=== PATIENT | female | born 1935 | race Caucasian/White ===

== ENCOUNTER → 2017-06-09 | Outpatient (CLI) | payer MEDICARE, BC, MEDICAID ==
[2016-03-09 10:12] VITALS: BMI 26.9
[~2017-06-09] MED LIST: ACET-2031 PO; ACET-2043 PO; ACET650S35 RC; ARI2 PO; ASCO250T86 PO; ASPI-757 PO; ATOR10TA65 PO; BETA1TAB PO; CALC300T5 PO; CEPH250C37 PO; CEPH500C24 PO; CHOL200025 PO; CHOL500025 PO; DIA5 PO; DIAZ2TAB74 PO; DIPH-1 PO; DIPH-740 PO; DONE5TAB74 PO; DULO30CA6 PO; DULO60CA56 PO; DULO60CA7 PO; ENOX60DI10 SQ; ESOM20CA31 PO; FERR-41 PO; FERR325T14 PO; FLUO-202 PO; FOLI-68 PO; GABA-547 PO; GABA-549 PO; GUAI118L69 PO; HYDR-2966 PO; HYDR-385 PO; HYDR12.561 PO; IPRA3AMP21 IH; LACT1CAP74 PO; LEVO25TA57 PO; LIDO1ADH44 TOP; LIDO700A29 TD; LOPE1LIQ49 PO; LOPE1TAB55 PO; LOR5/325 PO; LORA-1455 PO; MELA1TAB9 PO; MELA3TAB31 PO; MIRT-22 PO; MIRT-25 PO; MIRT7.5T2 PO; MOM PO; MULT-820 PO; MULT1TAB64 PO; NIT4 SL; OMEP-125 PO; ONDA4TAB SL; ONDA4TAB9 PO; PANT20TA27 PO; POLY15DR54 OP; POTA20TA94 PO; QUET25TA30 PO; QUET50TA21 PO; RANI-375 PO; RANI75TA5 PO; TRAM-420 PO; TRAZ-156 PO; TRAZ-163 PO; VALA100059 PO; VIT-7 PO; VITA1CAP46 PO; WARF-18 PO; WARF2.5T11 PO; [UNRECOGNIZED DRUG - CODE] MC; [UNRECOGNIZED DRUG - CODE] MM; [UNRECOGNIZED DRUG - CODE] OU; [UNRECOGNIZED DRUG - CODE] PO; [UNRECOGNIZED DRUG - OTHER]; [UNRECOGNIZED DRUG - REMARK]; [UNRECOGNIZED DRUG - SUPPLY]
[2017-06-09 08:36] LABS: INR 1.49
== END ==
LOC: ZZSPRING 00:49
PROVIDERS: ATTEND Nurse Practitioner Family
DX: Z51.81 Encounter for therapeutic drug level monitoring (principal); Z79.01 Long term (current) use of anticoagulants
CPT/HCPCS: 36415; 85610

== ENCOUNTER → 2017-06-15 | Outpatient (CLI) | payer MEDICARE, BC, MEDICAID ==
[2016-03-09 10:12] VITALS: BMI 26.9
[~2017-06-15] MED LIST changes: +FERR-53 PO; -FERR325T14 PO
[2017-06-15 08:37] LABS: INR 1.62
== END ==
LOC: ZZSPRING 01:52
PROVIDERS: ATTEND Nurse Practitioner Family
DX: Z51.81 Encounter for therapeutic drug level monitoring (principal); Z79.01 Long term (current) use of anticoagulants
CPT/HCPCS: 36415; 85610

== ENCOUNTER → 2017-06-22 | Outpatient (CLI) | payer MEDICARE, BC, MEDICAID ==
[2016-03-09 10:12] VITALS: BMI 26.9
[~2017-06-22] MED LIST changes: +METH4TAB66 PO
[2017-06-22 08:37] LABS: INR 2.07
== END ==
LOC: ZZSPRING 02:26
PROVIDERS: ATTEND Nurse Practitioner Family
DX: Z51.81 Encounter for therapeutic drug level monitoring (principal); Z79.01 Long term (current) use of anticoagulants
CPT/HCPCS: 36415; 85610

== ENCOUNTER → 2017-06-22 | Outpatient (CLI) | payer MEDICARE, BC, MEDICAID ==
[2016-03-09 10:12] VITALS: BMI 26.9
--- NOTE | 2017-06-22 15:05 | RADIOLOGY IMAGING REPORT ---
FACILITY: [facility] - [place] PATIENT NAME: Breanna Schwab : 1935 MR: [id number] V: [id number] EXAM DATE: ORDERING PHYSICIAN: PEACE CHAVEZ TECHNOLOGIST: [place] [facility] [place] : 1935 Visit/Account:[id number] Date of Sevice: 06/22/2017 SHOULDER MIN 2 VIEWS RIGHT HISTORY: Right shoulder pain COMPARISON: None FINDINGS: Right shoulder: There is no evidence of acute fracture or dislocation. Mildly to moderate degenerati ve changes with osteophytes. Tiny spurs at the AC joint. IMPRESSION: 1. Mild-moderate degenerative changes at the glenohumeral joint. Report Dictated By: Yung Arroyo MD at 06/22/2017 3:00 PM Report E-Signed By: Yung Arroyo MD at 06/22/2017 3:01 PM WSN:[id number]
== END ==
LOC: RAD 14:11
PROVIDERS: ATTEND Nurse Practitioner Primary Care
DX: M19.011 Primary osteoarthritis, right shoulder (principal)

== ENCOUNTER → 2017-07-06 | Outpatient (CLI) | payer MEDICARE, BC, MEDICAID ==
[2016-03-09 10:12] VITALS: BMI 26.9
[~2017-07-06] MED LIST changes: +SIME125T3 PO
[2017-07-06 09:34] LABS: INR 3.44
== END ==
LOC: ZZSPRING 02:34
PROVIDERS: ATTEND Nurse Practitioner Family
DX: Z51.81 Encounter for therapeutic drug level monitoring (principal); Z79.01 Long term (current) use of anticoagulants
CPT/HCPCS: 36415; 85610

== ENCOUNTER 2017-07-11 06:11 | Inpatient (IN) | payer MEDICARE, BC, MEDICAID ==
[2017-07-10 08:13] VITALS: BP 132/64
[~2017-07-11] VITALS: Ht 154.9 cm; Wt 74.5 kg
--- NOTE | 2017-07-11 06:31 | ER Report ---
History and Physical Time Seen By MD: 06:30 Hx. of Stated Complaint: patient is from [facility]; pt has had upper right side abdominal pain that started 0500; patient states the pain instantly hit; patient vomited in ER; brown emesis (BABAK MORAN MD) HPI/ROS CHIEF COMPLAINT: abdominal pain and vomiting HISTORY OF PRESENT ILLNESS: This is an 81 year old female. She awoke this morning and was in the process of getting up. She felt pain in the right upper quadrant of her abdomen. Severe pain. Worsened with movement or pressure there. Has felt bloated and more gassy than normal. She has some brown emesis as well. No rashes. History of ileostomy in the past that was reversed. No fevers or chills. No problems with urination. Last bowel movement was yesterday morning. She states that her bowel are constantly changing, but denies diarrhea. (BABAK MORAN MD) Allergies: Coded Allergies: No Known Drug Allergies (Unverified , 07/11/17) Home Meds Active Scripts Warfarin Sodium (WARFARIN SODIUM) 5 Mg Tablet, 0.5-1 TAB PO DAILY, #30 TAB 5 Refills take 2.5mg on Wednesday and Wednesday's and 5mg all other days. Or as instructed Prov:VELIA MCMANUS APRN-Debo 07/06/17 Quetiapine Fumarate (SEROQUEL) 25 Mg Tablet, 0.5-1 TAB PO BID, #453 TAB 1 Refill 0.5 tab po QAM and 1 tab po QHS Prov:VELIA MCMANUS APRN-Debo 06/21/17 Gabapentin (GABAPENTIN) 100 Mg Capsule, 2 TAB PO TID, #180 CAPSULE 5 Refills Prov:VELIA MCMANUS APRN-C 06/11/17 Omeprazole (OMEPRAZOLE) 20 Mg Capsule.dr, 1 CAP PO QDAY, #90 CAP 3 Refills Prov:VELIA MCMANUS APRN-C 04/07/17 Folic Acid (FOLIC ACID) 1 Mg Tablet, 1 MG PO QDAY, #90 TAB 1 Refill Prov:VELIA MCMANUS APRN-Debo 03/11/17 Atorvastatin Calcium (ATORVASTATIN CALCIUM) 10 Mg Tablet, 1 TAB PO QHS, #90 TAB 3 Refills Prov:VELIA MCMANUS APRN-C 03/11/17 Levothyroxine Sodium (SYNTHROID) 25 Mcg Tablet, 1 TAB PO QDAY, #90 TAB 1 Refill Prov:VEILA MCMANUS APRN-C 01/21/17 Glycerin/Propylene Glycol (ARTIFICIAL TEARS DROPS) 30 Ml Drops, 2 GTT OU QID, # 30 ML 5 Refills Prov:VELIA MCMANUS APRN-C 01/18/17 Acetaminophen (ACETAMINOPHEN) 500 Mg Tablet, 1 TAB PO TID, #270 TAB Prov:VELIA MCMANUS APRN-C 11/06/16 Cholecalciferol (Vitamin D3) (VITAMIN D3) 2,000 Unit Capsule, 1 CAP PO DAILY, # 90 CAP 1 Refill Prov:VELIA MCMANUS APRN-C 10/09/16 Multivitamin (MULTIVITAMINS) 1 Each Tablet, 1 TAB PO DAILY, #30 TAB 11 Refills Prov:LORENE GAO MD 08/03/16 Vitamin B Complex (VITAMIN B COMPLEX) 1 Each Capsule, 1 EACH PO BID, #180 CAPSULE 1 Refill Prov:VELIA MCMANUS APRN-C 07/15/16 Warfarin Sodium (WARFARIN SODIUM) 2.5 Mg Tablet, 2.5 MG PO T,W,TH,S,KELLY, #30 TAB 5 Refills Prov:VELIA MCMANUS APRN-C 05/13/16 Reported Medications Duloxetine Hcl (CYMBALTA) 60 Mg Capsule.dr, 60 MG PO BID, #10 CAP 07/11/17 Zeaxanthin (ZEAXANTHIN) 100 Gm Powder 07/11/17 Discontinued Scripts Simethicone (SIMETHICONE) 125 Mg Tab.chew, 1 TAB PO TID, #30 TAB.CHEW 2 Refills Prov:VELIA MCMANUS APRN-C 06/30/17 Methylprednisolone (METHYLPREDNISOLONE) 4 Mg Tab.ds.pk, 4 MG PO DIRECTED, #1 PACK 0 Refills Prov:PEACE CHAVEZ DNP, EXCHANGE OPERATOR-BC 06/22/17 Hydrocodone Bit/Acetaminophen (HYDROCODON-ACETAMINOPHEN 5-325) 1 Each Tablet, 1 EACH PO TID Y for PAIN, #90 TAB 0 Refills Hold for sedation Prov:VELIA MCMANUS RAHUL EXCHANGE OPERATOR-C 06/21/17 Duloxetine Hcl (CYMBALTA) 60 Mg Capsule.dr, 60 MG PO QDAY, #90 CAP 1 Refill Prov:VELIA MCMANUS APRN EXCHANGE OPERATOR-C 06/10/17 Valacyclovir Hcl (VALACYCLOVIR) 1,000 Mg Tablet, 1 TAB PO TID, #21 TAB Prov:VELIA MCMANUS RAHUL EXCHANGE OPERATOR-C 04/09/17 Mirtazapine (MIRTAZAPINE) 15 Mg Tablet, 1 TAB PO QHS, #30 TAB 5 Refills Prov:VELIA MCMANUS RAHUL VILLATOROP-C 04/07/17 Lidocaine (Aspercreme) 4 % Adh..patch, 1-2 PATCH TOP QHS, #60 PATCH 5 Refills Apply daily at bedtime. Leave in place for 12 hrs. 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 It sounds like she has had a colostomy reversed, hysterectomy. (BABAK MORAN MD) Reviewed Nurses Notes: Yes (BABAK MORAN MD) Hx Smoking: Yes Smoking Status: Former Smoker Hx Substance Use Disorder: No Hx Alcohol Use: No (BABAK MORAN MD) Constitutional Vital Sign - Last 24 Hours 07/11/17 07/11/17 07/11/17 07/11/17 06:11 06:17 06:18 06:41 Temp 98.2 Pulse ??? 112 87 Resp 17 B/P (MAP) 146/86 (106) 146/86 Pulse Ox 83 92 O2 Delivery Room Air 07/11/17 07/11/17 06:56 07:11 Pulse 86 86 Pulse Ox 91 93 (CELESTINE FELIPE MD) Physical Exam General Appearance: The patient is alert. She is in acute distress due to pain. Eyes: Pupils are equal, round. No pallor, injection or icterus. ENT: Dry mucous membranes, but otherwise normal. Neck: Supple and non tender. Respiratory: Lungs are clear to auscultation. Cardiovascular: Regular rate and rhythm. No murmurs, gallops or rubs. Normal capillary refill. No edema. Gastrointestinal: Abdomen is very firm and tender, mainly tender in right upper abdomen, but discomfort throughout. Guarding present, but no rebound. Hypoactive bowel sounds. Neurological: Alert and oriented. General weakness, but non-focal. Skin: Warm and dry. No rash. DIFFERENTIAL DIAGNOSIS: After history and physical exam, differential diagnosis was considered for abdominal pain including but not limited to bowel obstruction. ([facility]) Medical Decision Making Data Points Result Diagram: 07/12/17 0455 07/12/17 0455 Laboratory Hematology Test 07/11/17 06:30 Red Blood Count 5.43 M/uL (4.17-5.56) Mean Corpuscular Volume 75.5 fL (80.0-96.0) Mean Corpuscular Hemoglobin 23.6 pg (26.0-33.0) Mean Corpuscular Hemoglobin Concent 31.2 g/dL (32.0-36.0) Red Cell Distribution Width 19.4 % (11.5-14.5) Mean Platelet Volume 7.9 fL (7.2-11.1) Neutrophils (%) (Auto) 90.0 % (39.4-72.5) Lymphocytes (%) (Auto) 4.8 % (17.6-49.6) Monocytes (%) (Auto) 3.9 % (4.1-12.4) Eosinophils (%) (Auto) 0.8 % (0.4-6.7) Basophils (%) (Auto) 0.5 % (0.3-1.4) Nucleated RBC Relative Count (auto) 0.0 /100WBC Neutrophils # (Auto) 12.3 K/uL (2.0-7.4) Lymphocytes # (Auto) 0.7 K/uL (1.3-3.6) Monocytes # (Auto) 0.5 K/uL (0.3-1.0) Eosinophils # (Auto) 0.1 K/uL (0.0-0.5) Basophils # (Auto) 0.1 K/uL (0.0-0.1) Nucleated RBC Absolute Count (auto) 0.00 K/uL Peripheral Blood Smear No Y/N Prothrombin Time 22.1 seconds (12.0-14.4) Prothromb Time International Ratio 1.89 Activated Partial Thromboplast Time 31 seconds (23-35) Sodium Level 140 mmol/L (137-145) Potassium Level 4.6 mmol/L (3.5-5.0) Chloride Level 102 mmol/L (98-107) Carbon Dioxide Level 26 mmol/L (22-31) Blood Urea Nitrogen 22 mg/dl (7-18) Creatinine 1.30 mg/dl (0.52-1.04) Glomerular Filtration Rate Calc 39.3 Random Glucose 197 mg/dl (75-110) Lactate 1.7 mmol/L (0.7-2.1) Calcium Level 9.6 mg/dl (8.4-10.2) Total Bilirubin 0.7 mg/dl (0.2-1.3) Aspartate Amino Transf (AST/SGOT) 37 U/L (0-35) Alanine Aminotransferase (ALT/SGPT) 37 U/L (0-56) Alkaline Phosphatase 121 U/L (0-126) C-Reactive Protein 1.1 mg/dl (<1.0) Total Protein 7.4 gm/dl (6.3-8.2) Albumin 4.3 g/dl (3.5-5.0) Amylase Level 92 U/L (0-110) Lipase 78 U/L (23-300) Chemistry Test 07/11/17 06:30 White Blood Count 13.7 k/uL (4.5-11.0) Red Blood Count 5.43 M/uL (4.17-5.56) Hemoglobin 12.8 g/dL (12.0-16.0) Hematocrit 41.0 % (34.0-47.0) Mean Corpuscular Volume 75.5 fL (80.0-96.0) Mean Corpuscular Hemoglobin 23.6 pg (26.0-33.0) Mean Corpuscular Hemoglobin Concent 31.2 g/dL (32.0-36.0) Red Cell Distribution Width 19.4 % (11.5-14.5) Platelet Count 325 K/uL (150-450) Mean Platelet Volume 7.9 fL (7.2-11.1) Neutrophils (%) (Auto) 90.0 % (39.4-72.5) Lymphocytes (%) (Auto) 4.8 % (17.6-49.6) Monocytes (%) (Auto) 3.9 % (4.1-12.4) Eosinophils (%) (Auto) 0.8 % (0.4-6.7) Basophils (%) (Auto) 0.5 % (0.3-1.4) Nucleated RBC Relative Count (auto) 0.0 /100WBC Neutrophils # (Auto) 12.3 K/uL (2.0-7.4) Lymphocytes # (Auto) 0.7 K/uL (1.3-3.6) Monocytes # (Auto) 0.5 K/uL (0.3-1.0) Eosinophils # (Auto) 0.1 K/uL (0.0-0.5) Basophils # (Auto) 0.1 K/uL (0.0-0.1) Nucleated RBC Absolute Count (auto) 0.00 K/uL Peripheral Blood Smear No Y/N Prothrombin Time 22.1 seconds (12.0-14.4) Prothromb Time International Ratio 1.89 Activated Partial Thromboplast Time 31 seconds (23-35) Glomerular Filtration Rate Calc 39.3 Lactate 1.7 mmol/L (0.7-2.1) Calcium Level 9.6 mg/dl (8.4-10.2) Total Bilirubin 0.7 mg/dl (0.2-1.3) Aspartate Amino Transf (AST/SGOT) 37 U/L (0-35) Alanine Aminotransferase (ALT/SGPT) 37 U/L (0-56) Alkaline Phosphatase 121 U/L (0-126) C-Reactive Protein 1.1 mg/dl (<1.0) Total Protein 7.4 gm/dl (6.3-8.2) Albumin 4.3 g/dl (3.5-5.0) Amylase Level 92 U/L (0-110) Lipase 78 U/L (23-300) Coagulation Test 07/11/17 06:30 Prothrombin Time 22.1 seconds Prothromb Time International Ratio 1.89 Activated Partial Thromboplast Time 31 seconds (CELESTINE FELIPE MD) EKG/Imaging EKG Interpretation 07/11/2017 7:55:50 am EKG shows sinus tachycardia with frequent PVCs with nonspecific ST segment and T -wave abnormalities. (CELESTINE FELIPE MD) ED Course/Re-evaluation ED Course 07/11/2017 8:21:26 am spoke with from general surgery history physical exam pertinent lab data and imaging studies discussed. Dr. Frank recommends a small bowel follow-through with Gastrografin and an NG tube. We will perform these in the emergency department. He further recommended admission to the medicine service case was discussed with Dr. Higgins who agreed to accept patient at this time. Family was made aware of our decision to admit to medicine service with surgical consultation no questions or concerns at this time. Decision to Disposition Date: Jul 11, 2017 Decision to Disposition Time: 08:21 Turned Over 07/11/2017 7:19:03 am except to care of patient at 0705; briefly this is an 81- year-old female who woke this morning with severe abdominal pain specifically to the right upper quadrant. On exam she is diffusely tender but mostly tender in the right upper quadrant abdomen is firm. Reviewing the medical record I realized the patient has Coumadin listed as one of her medications this was confirmed by the daughter. I have added a PT INR to her blood work at this time. Patient is pending CT scan. White blood cell count was elevated with a left shift which raises concerns about possible intra-abdominal infection versus obstruction. (CELESTINE FELIPE MD) Depart Departure Latest Vital Signs Vital Signs Date Time Temp Pulse Resp B/P (MAP) Pulse Ox O2 Delivery O2 Flow Rate FiO2 07/11/17 07:11 86 93 07/11/17 06:18 98.2 17 146/86 Room Air (CELESTINE FELIPE MD) Impression: Primary Impression: Small bowel obstruction Condition: Condition Unchanged Disposition: Admitted from ER (to Dr Groves) Referrals: VELIA MCMANUS APRN EXCHANGE OPERATOR-C (PCP) BABAK MORAN MD Jul 11, 2017 06:31 CELESTINE FELIPE MD Jul 11, 2017 07:20
[2017-07-11] MEDS ORDERED: NS(*) 0.9% 1000 ML BAG 1,000 ML IV ONE (06:43)
[2017-07-11] MEDS ORDERED: DULO60CA56 PO (06:45)
[2017-07-11] MEDS ORDERED: MORPHINE 4 MG/ML SDV IVP ONE (06:45)
[2017-07-11] MEDS ORDERED: ZEAX100P (06:45)
[2017-07-11] MEDS ORDERED: ONDANSETRON 4 MG/2 ML VIAL IVP ONE (06:45)
[2017-07-11] MEDS ORDERED: PANTOPRAZOLE SOD 40 MG IV VIAL IVP ONE (06:45)
[2017-07-11 06:53] LABS: PLATELET COUNT, AUTOMATED 325 K/uL (150-450)
[2017-07-11] MEDS ORDERED: IOPAMIDOL 76% 75 ML INFUS BTL 75 ML ONE (07:04)
[2017-07-11] MEDS ORDERED: NS 0.9% 20 ML SDV 60 ML ONE (07:04)
[2017-07-11 07:36] LABS: INR 1.89
--- NOTE | 2017-07-11 08:00 | EKG ---
FACILITY: [facility] - [place] PATIENT NAME: GINA ZUNIGA : [id number] MR: [id number] V: [id number] EXAM DATE: ORDERING PHYSICIAN: CELESTINE FELIPE TECHNOLOGIST: SHEELA Test Reason : ABD PAIN Blood Pressure : / mmHG Vent. Rate : 101 BPM Atrial Rate : 101 BPM P-R Int : 160 ms QRS Dur : 074 ms QT Int : 382 ms P-R-T Axes : 054 022 011 degrees QTc Int : 495 ms Sinus tachycardia with frequent premature ventricular complexes Nonspecific ST and T wave abnormality QTc prolonged When compared with ECG of 11-MAR-2016 11:09, premature ventricular complexes are now present Nonspecific T wave abnormality now evident in Inferior leads Nonspecific T wave abnormality now evident in Anterolateral leads Confirmed by FERNANDO NATH ([id number]) on 07/11/2017 9:24:27 AM Referred By: MATTEO Confirmed By:FERNANDO NATH
--- NOTE | 2017-07-11 08:03 | RADIOLOGY IMAGING REPORT ---
FACILITY: [facility] - [place] PATIENT NAME: Breanna Schwab : 1935 MR: [id number] V: [id number] EXAM DATE: ORDERING PHYSICIAN: BABAK MORAN TECHNOLOGIST: Location: [facility] [place] Patient: Breanna Schwab : 1935 Visit/Account:[id number] Date of Sevice: 07/11/2017 ABDOMEN/PELVIS WITH CONTRAST COMPARISONS: CT abdomen and pelvis with and without contrast dated August 14, 2016 ADDITIONAL PERTINENT HISTORY: Abdominal pain with vomiting TECHNIQUE: Multiple axial images were obtained from the lung bases through the lesser trochanters bef ore and after the IV administration of IV contrast. One of the following dose optimization technique s was utilized in the performance of this exam: Automated exposure control; adjustment of the mA and/ or kV according to the patient's size; or use of an iterative reconstruction technique. Specific de tails can be referenced in the facility's radiology CT exam operational policy. CONTRAST: 75 ml of Isovue-370 FINDINGS: Lung bases: Minimal bibasilar regions of scarring with a small amount of loculated air within the pos terior pleural space at the left lung base. There is also continued pleural thickening in this region . Free air and free fluid: Small amount of free fluid overlying the liver. Liver: Negative. Spleen: Small low-attenuation lesion involving the medial aspect of the spleen. This is stable from p revious exam. Kidneys, ureters and urinary bladder: Low-attenuation lesions involving both kidneys compatible with simple appearing cysts. Adrenal glands: Negative. Pancreas: Negative. Gallbladder: Negative. Bowel and mesentery: Multiple dilated loops of small bowel with air-fluid levels with a transition po int in the mid lower abdomen likely within the distal aspects of the jejunum. Findings compatible wit h a high-grade small bowel obstruction.. Small hiatal hernia. Pelvic contents: Negative Lymph node assessment: Negative. Retroperitoneum: Negative. Abdominal vasculature: Atherosclerotic disease of the abdominal aorta and its major branches. Surrounding soft tissues: Negative. Osseous structures: Spondylitic change involving the thoracolumbar spine. Mild grade 1 anterior listh esis of L4 on L5. IMPRESSION: 1. Findings of a high-grade small bowel obstruction with the transition point likely within the dista l jejunum. 2. Simple appearing cysts involving both kidneys as well as the spleen. Report Dictated By: Jonathan Ceballos MD at 07/11/2017 7:51 AM Report E-Signed By: Jonathan Ceballos MD at 07/11/2017 7:58 AM WSN:[id number]
[2017-07-11] MEDS ORDERED: DIATRIZOATE MEGL/DIATRIZOA SOD 367 MG/ML SOLN ONE (08:21)
--- NOTE | 2017-07-11 08:26 | RADIOLOGY IMAGING REPORT ---
FACILITY: [facility] - [place] PATIENT NAME: Breanna Schwab : 1935 MR: [id number] V: [id number] EXAM DATE: ORDERING PHYSICIAN: CELESTINE FELIPE TECHNOLOGIST: [place] [facility] [place] : 1935 Visit/Account:[id number] Date of Sevice: 07/11/2017 CHEST SINGLE AP Indication: Abdominal pain. Comparison: None available Findings: The lungs are clear and well aerated. No pneumothorax or pleural effusion. Heart size is borderline enlarged. Scattered atherosclerosis within the aortic arch. Within the abdomen, there are multiple air-filled and dilated central small bowel loops. Correlate cl inically. IMPRESSION: 1. No acute cardiopulmonary process. 2. Dilated air filled central small bowel loops within the upper abdomen. Correlate clinically. Report Dictated By: Kevin Salazar at 07/11/2017 8:20 AM Report E-Signed By: Kevin Salazar at 07/11/2017 8:21 AM WSN:[id number]
[2017-07-11 08:58] VITALS: BP 145/78
[2017-07-11] MEDS ORDERED: LIDOCAINE 2% JELLY 5 ML TUBE TP ONE (09:30)
[2017-07-11] MEDS ORDERED: PANTOPRAZOLE SOD 40 MG IV VIAL IVP SCH (09:55)
[2017-07-11] MEDS ORDERED: OLANZapine ZYDIS ODT 5MG TABDP PO PRN (09:55)
[2017-07-11] MEDS: NS(*) 0.9% 1000 ML BAG 1,000 ML IV PRN (10:29)
[2017-07-11] MEDS ORDERED: HYDROmorphone HCL 2 MG/ML SDV IVP PRN ×2 (10:35→19:25)
--- NOTE | 2017-07-11 10:39 | Gen Surgery History & Physical ---
History of Present Illness Chief Complaint nausea vomiting and abdominal pain History of Present Illness This 81 year old female with complex medical history presents from her care facility to [facility] ED with onset of nausea, vomiting, and abdominal pain. She does report having a small BM and passing some flatus yesterday. No history of fever or chills. She is s/p low anterior colon resection for adenocarcinoma with protective loop ileostomy by Dr. Pittman, followed by ileostomy take down complicated by enterocutaneous fistula. She subsequently healed this with bowel rest and TPN. She has since had a adenocarcinoma of the left lung which was resected. She has had DVT x 2 and is hypercoagulable with a lupus anticoagulant, heterozygous for Factor V Leiden mutation, and has known hyperhomocysteinemia. She is treated with Coumadin. She has not had any follow up imaging for her malignancies. She denies recent weight loss. She saw Dr. Pittman on 07/06 for a lipoma. The patient's daughter, a nurse her at [facility], was in the process of setting up PET/CT scan. History Home Meds Active Scripts Warfarin Sodium (WARFARIN SODIUM) 5 Mg Tablet, 0.5-1 TAB PO DAILY, #30 TAB 5 Refills take 2.5mg on Wednesday and Wednesday's and 5mg all other days. Or as instructed Prov:VELIA MCMANUS APRN-C 07/06/17 Quetiapine Fumarate (SEROQUEL) 25 Mg Tablet, 0.5-1 TAB PO BID, #453 TAB 1 Refill 0.5 tab po QAM and 1 tab po QHS Prov:VELIA MCMANUS APRN-C 06/21/17 Gabapentin (GABAPENTIN) 100 Mg Capsule, 2 TAB PO TID, #180 CAPSULE 5 Refills Prov:VELIA MCMANUS APRNP-C 06/11/17 Omeprazole (OMEPRAZOLE) 20 Mg Capsule., 1 CAP PO QDAY, #90 CAP 3 Refills Prov:VELIA MCMANUS APRN-C 04/07/17 Folic Acid (FOLIC ACID) 1 Mg Tablet, 1 MG PO QDAY, #90 TAB 1 Refill Prov:VELIA MCMANUS APRN-C 03/11/17 Atorvastatin Calcium (ATORVASTATIN CALCIUM) 10 Mg Tablet, 1 TAB PO QHS, #90 TAB 3 Refills Prov:VELIA MCMANUS APRNP-C 03/11/17 Levothyroxine Sodium (SYNTHROID) 25 Mcg Tablet, 1 TAB PO QDAY, #90 TAB 1 Refill Prov:VELIA MCMANUS APRN TIMBER HAND-C 01/21/17 Glycerin/Propylene Glycol (ARTIFICIAL TEARS DROPS) 30 Ml Drops, 2 GTT OU QID, # 30 ML 5 Refills Prov:VELIA MCMANUS APRN-C 01/18/17 Acetaminophen (ACETAMINOPHEN) 500 Mg Tablet, 1 TAB PO TID, #270 TAB Prov:VELIA MCMANUS APRN-C 11/06/16 Cholecalciferol (Vitamin D3) (VITAMIN D3) 2,000 Unit Capsule, 1 CAP PO DAILY, # 90 CAP 1 Refill Prov:VELIA MCMANUS APRN-C 10/09/16 Multivitamin (MULTIVITAMINS) 1 Each Tablet, 1 TAB PO DAILY, #30 TAB 11 Refills Prov:LORENE GAO MD 08/03/16 Vitamin B Complex (VITAMIN B COMPLEX) 1 Each Capsule, 1 EACH PO BID, #180 CAPSULE 1 Refill Prov:VELIA MCMANUS APRN-C 07/15/16 Warfarin Sodium (WARFARIN SODIUM) 2.5 Mg Tablet, 2.5 MG PO T,W,TH,S,KELLY, #30 TAB 5 Refills Prov:VELIA MCMANUS APRNP-C 05/13/16 Reported Medications Duloxetine Hcl (CYMBALTA) 60 Mg Capsule.dr, 60 MG PO BID, #10 CAP 07/11/17 Zeaxanthin (ZEAXANTHIN) 100 Gm Powder 07/11/17 Discontinued Scripts Simethicone (SIMETHICONE) 125 Mg Tab.chew, 1 TAB PO TID, #30 TAB.CHEW 2 Refills Prov:VELIA MCMANUS APRN-C 06/30/17 Methylprednisolone (METHYLPREDNISOLONE) 4 Mg Tab.ds.pk, 4 MG PO DIRECTED, #1 PACK 0 Refills Prov:PEACE CHAVEZ DNP, TIMBER HAND-BC 06/22/17 Hydrocodone Bit/Acetaminophen (HYDROCODON-ACETAMINOPHEN 5-325) 1 Each Tablet, 1 EACH PO TID Y for PAIN, #90 TAB 0 Refills Hold for sedation Prov:VELIA MCMANUS RAHUL VILLATOROP-Debo 06/21/17 Duloxetine Hcl (CYMBALTA) 60 Mg Capsule.dr, 60 MG PO QDAY, #90 CAP 1 Refill Prov:VELIA MCMANUS RAHUL VILLATOROP-Debo 06/10/17 Valacyclovir Hcl (VALACYCLOVIR) 1,000 Mg Tablet, 1 TAB PO TID, #21 TAB Prov:SHANNENCHAIMVELIA APRNP-C 04/09/17 Mirtazapine (MIRTAZAPINE) 15 Mg Tablet, 1 TAB PO QHS, #30 TAB 5 Refills Prov:VELIA MCMANUS APRN-Debo 04/07/17 Lidocaine (Aspercreme) 4 % Adh..patch, 1-2 PATCH TOP QHS, #60 PATCH 5 Refills Apply daily at bedtime. Leave in place for 12 hrs. Then leave off for 12 hrs prior to replacing with a new patch Prov:SHANNENVELIA SOSA APRN 11/19/16 Allergies: Coded Allergies: No Known Drug Allergies (Unverified , 07/11/17) Patient History: Aneurysm FATHER, , Age:50's - 60 FH: breast cancer BROTHER OR SISTER FH: stroke FH: stroke FH: stroke FH: stroke FHx: colon cancer BROTHER OR SISTER, , Age:60 years and older GERD GERD Hypertension Hypertension MS (multiple sclerosis) BROTHER OR SISTER, , Age:41 Review of Systems All Systems Reviewed/Normal: Yes, Except as Noted Eyes: Vision Change Gastrointestinal: Nausea, Vomiting, Abdominal Pain Psychiatric: Other (dementia) Exam General Appearance: Alert, Awake, No Acute Distress, Afebrile Neuro: No Gross deficits ENT: Oropharynx Clear (dry mouth) Neck: No Masses Cardiovascular: Regular Rate and Rhythm Respiratory: No Respiratory Distress, Clear to Auscultation GI: Other (Abdomen is protuberant, soft, minimal generalized tenderness, no peritoneal findings, rebound or involuntary guarding, Bowel sounds present.) Extremities: Soft and Non Tender Integumentary: Skin Intact without Lesion / Mass Psych: Alert & Oriented X3 Medical Decision Making Data Points Result Diagram: 07/11/17 0630 07/11/17 0630 Assessment and Plan Time Spent: > 30 min Copies to: JEAN PITTMAN MD Venous Thromboembolism VTE Risk Physician Assess for VTE Risk: Yes Patient's VTE Risk: High Antithrombotics Is Pt On Any Antithrombotics?: Yes LISSETH GILMORE MD Jul 11, 2017 10:39
[2017-07-11] MEDS: ACETAMINOPHEN(*)1000 MG/100 ML 100 ML IVPB PRN (10:43)
[2017-07-11 10:53] VITALS: Ht 154.9 cm; Wt 74.5 kg
--- NOTE | 2017-07-11 10:55 | History & Physical ---
History of Present Illness History of Present Illness 81yo female with a h/o adenocarcinoma of colon with resection and a temporary ileostomy who came to the ER for abdominal pain and nausea. For the last couple of weeks, she had had more "gas". She has been eating and having BM. No reported changes in the color, frequency or consistency of BM. Today, she reported RUQ abdominal pain that radiated to the left. She had nausea and vomited in the ER. No cp/sob. In the ER, an NG was attempted 5 times without success (It was placed by Dr. Colon, at the bedside). She received a liter of crystalloid, Protonix and Zofran. Currently, she denies nausea and abdominal pain. The NG in her nose is what is bothering her the most. History Problems: (1) History of stroke (2) Depression Status: Chronic (3) GERD (gastroesophageal reflux disease) Status: Chronic (4) CHF (congestive heart failure) Status: Resolved (5) Dementia Status: Chronic (6) History of DVT (deep vein thrombosis) Status: Chronic (7) CHRONIC ATRIAL FIBRILLATION Status: Chronic (8) Mixed hyperlipidemia Status: Chronic (9) Hypothyroid Status: Chronic (10) Lung cancer Onset Date: 11/15/2013 Status: Chronic (11) Cancer of sigmoid colon Onset Date: 10/17/2014 Status: Chronic (12) History of hysterectomy (13) History of appendectomy (14) History of tonsillectomy (15) S/P partial lobectomy of lung Status: Chronic (16) S/P partial colectomy Status: Chronic Home Meds Active Scripts Warfarin Sodium (WARFARIN SODIUM) 5 Mg Tablet, 0.5-1 TAB PO DAILY, #30 TAB 5 Refills take 2.5mg on Wednesday and Wednesday's and 5mg all other days. Or as instructed Prov:VELIA MCMANUS APRN-C 07/06/17 Quetiapine Fumarate (SEROQUEL) 25 Mg Tablet, 0.5-1 TAB PO BID, #453 TAB 1 Refill 0.5 tab po QAM and 1 tab po QHS Prov:VELIA MCMANUS APRNP-C 06/21/17 Gabapentin (GABAPENTIN) 100 Mg Capsule, 2 TAB PO TID, #180 CAPSULE 5 Refills Prov:VELIA MCMANUS APRN-C 06/11/17 Omeprazole (OMEPRAZOLE) 20 Mg Capsule.dr, 1 CAP PO QDAY, #90 CAP 3 Refills Prov:VELIA MCMANUS APRNP-C 04/07/17 Folic Acid (FOLIC ACID) 1 Mg Tablet, 1 MG PO QDAY, #90 TAB 1 Refill Prov:VELIA MCMANUS APRNP-C 03/11/17 Atorvastatin Calcium (ATORVASTATIN CALCIUM) 10 Mg Tablet, 1 TAB PO QHS, #90 TAB 3 Refills Prov:VELIA MCMANUS APRN [employer] COMPLIANCE OFFICER-C 03/11/17 Levothyroxine Sodium (SYNTHROID) 25 Mcg Tablet, 1 TAB PO QDAY, #90 TAB 1 Refill Prov:VELIA MCMANUS APRN-C 01/21/17 Glycerin/Propylene Glycol (ARTIFICIAL TEARS DROPS) 30 Ml Drops, 2 GTT OU QID, # 30 ML 5 Refills Prov:VELIA MCMANUS APRN-C 01/18/17 Acetaminophen (ACETAMINOPHEN) 500 Mg Tablet, 1 TAB PO TID, #270 TAB Prov:VELIA MCMANUS APRNP-C 11/06/16 Cholecalciferol (Vitamin D3) (VITAMIN D3) 2,000 Unit Capsule, 1 CAP PO DAILY, # 90 CAP 1 Refill Prov:VELIA MCMANUS APRN [employer]ANCE OFFICER-C 10/09/16 Multivitamin (MULTIVITAMINS) 1 Each Tablet, 1 TAB PO DAILY, #30 TAB 11 Refills Prov:LORENE GAO MD 08/03/16 Vitamin B Complex (VITAMIN B COMPLEX) 1 Each Capsule, 1 EACH PO BID, #180 CAPSULE 1 Refill Prov:VELIA MCMANUS APRNP-C 07/15/16 Warfarin Sodium (WARFARIN SODIUM) 2.5 Mg Tablet, 2.5 MG PO T,W,TH,S,KELLY, #30 TAB 5 Refills Prov:VELIA MCMANUS APRN [employer] COMPLIANCE OFFICER-C 05/13/16 Reported Medications Duloxetine Hcl (CYMBALTA) 60 Mg Capsule.dr, 60 MG PO BID, #10 CAP 07/11/17 Zeaxanthin (ZEAXANTHIN) 100 Gm Powder 07/11/17 Discontinued Scripts Simethicone (SIMETHICONE) 125 Mg Tab.chew, 1 TAB PO TID, #30 TAB.CHEW 2 Refills Prov:VELIA MCMANUS APRNP-C 06/30/17 Methylprednisolone (METHYLPREDNISOLONE) 4 Mg Tab.ds.pk, 4 MG PO DIRECTED, #1 PACK 0 Refills Prov:PEACE CHAVEZ DNP, BANK COMPLIANCE OFFICER-BC 06/22/17 Hydrocodone Bit/Acetaminophen (HYDROCODON-ACETAMINOPHEN 5-325) 1 Each Tablet, 1 EACH PO TID Y for PAIN, #90 TAB 0 Refills Hold for sedation Prov:VELIA MCMANUS APRNP-C 06/21/17 Duloxetine Hcl (CYMBALTA) 60 Mg Capsule.dr, 60 MG PO QDAY, #90 CAP 1 Refill Prov:VELIA MCMANUS APRNP-C 06/10/17 Valacyclovir Hcl (VALACYCLOVIR) 1,000 Mg Tablet, 1 TAB PO TID, #21 TAB Prov:VELIA MCMANUS APRNP-C 04/09/17 Mirtazapine (MIRTAZAPINE) 15 Mg Tablet, 1 TAB PO QHS, #30 TAB 5 Refills Prov:VELIA MCMANUS APRNP-C 04/07/17 Lidocaine (Aspercreme) 4 % Adh..patch, 1-2 PATCH TOP QHS, #60 PATCH 5 Refills Apply daily at bedtime. Leave in place for 12 hrs. Then leave off for 12 hrs prior to replacing with a new patch Prov:VELIA MCMANUS APRNP- 11/19/16 Allergies: Coded Allergies: No Known Drug Allergies (Unverified , 07/11/17) Patient History: Aneurysm FATHER, , Age:50's - 60 FH: breast cancer BROTHER OR SISTER FH: stroke FH: stroke FH: stroke FH: stroke FHx: colon cancer BROTHER OR SISTER, , Age:60 years and older GERD GERD Hypertension Hypertension MS (multiple sclerosis) BROTHER OR SISTER, , Age:41 Hx Smoking: Yes Smoking Status: Former Smoker Caffeine Intake: Coffee, Tea Caffeine/Cups Per Day: DECAF Hx Alcohol Use: No Hx Substance Use Disorder: No Social Drug Use: Never Review of Systems All Systems Reviewed/Normal: Yes, Except as Noted Exam Vital Signs Vital Signs Date Time Temp Pulse Resp B/P (MAP) Pulse Ox O2 Delivery O2 Flow Rate FiO2 07/11/17 08:58 97.2 90 16 145/78 (100) 98 Nasal Cannula 3.0 General Appearance: Alert, Awake, Other (She appears mildly uncomfortable.) Eyes: PERRLA ENT: Other (dry mucous membranes) Cardiovascular: Regular Rate and Rhythm Respiratory: Clear to Auscultation GI: Other (Hypoactive BS, soft, non-distended, mild discomfort periumbilically with palpation. No guarding or peritoneal signs.) Extremities: No Edema Integumentary: No Jaundice, No Cyanosis Medical Decision Making Data Points Result Diagram: 07/11/1762907/11/17 06 Item Value Date Time Lactate 1.7 mmol/L 07/11/17629 Creatinine 1.30 mg/dl H 07/11/17629 Creatinine 1.10 mg/dl H 11/19/16 1010 Aspartate Amino Transf (AST/SGOT) 37 U/L H 07/11/17 0630 Alanine Aminotransferase (ALT/SGPT) 37 U/L 07/11/17 0630 C-Reactive Protein 1.1 mg/dl H 07/11/17 0630 Neutrophils (%) (Auto) 90.0 % H 07/11/17 0630 Lymphocytes (%) (Auto) 4.8 % L 07/11/17 0630 Mean Corpuscular Volume 75.5 fL L 07/11/17 0630 Prothromb Time International Ratio 1.89 07/11/17 0630 EKG / Imaging Imaging CXR - 1. No acute cardiopulmonary process. 2. Dilated air filled central small bowel loops within the upper abdomen. Correlate clinically. Abd/Pelvis CT - 1. Findings of a high-grade small bowel obstruction with the transition point likely within the distal jejunum. 2. Simple appearing cysts involving both kidneys as well as the spleen. Assessment and Plan Problems: (1) Small bowel obstruction Status: Acute Assessment & Plan: She presented with sudden onset of RUQ pain that radiated to the left, but has complained of "gas" for a couple of weeks. CT confirmed a high-grade SBO with a possible transition point within the distal jejunum. Dr. Frank is following and has ordered a Gastrografin small bowel follow through study. (2) Depression Status: Chronic Assessment & Plan: Hold Cymbalta while NPO. (3) Hypercoagulable state Status: Chronic Assessment & Plan: She has a h/o DVT x2. Chronically on warfarin and INR is 1.89. Will hold warfarin and follow INR daily. If surgery is needed, then will reverse with FFP. If INR, drops too low then might consider a heparin drip. (4) GERD (gastroesophageal reflux disease) Status: Chronic Assessment & Plan: Chronically in omeprazole. Will use Protonix IV. (5) Dementia Status: Chronic Assessment & Plan: It is complicated by visual and tactile hallucinations. She chronically takes Seroquel. Will use Zydis scheduled and prn. QTc is borderline prolonged on ECG. However, the daughter is aware of the risks of arrhythmia and still would like her on antipsychotic medication. (6) Cancer of sigmoid colon Onset Date: 10/17/2014 Status: Chronic Assessment & Plan: She the cancer resected and had an ileostomy for a time. That was reversed. Each surgery was complicated by slow healing. (7) Lung cancer Onset Date: 11/15/2013 Status: Chronic Assessment & Plan: She had resection x2. Copies to: ZO DENIS MD; LISSETH FRANK MD; VELIA MCMANUS APRN BANK COMPLIANCE OFFICER-C; JEAN PITTMAN MD Venous Thromboembolism Antithrombotics Is Pt On Any Antithrombotics?: Yes Exam Sepsis Risk: No Definite Risk FERNANDO NATH MD Jul 11, 2017 10:55
[2017-07-11] MEDS: HYPROMELLOSE 0.4% LUB 15ML BTL OU SCH ×3 (13:00→21:13)
--- NOTE | 2017-07-11 16:46 | RADIOLOGY IMAGING REPORT ---
FACILITY: [facility] PATIENT NAME: Breanna Schwab : 1935 MR: [id number] V: [id number] EXAM DATE: ORDERING PHYSICIAN: CELESTINE FELIPE TECHNOLOGIST: Location: [facility] [place] Patient: Breanna Schwab : 1935 Visit/Account:[id number] Date of Sevice: 07/11/2017 Examination: Small bowel series HISTORY: Possible obstruction. Further evaluate. TECHNIQUE: A manager business banking image was obtained. Patient was then given water soluble contrast through the naso gastric tube. Subsequent overhead imaging was obtained at one hour and the 4 hour interval. FINDINGS: On the manager business banking images, nasogastric tube is in place with its tip overlying the left upper quadrant in t he expected location of the stomach. There are gas-filled small bowel loops within the central abdome n. Gas and stool seen within the colon and rectum. There is excreted contrast within the renal collec ting systems as well as the bladder. On the one-hour images, contrast is seen within the stomach and within scattered small bowel loops. There are better defined dilated, gas-filled small bowel loops wi thin the central abdomen and pelvis. On the 4 hour images, contrast is now identified within the cecu m, ascending colon and the transverse colon. No evidence to suggest a high-grade bowel obstruction. S ome residual air-filled bowel loops remain within the midabdomen. These are less prominent than on th e one-hour image. IMPRESSION: 1. No evidence of high-grade bowel obstruction. 2. Less pronounced air filled small bowel loops within the central abdomen between the one hour and 4 images may reflect a resolving small bowel ileus. Correlate clinically. Report Dictated By: Kevin Salazar at 07/11/2017 4:36 PM Report E-Signed By: Kevin Salazar at 07/11/2017 4:42 PM WSN:[id number]
[2017-07-11] MEDS ORDERED: OLANZapine ZYDIS ODT 5MG TABDP PO SCH (21:00)
[2017-07-11 21:03] VITALS: BP 100/58
[2017-07-11 23:13] VITALS: BP 126/69
[2017-07-12] MEDS: NS(*) 0.9% 1000 ML BAG 1,000 ML IV PRN (01:45)
[2017-07-12 02:35] VITALS: BP 123/54
[2017-07-12] MEDS: ACETAMINOPHEN(*)1000 MG/100 ML 100 ML IVPB PRN ×2 (02:39→14:15)
[2017-07-12 05:19] LABS: PLATELET COUNT, AUTOMATED 275 K/uL (150-450)
[2017-07-12 05:38] LABS: INR 1.92
[2017-07-12 07:44] VITALS: BP 133/64
[2017-07-12] MEDS ORDERED: NS(*) 0.9% 1000 ML BAG 1,000 ML IV PRN (07:51)
--- NOTE | 2017-07-12 09:07 | Hospitalist Progress Note ---
Subjective Progress Notes Subjective She denies any pain. No nausea. She has been having BMs. She is awake and alert this AM. She is somewhat agitated. Physical Exam Vital Signs Date Time Temp Pulse Resp B/P (MAP) Pulse Ox O2 Delivery O2 Flow Rate FiO2 07/12/17 07:44 99.0 91 12 133/64 (87) 98 Nasal Cannula 7.0 07/11/17 22:33 40.0 Intake and Output 07/13/17 07:00 Output Total 50 ml Balance -50 ml Output Gastric Drainage Total 50 ml General Appearance: Alert, Awake Neuro: No Gross deficits Cardiovascular: Other (Fairly regular distant tones) Respiratory: Clear to Auscultation GI: Other (Soft/BS present) Extremities: Warm, Perfused Result Diagram: 07/12/1745407/12/17454 Assessment and Plan Problems: (1) Small bowel obstruction Status: Acute Assessment & Plan: She presented with sudden onset of RUQ pain that radiated to the left, but had complained of "gas" for a couple of weeks. CT confirmed a high-grade SBO with a possible transition point within the distal jejunum. Dr. Frank evaluated her and ordered a Gastrografin small bowel follow through study, which showed probable resolution of the obstruction (or ileus). She has had several BMs now. She does have appetite. The NG tube has been agitating her. Will DC NG and place on clear liquids. (2) Depression Status: Chronic Assessment & Plan: Held Cymbalta while NPO - will resume if she tolerates clear liquids. (3) Hypercoagulable state Status: Chronic Assessment & Plan: She has a h/o DVT x2. Chronically on warfarin and INR is 1.92 today. Will hold warfarin again today and follow INR. If surgery is needed, then will reverse with FFP. If INR, drops too low will consider a heparin drip vs. Lovenox. (4) GERD (gastroesophageal reflux disease) Status: Chronic Assessment & Plan: Chronically in omeprazole. Currently on Protonix IV. (5) Dementia Status: Chronic Assessment & Plan: It is complicated by visual and tactile hallucinations. She did have sedation and ultimately agitation with the pain meds (Dilaudid). She has been chronically taking Seroquel (12.5mg AM and 25mg HS). Will try to get her back on her usual regimen. QTc is borderline prolonged on ECG. However, the daughter is aware of the risks of arrhythmia and still would like her on antipsychotic medication. (6) Cancer of sigmoid colon Onset Date: 10/17/2014 Status: Chronic Assessment & Plan: She the cancer resected and had an ileostomy for a time, which was reversed. Each surgery was complicated by slow healing. (7) Lung cancer Onset Date: 11/15/2013 Status: Chronic Assessment & Plan: She had previous resection. (8) Acute delirium Status: Acute Assessment & Plan: She did have some delirium and sedation most likely related to the Dilaudid and Zyprexa. She had some respiratory suppression related to this as well. She was on BiPAP overnight and seems to have cleared much of it. Will try to get her back on her usual regimen. Exam Sepsis Risk: Sepsis Risk ANA PATE MD Jul 12, 2017 09:07
[2017-07-12] MEDS: HYPROMELLOSE 0.4% LUB 15ML BTL OU SCH ×6 (09:30→21:04)
[2017-07-12] MEDS: LEVOTHYROXINE SOD 0.025 MG TAB PO SCH (09:30)
[2017-07-12] MEDS: QUEtiapine FUM 25 MG TAB PO SCH (09:30)
[2017-07-12] MEDS: PANTOPRAZOLE SOD 40 MG IV VIAL IVP SCH (09:30)
--- NOTE | 2017-07-12 09:32 | General Surgery Progress Note ---
Subjective Progress Notes Subjective sore throat from NGT Physical Exam Vital Signs Date Time Temp Pulse Resp B/P (MAP) Pulse Ox O2 Delivery O2 Flow Rate FiO2 07/11/17 08:58 97.2 90 16 145/78 (100) 98 Nasal Cannula 3.0 Intake and Output 07/12/17 07:00 Intake Total 600 ml Balance 600 ml Intake IV Total 600 ml GI: Other (Abdomen remains without peritoneal signs) Result Diagram: 07/11/17 0630 07/11/17 0630 Assessment and Plan Problems: (1) Small bowel obstruction Status: Acute Assessment & Plan: 07/11/2017: Will get Gastrografin SBFT 07/12/2017: SBFT shows no obstruction. Having BM's, NGT removed. Will sign off. Patient to follow up with Dr. Yoder as scheduled after the PET/CT. Exam Sepsis Risk: No Definite Risk LISSETH GILMORE MD Jul 11, 2017 10:41
--- NOTE | 2017-07-12 09:38 | General Surgery Progress Note ---
Subjective Progress Notes Subjective glad to have NGT out, had multiple BM's Physical Exam Vital Signs Date Time Temp Pulse Resp B/P (MAP) Pulse Ox O2 Delivery O2 Flow Rate FiO2 07/12/17 07:44 99.0 91 12 133/64 (87) 98 Nasal Cannula 7.0 07/11/17 22:33 40.0 Intake and Output 07/13/17 07:00 Output Total 50 ml Balance -50 ml Output Gastric Drainage Total 50 ml # Bowel Movements 1 General Appearance: No Acute Distress, Afebrile GI: Soft and Non-Tender (Bowel sounds present) Result Diagram: 07/12/17 0455 07/12/17 0455 Assessment and Plan Problems: (1) Small bowel obstruction Status: Acute Assessment & Plan: 07/11/2017: Will get Gastrografin SBFT 07/12/2017: SBFT shows no obstruction. Having BM's, NGT removed. Will sign off. Patient to follow up with Dr. Yoder as scheduled after the PET/CT. Exam Sepsis Risk: No Definite Risk LISSETH GILMORE MD Jul 12, 2017 09:38
[2017-07-12 10:49] VITALS: BP 124/63
[2017-07-12] MEDS ORDERED: WARF-18 PO (15:31)
[2017-07-12 15:46] VITALS: BP 119/69
--- NOTE | 2017-07-12 15:49 | Medical Nutrition Therapy ---
Nutrition Anthropometrics Height (Inches): 61.00 Height (Calculated Centimeters: 154.229855 Weight (Pounds): 164 Weight (Calculated Kilograms): 74.474 BMI Calculated: 30.98 Nicholas Nutrition Score: Adequate Nicholas Nutrition Risk Score: 20 Dietary Referral Nutrition Risk Factors: Nutrition Risk Comment: Physical Findings Physical Appearance: Obese BMI 30-39 Skin Appearance Skin Appearance: Edema Edema Location Modifier: Edema Location: Type of Edema: Degree of Edema: Gastrointestinal Symptoms GI Symtoms: Diarrhea, Change in Bowel Pattern Tube Present: NG Bowel Sounds: Recent Bowel Pattern: Stool Characteristics: Nutritional Diagnosis Nutritional Risk Acuity 1: GI Obstruction Nutritional Risk Acuity 2: St III or IV Press Ulcer (blackened skin, unstaged) Past Medical History: HTN, COPD, colon and lung Ca, dementia, IN, DVT, Htn, GERD, dysphagia, hypothyroid Nutritional Acuity: 2-Moderate Nutrition Diagnosis: Increased Nutrient Needs, Altered GI Function Nutrition Etiology: Physiological Causes Nutrition Problem/Etiology/Sym: AEB SBO with unstaged pressure ulcer to buttock Energy Requirement: 1450 (HB X 1.3 SF) Protein Requirement: 75 (1gm/kg) Fluid Requirement: 1480 (20ml/kg) Diet Type: Clear Liquids Nutrition Intervention: Incr diet as tolerated Additional Diet Restrictions: OFFER CLEAR LIQUID NUTR SUPPLEMENTS Nutrition Monitoring & Eval Nutrition Goals: Eat 75-100% Meal RD Patient Assessment Time: [address] Assessment Type: RD Assessment Patient Nutrition Acuity: 2-Moderate Follow Up Date: Jul 14, 2017 Nutritional Comment: Pt admitted with abdominal pain, N/V. NPO d/t CT. CRP 1.1, Glu 197, High BUN/Creat. Class I obesity with BMI of 31.0. Follow for diet change, diagnosis, labs, etc. 07/12/17 Pt admitted with SBO, Dr reporting no obstuction currently with hypoactive bowel and liquid stools. Nursing reported blackened ulceration to buttock. Alb 3.2, BG 197, creatinine 1.2, hgb 10.7. Diet advanced to clear liquids. Will offer clear liquid nutr supplement to increase kcal and protein to assist with healing of pressure ulcer. MITCHELL JUSTICE Jul 12, 2017 15:49
[2017-07-12 19:30] VITALS: BP 122/94
[2017-07-12] MEDS ORDERED: QUEtiapine FUM 25 MG TAB PO SCH (21:00)
[2017-07-12 22:58] VITALS: BP 123/69
[2017-07-13 08:15] VITALS: BP 130/82
[2017-07-13] MEDS: LEVOTHYROXINE SOD 0.025 MG TAB PO SCH (08:28)
[2017-07-13] MEDS: QUEtiapine FUM 25 MG TAB PO SCH (08:29)
[2017-07-13] MEDS: HYPROMELLOSE 0.4% LUB 15ML BTL OU SCH (08:29)
[2017-07-13] MEDS: PANTOPRAZOLE SOD 40 MG IV VIAL IVP SCH (08:29)
--- NOTE | 2017-07-13 08:59 | Hospitalist Depart ---
Discharge Summary Reason for Hosp/Final Diag: (1) Small bowel obstruction Status: Acute Hospital Course & Plan: She presented with sudden onset of RUQ pain that radiated to the left, but had complained of "gas" for a couple of weeks. CT confirmed a high-grade SBO with a possible transition point within the distal jejunum. Dr. Frank evaluated her and ordered a Gastrografin small bowel follow through study, which showed resolution of the obstruction. She has had several BMs now. She has tolerated oral intake. (2) Depression Status: Chronic Hospital Course & Plan: She is on chronic treatment with Cymbalta. (3) Hypercoagulable state Status: Chronic Hospital Course & Plan: She is on chronic treatment with warfarin. The medication was held initially in case surgery was required. It has now been restarted and she will need outpatient follow up for INR monitoring. (4) GERD (gastroesophageal reflux disease) Status: Chronic Hospital Course & Plan: She is on chronic treatment with Prilosec. (5) Dementia Status: Chronic Hospital Course & Plan: She is on chronic treatment with Seroquel. (6) Cancer of sigmoid colon Onset Date: 10/17/2014 Status: Chronic Hospital Course & Plan: She the cancer resected and had an ileostomy for a time , which was reversed. (7) Lung cancer Onset Date: 11/15/2013 Status: Chronic Hospital Course & Plan: She had previous resection. (8) Acute delirium Status: Acute Hospital Course & Plan: Her mentation has cleared after discontinuing Dilaudid. Departure Latest Vital Signs Vital Signs 07/13/17 08:15 FiO2 40.0 Weight (Pounds): 164 Weight (Ounces): 3.0 Result Diagram: 07/12/17 0455 07/12/17 0455 Condition: Improved Discharge: Assisted Living Discharge Instructions Home Meds Active Scripts Quetiapine Fumarate (SEROQUEL) 25 Mg Tablet, 0.5-1 TAB PO BID, #453 TAB 1 Refill 0.5 tab po QAM and 1 tab po QHS Prov:VELIA MCMANUS APRN [employer]ER-C 06/21/17 Gabapentin (GABAPENTIN) 100 Mg Capsule, 2 TAB PO TID, #180 CAPSULE 5 Refills Prov:VELIA MCMANUS APRN [employer]ICER-C 06/11/17 Omeprazole (OMEPRAZOLE) 20 Mg Capsule.dr, 1 CAP PO QDAY, #90 CAP 3 Refills Prov:VELIA MCMANUS APRNP-C 04/07/17 Folic Acid (FOLIC ACID) 1 Mg Tablet, 1 MG PO QDAY, #90 TAB 1 Refill Prov:VELIA MCMANUS APRNP-C 03/11/17 Atorvastatin Calcium (ATORVASTATIN CALCIUM) 10 Mg Tablet, 1 TAB PO QHS, #90 TAB 3 Refills Prov:VELIA MCMANUS APRNP-C 03/11/17 Levothyroxine Sodium (SYNTHROID) 25 Mcg Tablet, 1 TAB PO QDAY, #90 TAB 1 Refill Prov:VELIA MCMANUS APRNP-C 01/21/17 Glycerin/Propylene Glycol (ARTIFICIAL TEARS DROPS) 30 Ml Drops, 2 GTT OU QID, # 30 ML 5 Refills Prov:VELIA MCMANUS APRNP-C 01/18/17 Acetaminophen (ACETAMINOPHEN) 500 Mg Tablet, 1 TAB PO TID, #270 TAB Prov:VELIA MCMANUS APRN [facility] 11/06/16 Cholecalciferol (Vitamin D3) (VITAMIN D3) 2,000 Unit Capsule, 1 CAP PO DAILY, # 90 CAP 1 Refill Prov:VELIA MCMANUS APRNP-C 10/09/16 Multivitamin (MULTIVITAMINS) 1 Each Tablet, 1 TAB PO DAILY, #30 TAB 11 Refills Prov:LORENE GAO MD 08/03/16 Vitamin B Complex (VITAMIN B COMPLEX) 1 Each Capsule, 1 EACH PO BID, #180 CAPSULE 1 Refill Prov:VELIA MCMANUS APRN [facility] 07/15/16 Reported Medications Warfarin Sodium (WARFARIN SODIUM) 5 Mg Tablet, 5 MG PO DAILY, TAB Take one 5 mg tab on tu, wed, th, sat, and sun Take half tab (2.5 mg) on Wed and Wednesday07/12/17 Duloxetine Hcl (CYMBALTA) 60 Mg Capsule., 60 MG PO BID, #10 CAP 07/11/17 Zeaxanthin (ZEAXANTHIN) 100 Gm Powder 07/11/17 Discontinued Scripts Warfarin Sodium (WARFARIN SODIUM) 5 Mg Tablet, 0.5-1 TAB PO DAILY, #30 TAB 5 Refills take 2.5mg on Wednesday and Wednesday's and 5mg all other days. Or as instructed Prov:VELIA MCMANUS APRN-C 07/06/17 Warfarin Sodium (WARFARIN SODIUM) 2.5 Mg Tablet, 2.5 MG PO T,W,TH,S,KELLY, #30 TAB 5 Refills Prov:VELIA MCMANUS APRN-C 05/13/16 Simethicone (SIMETHICONE) 125 Mg Tab.chew, 1 TAB PO TID, #30 TAB.CHEW 2 Refills Prov:VELIA MCMANUS APRN-C 06/30/17 Methylprednisolone (METHYLPREDNISOLONE) 4 Mg Tab.ds.pk, 4 MG PO DIRECTED, #1 PACK 0 Refills Prov:PEACE CHAVEZ DNP, [employer] SLICER-BC 06/22/17 Hydrocodone Bit/Acetaminophen (HYDROCODON-ACETAMINOPHEN 5-325) 1 Each Tablet, 1 EACH PO TID Y for PAIN, #90 TAB 0 Refills Hold for sedation Prov:VELIA MCMANUS APRN-C 06/21/17 Duloxetine Hcl (CYMBALTA) 60 Mg Capsule.dr, 60 MG PO QDAY, #90 CAP 1 Refill Prov:VELIA MCMANUS APRN-C 06/10/17 Valacyclovir Hcl (VALACYCLOVIR) 1,000 Mg Tablet, 1 TAB PO TID, #21 TAB Prov:VELIA MCMANUS APRN-C 04/09/17 Mirtazapine (MIRTAZAPINE) 15 Mg Tablet, 1 TAB PO QHS, #30 TAB 5 Refills Prov:VELIA MCMANUS APRN-C 04/07/17 Lidocaine (Aspercreme) 4 % Adh..patch, 1-2 PATCH TOP QHS, #60 PATCH 5 Refills Apply daily at bedtime. Leave in place for 12 hrs. Then leave off for 12 hrs prior to replacing with a new patch Prov:VELIA MCMANUS APRN-C 11/19/16 Diet: Regular Activity: As Tolerated Copies to: VELIA MCMANUS APRN Venous Thromboembolism Antithrombotics Is Pt On Any Antithrombotics?: Yes JEAN MILLAN DO Jul 13, 2017 08:59
[2017-07-13] MEDS ORDERED: INFLUENZA VIRUS VAC 0.5 ML SYR IM ONLY ONE (09:55)
[2017-07-13] MEDS ORDERED: ACETAMINOPHEN 325 MG TAB PO PRN (10:10)
[2017-07-15] MEDS ORDERED: WARF-18 PO (08:13)
[2017-07-15] MEDS ORDERED: DULO60CA56 PO (08:13)
== END 2017-07-13 11:05 | disposition home or self-care (01) | DRG 389 ==
LOC: ER 06:51 → MED 08:19
PROVIDERS: ADMIT Internal Medicine; ATTEND Internal Medicine
PROC: 0D9670Z Drainage of Stomach with Drainage Device, Via Natural or Artificial Opening (ICD-10-PCS; principal; 2017-07-11)
DX: K56.600 Partial intestinal obstruction, unspecified as to cause (principal); D68.51 Activated protein C resistance; E72.11 Homocystinuria; F03.90 Unspecified dementia, unspecified severity, without behavioral disturbance, psychotic disturbance, mood disturbance, and anxiety; I25.10 Atherosclerotic heart disease of native coronary artery without angina pectoris; K21.9 Gastro-esophageal reflux disease without esophagitis; M19.90 Unspecified osteoarthritis, unspecified site; H91.90 Unspecified hearing loss, unspecified ear; E03.9 Hypothyroidism, unspecified; F32.9 Major depressive disorder, single episode, unspecified; H54.61 Unqualified visual loss, right eye, normal vision left eye; I48.2 Chronic atrial fibrillation; E78.2 Mixed hyperlipidemia; R41.0 Disorientation, unspecified; T40.2X5A Adverse effect of other opioids, initial encounter; T43.595A Adverse effect of other antipsychotics and neuroleptics, initial encounter; Z86.73 Personal history of transient ischemic attack (TIA), and cerebral infarction without residual deficits; Z86.718 Personal history of other venous thrombosis and embolism; Z87.891 Personal history of nicotine dependence; Z85.038 Personal history of other malignant neoplasm of large intestine; Z85.118 Personal history of other malignant neoplasm of bronchus and lung; Z79.01 Long term (current) use of anticoagulants; Z79.899 Other long term (current) drug therapy; Z90.710 Acquired absence of both cervix and uterus; Z90.2 Acquired absence of lung [part of]
CPT/HCPCS: 36415; 36600; 71045; 74177; 74250; 81001; 82040; 82150; 82247; 82310; 82374; 82435; 82565; 82803; 82947; 83605; 83690; 84075; 84132; 84155; 84295; 84450; 84460; 84520; 85025; 85610; 85730; 86140; 86850; 86870; 86900; 86901; 86902; 86922; 87088; 87186; 93005; 94660; 96361; 96374; 96375; 99285; C9113; J0131; J1170; J2270; J2405; J7030; J7050; Q9967

== ENCOUNTER → 2017-07-16 | Outpatient (CLI) | payer MEDICARE, BC, MEDICAID ==
[2017-07-11 10:53] VITALS: BMI 31.0
[~2017-07-16] MED LIST changes: +IOPAMIDOL 76% 75 ML INFUS BTL 75 ML ONE; +NS 0.9% 20 ML SDV 20 ML ONE; +ZEAX100P
--- NOTE | 2017-07-16 10:12 | RADIOLOGY IMAGING REPORT ---
FACILITY: [facility] PATIENT NAME: Breanna Schwab : 1935 MR: [id number] V: [id number] EXAM DATE: ORDERING PHYSICIAN: JEAN PITTMAN TECHNOLOGIST: Location: [facility] Patient: Breanna Schwab : 1935 Visit/Account:[id number] Date of Sevice: 07/16/2017 EXAMINATION: CT Chest With Contrast CT Abdomen With Contrast CT Pelvis With Contrast 07/16/2017 5:35 AM HISTORY: Lung and colon cancer TECHNIQUE: Spiral scan was obtained through the chest, abdomen and pelvis during injection of nonio dawson iodinated intravenous contrast. Contrast: 75 mL of IV Isovue 370. One of the following dose optimization techniques was utilized in the performance of this exam: Autom ated exposure control; adjustment of the mA and/or kV according to the patient's size; or use of an i terative reconstruction technique. Specific details can be referenced in the facility's radiology C T exam operational policy. COMPARISON STUDIES: Chest x-ray 07/11/2017. CT abdomen and pelvis 07/11/2017. CT chest, abdomen, and pelvis 08/14/2016. FINDINGS: CHEST: Lungs / pleura: Groundglass density in the right upper lobe is similar to the comparison. Increasing pleural-parenchymal markings in the medial right apex may reflect progressive posttreatment change. Mosaic density in the lungs again shown suggesting a component of small airways disease. Previous l eft lobectomy. Essentially stable loculated hydropneumothorax in the left base. Mediastinum / cordell: negative Heart / pericardium: Pericardial fluid mostly within superior pericardial recesses. Vessels: Atherosclerosis includes coronary disease. Musculoskeletal / Body wall: Postsurgical changes in left ribs with partial resection of the ninth ri b. Spurring in the spine. Lymph node assessment: No significant change in small nonspecific mediastinal lymph nodes. No pathol ogic adenopathy evident. Lower neck: negative ABDOMEN AND PELVIS: Liver / biliary: No focal liver lesion. No acute biliary finding. Pancreas: Hypodensities in the pancreatic tail are stable. Spleen: Stable small cyst in the superior medial aspect of the spleen. Adrenal glands: Stable mild thickening of the adrenals more on the right. No clear metastatic focus. Kidneys / retroperitoneum: Benign-appearing renal cortical cysts. Pelvic structures: Prior hysterectomy. Bowel / peritoneum / mesenteries: Small bowel sutures in the right lower quadrant with essentially st able patulous small bowel associated with sutures. Proximal small bowel is not distended. Status po st distal colon resection and reanastomosis. No locally recurrent mass. Vessels: Atherosclerosis. Musculoskeletal / Body wall: Degenerative changes in the spine with severe stenosis at L4-5. Osteoar thritis of the hips more severely on the right. Stable bone island in the anterior L4 vertebral body and medial to the right acetabulum. Right ventral abdominal wall scarring from prior ileostomy site . Fatty inguinal hernias. Lymph node assessment: negative IMPRESSION: 1. Posttreatment changes in the left hemithorax are stable. 2. Essentially stable groundglass focus in the right upper lobe may be postinflammatory. Increasing pleural-parenchymal density in the medial right apex is possibly posttreatment change. There is a n ew small right effusion. 2. Postsurgical changes in the abdomen and right lower quadrant small bowel as well as the distal co jarrell. No recurrent or metastatic malignancy demonstrated in the abdomen or pelvis. Small bowel obstr uction shown previously has resolved. 3. Stable hypodensities in the pancreatic tail. Report Dictated By: Dragan Crespo MD at 07/16/2017 9:49 AM Report E-Signed By: Dragan Crespo MD at 07/16/2017 10:08 AM WSN:[email or web address]
== END ==
LOC: CT 00:21
PROVIDERS: ATTEND Surgery
DX: R91.8 Other nonspecific abnormal finding of lung field (principal); I25.10 Atherosclerotic heart disease of native coronary artery without angina pectoris; D73.4 Cyst of spleen; N28.1 Cyst of kidney, acquired; Z90.710 Acquired absence of both cervix and uterus
CPT/HCPCS: 71260; 74177; J7050; Q9967

== ENCOUNTER → 2017-07-17 | Outpatient (REF) | payer MEDICARE, BC, MEDICAID ==
[2017-07-11 10:53] VITALS: BMI 31.0
[~2017-07-17] MED LIST changes: -IOPAMIDOL 76% 75 ML INFUS BTL 75 ML ONE; -NS 0.9% 20 ML SDV 20 ML ONE
== END ==
LOC: ZZSPRING 12:17
PROVIDERS: ATTEND Nurse Practitioner Family
DX: R30.0 Dysuria (principal); R35.0 Frequency of micturition; B96.29 Other Escherichia coli [E. coli] as the cause of diseases classified elsewhere
CPT/HCPCS: 81001; 87077; 87088; 87186

== ENCOUNTER → 2017-07-20 | Outpatient (CLI) | payer MEDICARE, BC, MEDICAID ==
[2017-07-11 10:53] VITALS: BMI 31.0
[~2017-07-20] MED LIST changes: -WARF-18 PO; +WARF5TAB23 PO
== END ==
LOC: ZZSPRING 01:42
PROVIDERS: ATTEND Surgery
DX: I48.2 Chronic atrial fibrillation (principal); I50.9 Heart failure, unspecified; I10 Essential (primary) hypertension; B19.10 Unspecified viral hepatitis B without hepatic coma; Z85.118 Personal history of other malignant neoplasm of bronchus and lung; Z85.038 Personal history of other malignant neoplasm of large intestine
CPT/HCPCS: 36415; 82040; 82247; 82248; 82310; 82374; 82378; 82435; 82565; 82947; 84075; 84132; 84155; 84295; 84450; 84460; 84520; 85027

== ENCOUNTER → 2017-07-21 | Outpatient (CLI) | payer MEDICARE, BC, MEDICAID ==
[2017-07-11 10:53] VITALS: BMI 31.0
[2017-07-21 11:52] LABS: INR 2.7
== END ==
LOC: LAB 11:27
PROVIDERS: ATTEND Nurse Practitioner Family
DX: Z51.81 Encounter for therapeutic drug level monitoring (principal); Z79.01 Long term (current) use of anticoagulants
CPT/HCPCS: 36415; 85610

== ENCOUNTER → 2017-07-23 | Outpatient (REF) | payer MEDICARE, BC, MEDICAID ==
[2017-07-11 10:53] VITALS: BMI 31.0
== END ==
LOC: ZZSENDIN 16:08
PROVIDERS: ATTEND Nurse Practitioner Family
DX: N39.0 Urinary tract infection, site not specified (principal); R82.99 Other abnormal findings in urine
CPT/HCPCS: 81001; 87088

== ENCOUNTER → 2017-07-27 | Outpatient (CLI) | payer MEDICARE, BC, MEDICAID ==
[2017-07-11 10:53] VITALS: BMI 31.0
[2017-07-27 08:47] LABS: INR 1.58
== END ==
LOC: ZZSPRING 02:59
PROVIDERS: ATTEND Nurse Practitioner Family
DX: Z51.81 Encounter for therapeutic drug level monitoring (principal); Z79.01 Long term (current) use of anticoagulants
CPT/HCPCS: 36415; 85610

== ENCOUNTER → 2017-08-03 | Outpatient (CLI) | payer MEDICARE, BC, MEDICAID ==
[2017-07-11 10:53] VITALS: BMI 31.0
[2017-08-03 08:36] LABS: INR 1.09
== END ==
LOC: ZZSPRING 01:47
PROVIDERS: ATTEND Nurse Practitioner Family
DX: Z51.81 Encounter for therapeutic drug level monitoring (principal); Z79.01 Long term (current) use of anticoagulants
CPT/HCPCS: 36415; 85610

== ENCOUNTER → 2017-08-06 | Outpatient (CLI) | payer MEDICARE, BC, MEDICAID ==
[2017-07-11 10:53] VITALS: BMI 31.0
[~2017-08-06] MED LIST changes: +GUAI600T57 PO; +PEG4000S14 PO
--- NOTE | 2017-08-06 13:59 | EKG ---
FACILITY: [facility] PATIENT NAME: GINA ZUNIGA : [id number] MR: [id number] V: [id number] EXAM DATE: ORDERING PHYSICIAN: JEAN PITTMAN TECHNOLOGIST: KRISTIE Test Reason : SURGERY CLEARANCE Blood Pressure : / mmHG Vent. Rate : 085 BPM Atrial Rate : 085 BPM P-R Int : 156 ms QRS Dur : 078 ms QT Int : 402 ms P-R-T Axes : 082 038 -03 degrees QTc Int : 478 ms Normal sinus rhythm Nonspecific T wave abnormality Prolonged QT Abnormal ECG When compared with ECG of 11-JUL-2017 07:48, premature ventricular complexes are no longer present Referred By: TOYA Confirmed By:
== END ==
LOC: RESP 11:54
PROVIDERS: ATTEND Surgery
DX: Z02.9 Encounter for administrative examinations, unspecified (principal)

== ENCOUNTER → 2017-08-10 | Outpatient (CLI) | payer MEDICARE, BC, MEDICAID ==
[2017-07-11 10:53] VITALS: BMI 31.0
[2017-08-10 09:02] LABS: INR 2.81
== END ==
LOC: ZZSPRING 00:39
PROVIDERS: ATTEND Nurse Practitioner Family
DX: D64.9 Anemia, unspecified (principal); I10 Essential (primary) hypertension; E03.9 Hypothyroidism, unspecified
CPT/HCPCS: 36415; 82040; 82247; 82310; 82374; 82435; 82565; 82947; 84075; 84132; 84155; 84295; 84443; 84450; 84460; 84520; 85027; 85610

== ENCOUNTER → 2017-08-10 | Outpatient (CLI) | payer MEDICARE, BC, MEDICAID ==
[2017-07-11 10:53] VITALS: BMI 31.0
== END ==
LOC: ZZSPRING 00:37
PROVIDERS: ATTEND Nurse Practitioner Family
DX: Z86.718 Personal history of other venous thrombosis and embolism (principal); Z79.899 Other long term (current) drug therapy

== ENCOUNTER 2017-08-15 12:20 | Observation (INO) | payer MEDICARE, BC, MEDICAID ==
[2017-08-15] VITALS (8 sets, daily range): BP systolic 105–125; BP diastolic 56–78
[~2017-08-15] VITALS: Ht 152.4 cm; Wt 68.1 kg
--- NOTE | 2017-08-15 12:44 | ER Report ---
History and Physical Time Seen By MD: 12:44 Hx. of Stated Complaint: PT HAS RECTAL BLEEDING FOR A FEW DAYS, IT IS WORSE TODAY, WITH 1/4 CUP BLOOD WITH HER DEPENDS CHANGE. PT ON COUMADIN FOR CLOTS. SBO 1 MONTH AGO HPI/ROS CHIEF COMPLAINT: Rectal bleeding HISTORY OF PRESENT ILLNESS: 81-year-old female patient presents to emergency room with complaint of rectal bleeding. Patient states that this is been going on since yesterday. She states that they seem to be worse. She states that she had large amounts of blood in her depends. She states she was changed 3 times and each time she was changed there was a "quarter cup of blood" in each dependent. Patient states that she has not had any nausea or vomiting. Patient states she has no abdominal pain. She states she is not taking any medication for this. Patient states she does have a colonoscopy scheduled for of this week. REVIEW OF SYSTEMS: Respiratory: No cough, no dyspnea. Cardiovascular: No chest pain, no palpitations. Gastrointestinal: As noted above. Musculoskeletal: No back pain. Allergies: Coded Allergies: No Known Drug Allergies (Unverified , 08/15/17) Home Meds Active Scripts Guaifenesin (MUCINEX) 600 Mg Tablet.er, 1 TAB PO BID for 7 Days, #14 TAB 0 Refills Prov:VELIA MCMANUS APRNP-C 08/09/17 Simethicone (SIMETHICONE) 125 Mg Tab.chew, 1 TAB PO TIDPC Y for GAS, #90 TAB.CHEW 5 Refills Please offer after meals pt may not remember to ask but does not need to take if not having problems with gas Prov:VELIA MCMANUS APRN BI CONSULTANT-C 08/09/17 Levothyroxine Sodium (SYNTHROID) 25 Mcg Tablet, 1 TAB PO QDAY, #90 TAB 1 Refill Prov:VELIA MCMANUS APRNP-C 07/30/17 Cholecalciferol (Vitamin D3) (VITAMIN D3) 2,000 Unit Capsule, 1 CAP PO DAILY, # 90 CAP 3 Refills Prov:VELIA MCMANUS APRN BI CONSULTANT-C 07/30/17 Warfarin Sodium (WARFARIN SODIUM) 5 Mg Tablet, 0.5-1 TAB PO DAILY, #90 TAB 3 Refills Take one 5 mg tab on , wed, , sat, and sun Take half tab (2.5 mg) on Wed and Wednesday Prov:VELIA MCMANUS APRN-C 07/15/17 Gabapentin (GABAPENTIN) 100 Mg Capsule, 2 TAB PO TID, #180 CAPSULE 5 Refills Prov:VELIA MCMANUS APRN-C 06/11/17 Omeprazole (OMEPRAZOLE) 20 Mg Capsule.dr, 1 CAP PO QDAY, #90 CAP 3 Refills Prov:VELIA MCMANUS APRN-C 04/07/17 Folic Acid (FOLIC ACID) 1 Mg Tablet, 1 MG PO QDAY, #90 TAB 1 Refill Prov:VELIA MCMANUS APRN 03/11/17 Atorvastatin Calcium (ATORVASTATIN CALCIUM) 10 Mg Tablet, 1 TAB PO QHS, #90 TAB 3 Refills Prov:VELIA MCMANUS APRN-C 03/11/17 Acetaminophen (ACETAMINOPHEN) 500 Mg Tablet, 1 TAB PO TID, #270 TAB Prov:VELIA MCMANUS APRN-C 11/06/16 Multivitamin (MULTIVITAMINS) 1 Each Tablet, 1 TAB PO DAILY, #30 TAB 11 Refills Prov:LORENE GAO MD 08/03/16 Vitamin B Complex (VITAMIN B COMPLEX) 1 Each Capsule, 1 EACH PO BID, #180 CAPSULE 1 Refill Prov:VELIA MCMANUS APRN-C 07/15/16 Discontinued Reported Medications Zeaxanthin (ZEAXANTHIN) 100 Gm Powder 07/11/17 Discontinued Scripts Peg 3350/Na Sulf,Bicarb,Cl/Kcl (PEG-3350 AND ELECTROLYTES SOLN) 4,000 Ml Soln.recon, 1 GAL PO ONCE, #1 GAL 0 Refills Prov:JEAN PITTMAN MD 08/06/17 Duloxetine Hcl (CYMBALTA) 60 Mg Capsule.dr, 1 CAP PO DAILY, #90 CAP 1 Refill Prov:VELIA MCMANUS APRN-C 07/15/17 Quetiapine Fumarate (SEROQUEL) 25 Mg Tablet, 0.5-1 TAB PO BID, #453 TAB 1 Refill 0.5 tab po QAM and 1 tab po QHS Prov:VELIA MCMANUS APRN-C 06/21/17 Glycerin/Propylene Glycol (ARTIFICIAL TEARS DROPS) 30 Ml Drops, 2 GTT OU QID, # 30 ML 5 Refills Prov:VELIA MCMANUS APRN BI CONSULTANT-C 01/18/17 Past Medical/Surgical History Patient has a past medical history of TIA, AR, irregular heartbeat, DVT, hepatitis, reflux, arthritis, fractures, legally blind, hypothyroidism, depression, cancer, lung cancer. Patient has surgical history of hysterectomy, colostomy, colostomy reversal. Reviewed Nurses Notes: Yes Hx Smoking: Yes Smoking Status: Former Smoker Hx Substance Use Disorder: No Hx Alcohol Use: No Constitutional Vital Sign - Last 24 Hours 08/15/17 08/15/17 08/15/17 08/15/17 12:29 12:30 12:34 12:50 Temp 97.6 Pulse 95 84 Resp 20 B/P (MAP) 142/81 142/81 (101) Pulse Ox 80 98 O2 Delivery Room Air O2 Flow Rate 2.0 08/15/17 08/15/17 08/15/17 08/15/17 13:00 13:20 13:30 13:35 Pulse 82 81 B/P (MAP) 117/70 (86) 127/79 (95) Pulse Ox 98 97 08/15/17 08/15/17 08/15/17 08/15/17 14:05 14:30 14:35 14:40 Pulse 83 83 82 B/P (MAP) 124/69 (87) Pulse Ox 97 96 95 08/15/17 08/15/17 15:00 15:10 Pulse 78 B/P (MAP) 121/86 (98) Pulse Ox 99 Intake and Output 08/15/17 08/15/17 08/16/17 15:00 23:00 07:00 Intake Total 100 ml Output Total 15 ml Balance 85 ml Physical Exam General Appearance: The patient is alert, has no immediate need for airway protection and no current signs of toxicity. ENT: Tympanic membranes are pearly-purdy, auditory canals are patent, mucous membranes are moist. Respiratory: Chest is non tender, lungs are wheezy to auscultation. Cardiac: regular rate and rhythm Gastrointestinal: Abdomen is soft and non tender, no masses, bowel sounds normal. Musculoskeletal: Neck: Neck is supple and non tender. Extremities have full range of motion and are non tender. Skin: No rashes or lesions. DIFFERENTIAL DIAGNOSIS: After history and physical exam differential diagnosis was considered for lower GI bleed, anemia, upper respiratory infection, sinusitis, pneumonia. Medical Decision Making Data Points Result Diagram: 08/15/17 1315 08/15/17 1315 Laboratory Hematology Test 08/15/17 00:00 08/15/17 13:15 Urine Color Yellow Urine Clarity Clear Urine pH 5.0 pH (4.8-9.5) Urine Specific Maurice 1.019 Urine Protein Negative mg/dL (NEGATIVE) Urine Glucose (UA) Negative mg/dL (NEGATIVE) Urine Ketones Negative mg/dL (NEGATIVE) Urine Blood Negative (NEGATIVE) Urine Nitrite Negative (NEGATIVE) Urine Bilirubin Negative (NEGATIVE) Urine Urobilinogen Negative mg/dL (0.2-1.9) Urine Leukocyte Esterase Negative (NEGATIVE) Urine RBC None /HPF (0-2/HPF) Urine WBC <1 /HPF (0-5/HPF) Urine Squamous Epithelial Cells Few /LPF (NONE-FEW) Urine Bacteria Negative /HPF (NONE-FEW) Urine Mucus None /HPF (NONE-FEW) Red Blood Count 4.89 M/uL (4.17-5.56) Mean Corpuscular Volume 74.4 fL (80.0-96.0) Mean Corpuscular Hemoglobin 23.7 pg (26.0-33.0) Mean Corpuscular Hemoglobin Concent 31.8 g/dL (32.0-36.0) Red Cell Distribution Width 20.4 % (11.5-14.5) Mean Platelet Volume 7.3 fL (7.2-11.1) Neutrophils (%) (Auto) 63.6 % (39.4-72.5) Lymphocytes (%) (Auto) 20.6 % (17.6-49.6) Monocytes (%) (Auto) 11.9 % (4.1-12.4) Eosinophils (%) (Auto) 3.6 % (0.4-6.7) Basophils (%) (Auto) 0.3 % (0.3-1.4) Nucleated RBC Relative Count (auto) 0.0 /100WBC Neutrophils # (Auto) 4.0 K/uL (2.0-7.4) Lymphocytes # (Auto) 1.3 K/uL (1.3-3.6) Monocytes # (Auto) 0.8 K/uL (0.3-1.0) Eosinophils # (Auto) 0.2 K/uL (0.0-0.5) Basophils # (Auto) 0.0 K/uL (0.0-0.1) Nucleated RBC Absolute Count (auto) 0.00 K/uL Prothrombin Time 33.5 seconds (12.0-14.4) Prothromb Time International Ratio 3.15 Sodium Level 139 mmol/L (137-145) Potassium Level 4.6 mmol/L (3.5-5.0) Chloride Level 100 mmol/L (98-107) Carbon Dioxide Level 25 mmol/L (22-31) Blood Urea Nitrogen 19 mg/dl (7-18) Creatinine 1.30 mg/dl (0.52-1.04) Glomerular Filtration Rate Calc 39.3 Random Glucose 100 mg/dl (75-110) Calcium Level 8.7 mg/dl (8.4-10.2) Total Bilirubin 0.4 mg/dl (0.2-1.3) Aspartate Amino Transf (AST/SGOT) 30 U/L (0-35) Alanine Aminotransferase (ALT/SGPT) 33 U/L (0-56) Alkaline Phosphatase 100 U/L (0-126) Total Protein 6.6 gm/dl (6.3-8.2) Albumin 3.9 g/dl (3.5-5.0) Chemistry Test 08/15/17 00:00 08/15/17 13:15 Urine Color Yellow Urine Clarity Clear Urine pH 5.0 pH (4.8-9.5) Urine Specific Maurice 1.019 Urine Protein Negative mg/dL (NEGATIVE) Urine Glucose (UA) Negative mg/dL (NEGATIVE) Urine Ketones Negative mg/dL (NEGATIVE) Urine Blood Negative (NEGATIVE) Urine Nitrite Negative (NEGATIVE) Urine Bilirubin Negative (NEGATIVE) Urine Urobilinogen Negative mg/dL (0.2-1.9) Urine Leukocyte Esterase Negative (NEGATIVE) Urine RBC None /HPF (0-2/HPF) Urine WBC <1 /HPF (0-5/HPF) Urine Squamous Epithelial Cells Few /LPF (NONE-FEW) Urine Bacteria Negative /HPF (NONE-FEW) Urine Mucus None /HPF (NONE-FEW) White Blood Count 6.4 k/uL (4.5-11.0) Red Blood Count 4.89 M/uL (4.17-5.56) Hemoglobin 11.6 g/dL (12.0-16.0) Hematocrit 36.4 % (34.0-47.0) Mean Corpuscular Volume 74.4 fL (80.0-96.0) Mean Corpuscular Hemoglobin 23.7 pg (26.0-33.0) Mean Corpuscular Hemoglobin Concent 31.8 g/dL (32.0-36.0) Red Cell Distribution Width 20.4 % (11.5-14.5) Platelet Count 274 K/uL (150-450) Mean Platelet Volume 7.3 fL (7.2-11.1) Neutrophils (%) (Auto) 63.6 % (39.4-72.5) Lymphocytes (%) (Auto) 20.6 % (17.6-49.6) Monocytes (%) (Auto) 11.9 % (4.1-12.4) Eosinophils (%) (Auto) 3.6 % (0.4-6.7) Basophils (%) (Auto) 0.3 % (0.3-1.4) Nucleated RBC Relative Count (auto) 0.0 /100WBC Neutrophils # (Auto) 4.0 K/uL (2.0-7.4) Lymphocytes # (Auto) 1.3 K/uL (1.3-3.6) Monocytes # (Auto) 0.8 K/uL (0.3-1.0) Eosinophils # (Auto) 0.2 K/uL (0.0-0.5) Basophils # (Auto) 0.0 K/uL (0.0-0.1) Nucleated RBC Absolute Count (auto) 0.00 K/uL Prothrombin Time 33.5 seconds (12.0-14.4) Prothromb Time International Ratio 3.15 Glomerular Filtration Rate Calc 39.3 Calcium Level 8.7 mg/dl (8.4-10.2) Total Bilirubin 0.4 mg/dl (0.2-1.3) Aspartate Amino Transf (AST/SGOT) 30 U/L (0-35) Alanine Aminotransferase (ALT/SGPT) 33 U/L (0-56) Alkaline Phosphatase 100 U/L (0-126) Total Protein 6.6 gm/dl (6.3-8.2) Albumin 3.9 g/dl (3.5-5.0) Coagulation Test 08/15/17 13:15 Prothrombin Time 33.5 seconds Prothromb Time International Ratio 3.15 Urinalysis Test 08/15/17 00:00 Urine Color Yellow Urine Clarity Clear Urine pH 5.0 pH (4.8-9.5) Urine Specific Maurice 1.019 Urine Protein Negative mg/dL (NEGATIVE) Urine Glucose (UA) Negative mg/dL (NEGATIVE) Urine Ketones Negative mg/dL (NEGATIVE) Urine Blood Negative (NEGATIVE) Urine Nitrite Negative (NEGATIVE) Urine Bilirubin Negative (NEGATIVE) Urine Urobilinogen Negative mg/dL (0.2-1.9) Urine Leukocyte Esterase Negative (NEGATIVE) Urine RBC None /HPF (0-2/HPF) Urine WBC <1 /HPF (0-5/HPF) Urine Squamous Epithelial Cells Few /LPF (NONE-FEW) Urine Bacteria Negative /HPF (NONE-FEW) Urine Mucus None /HPF (NONE-FEW) EKG/Imaging Imaging EXAMINATION: PA and Lateral Chest 08/15/2017 12:52 PM HISTORY: cough, wheezing COMPARISON: 07/11/2017. CT 07/16/2017 FINDINGS: Cardiomediastinal contours: Stable heart size. Atherosclerotic aorta. Lungs and pleura: Stable generalized markings. Stable scarring in the left base with lateral pleural thickening. Potential new infrahilar opacity in the right base. Density over the spine on lateral is stable comparing back to 09/12/2015 and presumptively related to the left basilar scarring. Bones/soft tissues: Normal IMPRESSION: Right basilar opacity could be infiltrate or simply atelectasis. Report Dictated By: Dragan Crespo MD at 08/15/2017 2:20 PM Report E-Signed By: Dragan Crespo MD at 08/15/2017 2:24 PM ED Course/Re-evaluation ED Course Patient was admitted to exam room, history and physical were obtained. Differential diagnoses were considered. On examination patient did have joss blood when doing the rectal exam. She had scant amount of blood on her depends. A CBC, CMP, chest x-ray were done. Chest x-ray showed no acute cardiopulmonary processes, CBC showed that her H&H had gone from 11.7 and 36.4 to 11.6 and 34. CMP showed that she had a slightly elevated creatinine of 1.3. Due to the joss blood on the rectal exam I did discuss the case with Dr. Pittman, general surgeon. I explained that my concern was the joss bleeding. He asked me what the INR was. I filled borderline at that time, and INR was ordered and I did call Dr. Pittman back when the results were available. The INR was 3.15. Agree to accept the patient for admission. I discussed this with the patient and her family and they verbalized understanding and agreement with plan. Decision to Disposition Date: Aug 15, 2017 Decision to Disposition Time: 15:11 Depart Departure Latest Vital Signs Vital Signs Date Time Temp Pulse Resp B/P (MAP) Pulse Ox O2 Delivery O2 Flow Rate FiO2 08/15/17 15:10 78 99 08/15/17 15:00 121/86 (98) 08/15/17 12:34 2.0 08/15/17 12:29 97.6 20 Room Air Impression: Primary Impression: GI bleed Condition: Condition Unchanged Disposition: Admitted from ER Referrals: VELIA MCMANUS APRN BI CONSULTANT-C (PCP) Problem Qualifiers Primary Impression: GI bleed GI bleed type/associated pathology: unspecified gastrointestinal hemorrhage type Qualified Codes: K92.2 - Gastrointestinal hemorrhage, unspecified AKILA AGOSTO BI CONSULTANT Aug 15, 2017 12:44
[2017-08-15] MEDS ORDERED: PANTOPRAZOLE SOD(*)40 MG VIAL 80 MG in NS(*) 0.9% 100 ML BAG 100 ML IVPB ONE (12:55)
[2017-08-15] MEDS ORDERED: NS(*) 0.9% 500 ML BAG 500 ML IV ONE (12:55)
[2017-08-15 13:22] LABS: PLATELET COUNT, AUTOMATED 274 K/uL (150-450)
--- NOTE | 2017-08-15 14:27 | RADIOLOGY IMAGING REPORT ---
FACILITY: [facility] [place] PATIENT NAME: Breanna Schwab : 1935 MR: [id number] V: [id number] EXAM DATE: ORDERING PHYSICIAN: AKILA AGOSTO TECHNOLOGIST: Location: [facility] [place] Patient: Breanna Schwab : 1935 Visit/Account:[id number] Date of Sevice: 08/15/2017 EXAMINATION: PA and Lateral Chest 08/15/2017 12:52 PM HISTORY: cough, wheezing COMPARISON: 07/11/2017. CT 07/16/2017 FINDINGS: Cardiomediastinal contours: Stable heart size. Atherosclerotic aorta. Lungs and pleura: Stable generalized markings. Stable scarring in the left base with lateral pleural thickening. Potential new infrahilar opacity in the right base. Density over the spine on lateral is stable saleem ring back to 09/12/2015 and presumptively related to the left basilar scarring. Bones/soft tissues: Normal IMPRESSION: Right basilar opacity could be infiltrate or simply atelectasis. Report Dictated By: Dragan Crespo MD at 08/15/2017 2:20 PM Report E-Signed By: Dragan Crespo MD at 08/15/2017 2:24 PM WSN:[id number]
[2017-08-15 14:55] LABS: INR 3.15
[2017-08-15] MEDS ORDERED: ACETAMINOPHEN 500 MG TAB PO PRN (15:25)
[2017-08-15] MEDS ORDERED: SIMETHICONE 80 MG CHEW PO PRN (15:25)
[2017-08-15] MEDS ORDERED: FLUSH 10 ML SYR IVP PRN (15:25)
--- NOTE | 2017-08-15 15:47 | Gen Surgery History & Physical ---
History of Present Illness Chief Complaint BRBPR History of Present Illness 81yo female, well known to me, is brought in to the ER with multiple episodes of BRBPR today. She's reported small amounts of BRBPR for months or longer and I actually have her scheduled for a colonoscopy (in addition to a mass, probable lipoma, excision from her right upper chest) this week. No abdominal pain, no lightheadedness or dizziness. Her H/H seems to be stable. She is on chronic coumadin due to h/o a-fib and blood clots. Her INR is over 3 today. She has a h/o sigmoid colon cancer resected over 2 years ago but she hasn't had any surveillance colonoscopies since the resection. Her CEA is mildly elevated at 4.9. History Problems: (1) Depression Status: Chronic (2) Hypercoagulable state Status: Chronic (3) History of lung cancer Status: Chronic (4) Mass of subcutaneous tissue Status: Chronic (5) History of colon cancer Status: Chronic (6) Macular degeneration Status: Chronic (7) Hepatitis B Status: Chronic (8) Essential hypertension Status: Chronic (9) GERD (gastroesophageal reflux disease) Status: Chronic (10) Thyroid nodule Status: Chronic (11) Osteoporosis Onset Date: 06/13/2014 Status: Chronic (12) Hx of peptic ulcer Onset Date: 09/17/2014 Status: Chronic (13) History of DC (myocardial infarction) Status: Chronic (14) History of DVT (deep vein thrombosis) Status: Chronic (15) Hypothyroid Status: Chronic (16) CHRONIC ATRIAL FIBRILLATION Status: Chronic (17) Mixed hyperlipidemia Status: Chronic (18) History of appendectomy (19) History of hysterectomy (20) History of tonsillectomy (21) S/P partial lobectomy of lung Status: Chronic (22) S/P partial colectomy Status: Chronic (23) FH: stroke (24) Family history of hypertension (25) Family history of GERD Home Meds Active Scripts Guaifenesin (MUCINEX) 600 Mg Tablet.er, 1 TAB PO BID for 7 Days, #14 TAB 0 Refills Prov:VELIA MCMANUS APRN [employer] DIPPER-C 08/09/17 Simethicone (SIMETHICONE) 125 Mg Tab.chew, 1 TAB PO TIDPC Y for GAS, #90 TAB.CHEW 5 Refills Please offer after meals pt may not remember to ask but does not need to take if not having problems with gas Prov:VELIA MCMANUS APRNP-C 08/09/17 Levothyroxine Sodium (SYNTHROID) 25 Mcg Tablet, 1 TAB PO QDAY, #90 TAB 1 Refill Prov:VELIA MCMANUS APRNP-C 07/30/17 Cholecalciferol (Vitamin D3) (VITAMIN D3) 2,000 Unit Capsule, 1 CAP PO DAILY, # 90 CAP 3 Refills Prov:VELIA MCMANUS APRNP-C 07/30/17 Warfarin Sodium (WARFARIN SODIUM) 5 Mg Tablet, 0.5-1 TAB PO DAILY, #90 TAB 3 Refills Take one 5 mg tab on , wed, , wed, and sun Take half tab (2.5 mg) on Wed and Wednesday Prov:VELIA MCMANUS APRNP-C 07/15/17 Gabapentin (GABAPENTIN) 100 Mg Capsule, 2 TAB PO TID, #180 CAPSULE 5 Refills Prov:VELIA MCMANUS APRNP-C 06/11/17 Omeprazole (OMEPRAZOLE) 20 Mg Capsule., 1 CAP PO QDAY, #90 CAP 3 Refills Prov:VELIA MCMANUS APRNP-C 04/07/17 Folic Acid (FOLIC ACID) 1 Mg Tablet, 1 MG PO QDAY, #90 TAB 1 Refill Prov:VELIA MCMANUS APRNP-C 03/11/17 Atorvastatin Calcium (ATORVASTATIN CALCIUM) 10 Mg Tablet, 1 TAB PO QHS, #90 TAB 3 Refills Prov:VELIA MCMANUS APRNP-C 03/11/17 Acetaminophen (ACETAMINOPHEN) 500 Mg Tablet, 1 TAB PO TID, #270 TAB Prov:VELIA MCMANUS APRNP-C 11/06/16 Multivitamin (MULTIVITAMINS) 1 Each Tablet, 1 TAB PO DAILY, #30 TAB 11 Refills Prov:LORENE GAO MD 08/03/16 Vitamin B Complex (VITAMIN B COMPLEX) 1 Each Capsule, 1 EACH PO BID, #180 CAPSULE 1 Refill Prov:VELIA MCMANUS APRN-C 2/8/17 Discontinued Reported Medications Zeaxanthin (ZEAXANTHIN) 100 Gm Powder 07/11/17 Discontinued Scripts Peg 3350/Na Sulf,Bicarb,Cl/Kcl (PEG-3350 AND ELECTROLYTES SOLN) 4,000 Ml Soln.recon, 1 GAL PO ONCE, #1 GAL 0 Refills Prov:JEAN PITTMAN MD 08/06/17 Duloxetine Hcl (CYMBALTA) 60 Mg Capsule.dr, 1 CAP PO DAILY, #90 CAP 1 Refill Prov:VELIA MCMANUS APRN-Debo 07/15/17 Quetiapine Fumarate (SEROQUEL) 25 Mg Tablet, 0.5-1 TAB PO BID, #453 TAB 1 Refill 0.5 tab po QAM and 1 tab po QHS Prov:VELIA MCMANUS APRN-Debo 06/21/17 Glycerin/Propylene Glycol (ARTIFICIAL TEARS DROPS) 30 Ml Drops, 2 GTT OU QID, # 30 ML 5 Refills Prov:VELIA MCMANUS APRN-Debo 01/18/17 Allergies: Coded Allergies: No Known Drug Allergies (Unverified , 08/15/17) Patient History: Aneurysm FATHER, , Age:50's - 60 FH: breast cancer BROTHER OR SISTER FH: stroke FH: stroke FH: stroke FH: stroke FHx: colon cancer BROTHER OR SISTER, , Age:60 years and older GERD GERD Hypertension Hypertension MS (multiple sclerosis) BROTHER OR SISTER, , Age:41 Review of Systems All Systems Reviewed/Normal: Yes, Except as Noted Gastrointestinal: Hematochezia Exam General Appearance: Alert, Awake, No Acute Distress, Afebrile Neuro: No Gross deficits Eyes: PERRLA GI: Abd Soft and Non-Tender Extremities: Warm, Perfused Medical Decision Making Data Points Result Diagram: 08/15/17 1315 08/15/17 1315 Assessment and Plan Problems: (1) GI bleed Status: Acute Assessment & Plan: 08/15/17: Admit, FFP, vitamin K to normalize her INR. Will follow the bleeding. If her bleeding stops as her coagulation returns to normal , will d/c to home with plans for colonoscopy and mass excision this week. If bleeding persists, H/H drops significantly, or she becomes unstable then will need to scope her more urgently. Condition Stable Time Spent: < 30 min Venous Thromboembolism VTE Risk Physician Assess for VTE Risk: Yes Patient's VTE Risk: Low VTE Diagnostic Test 2 Days Prior to Admit: No Antithrombotics Is Pt On Any Antithrombotics?: Yes Prophylaxis Tx Contraindicated Pharmacological Contraindicati: Active Bleeding Problem Qualifiers (1) GI bleed: GI bleed type/associated pathology: anorectal hemorrhage Qualified Codes: K62.5 - Hemorrhage of anus and rectum JEAN PITTMAN MD Aug 15, 2017 15:47
[2017-08-15] MEDS ORDERED: PHYTONADIONE 10 MG/ML AMP SC ONE (16:00)
[2017-08-15] MEDS ORDERED: NS(*) 0.9% 250 ML BAG 250 ML ONE ×2 (16:13→19:42)
[2017-08-15] MEDS ORDERED: NS(*) 0.9% 500 ML BAG 500 ML ONE (16:31)
[2017-08-15] MEDS: guaiFENesin 600 MG TABCR PO SCH (20:17)
[2017-08-15] MEDS: GABAPENTIN 100 MG CAP PO SCH (20:17)
[2017-08-15] MEDS: FOLIC ACID/CYANOCOB/PYRIDOXINE PO SCH (20:17)
[2017-08-15] MEDS ORDERED: ATORVASTATIN 10 MG TAB PO SCH (21:00)
[2017-08-15] MEDS ORDERED: MELATONIN 3 MG TAB PO SCH (21:59)
[2017-08-16 03:31] VITALS: BP 122/67
[2017-08-16] MEDS ORDERED: LEVOTHYROXINE SOD 0.025 MG TAB PO SCH (06:00)
[2017-08-16 06:30] LABS: PLATELET COUNT, AUTOMATED 255 K/uL (150-450)
[2017-08-16 06:57] LABS: INR 1.59
--- NOTE | 2017-08-16 08:35 | General Surgery Progress Note ---
Subjective Progress Notes Subjective No complaints. No blood per rectum since yesterday. No abdominal pain. Physical Exam Vital Signs Date Time Temp Pulse Resp B/P (MAP) Pulse Ox O2 Delivery O2 Flow Rate FiO2 08/16/17 03:33 83 08/16/17 03:31 98.4 85 20 122/67 (85) Nasal Cannula 2.0 General Appearance: Alert, Awake, No Acute Distress, Afebrile GI: Soft and Non-Tender Extremities: Warm, Perfused Result Diagram: 08/16/17 0528 08/16/17 0500 Assessment and Plan Problems: (1) GI bleed Status: Acute Assessment & Plan: 08/15/17: Admit, FFP, vitamin K to normalize her INR. Will follow the bleeding. If her bleeding stops as her coagulation returns to normal , will d/c to home with plans for colonoscopy and mass excision this week. If bleeding persists, H/H drops significantly, or she becomes unstable then will need to scope her more urgently. 08/16/17: Bleeding seems to have stopped. If no blood today then will d/c later today or tomorrow morning with plans for colonoscopy and right upper chest mass excision as scheduled next week. Will keep her off blood thinners until procedure. Condition Stable. Time Spent: < 30 min Exam Sepsis Risk: No Definite Risk Problem Qualifiers (1) GI bleed: GI bleed type/associated pathology: unspecified gastrointestinal hemorrhage type Qualified Codes: K92.2 - Gastrointestinal hemorrhage, unspecified JEAN PITTMAN MD Aug 16, 2017 08:35
[2017-08-16] MEDS: FOLIC ACID/CYANOCOB/PYRIDOXINE PO SCH (08:52)
[2017-08-16] MEDS: guaiFENesin 600 MG TABCR PO SCH (08:52)
[2017-08-16] MEDS: GABAPENTIN 100 MG CAP PO SCH (08:52)
[2017-08-16 08:53] VITALS: BP 129/70
[2017-08-16] MEDS ORDERED: PANTOPRAZOLE SOD 40 MG TABEC PO SCH (09:00)
[2017-08-16] MEDS ORDERED: FOLIC ACID 1 MG TAB PO SCH (09:00)
[2017-08-16] MEDS ORDERED: MULTIVITAMINS TAB PO SCH (09:00)
[2017-08-16] MEDS ORDERED: CHOLECALCIFEROL 1000 UNIT TAB PO SCH (09:00)
[2017-08-16 13:11] VITALS: Ht 152.4 cm; Wt 68.1 kg
--- NOTE | 2017-08-16 13:59 | Short(Outpt) Discharge Summary ---
Discharge Summary Reason for Hosp/Final Diag: (1) GI bleed Status: Acute Hospital Course & Plan: 08/15/17: Admit, FFP, vitamin K to normalize her INR. Will follow the bleeding. If her bleeding stops as her coagulation returns to normal, will d/c to home with plans for colonoscopy and mass excision this week. If bleeding persists, H/H drops significantly, or she becomes unstable then will need to scope her more urgently. 08/16/17: Bleeding seems to have stopped. If no blood today then will d/c later today or tomorrow morning with plans for colonoscopy and right upper chest mass excision as scheduled next week. Will keep her off blood thinners until procedure. 08/16/17 (afternoon): Doing well. No further bleeding, only small amount of blood on outside of BM. Will d/c to assisted-living facility and will continue with plans for right upper chest mass and colonoscopy next week as scheduled. She will remain off blood thinners in the mean time. Departure Discharge to: Assisted Living Discharge Instructions Home Meds Active Scripts Guaifenesin (MUCINEX) 600 Mg Tablet.er, 1 TAB PO BID for 7 Days, #14 TAB 0 Refills Prov:VELIA MCMANUS APRNP-C 08/09/17 Simethicone (SIMETHICONE) 125 Mg Tab.chew, 1 TAB PO TIDPC Y for GAS, #90 TAB.CHEW 5 Refills Please offer after meals pt may not remember to ask but does not need to take if not having problems with gas Prov:VELIA MCMANUS APRNP-C 08/09/17 Levothyroxine Sodium (SYNTHROID) 25 Mcg Tablet, 1 TAB PO QDAY, #90 TAB 1 Refill Prov:VELIA MCMANUS APRNP-C 07/30/17 Cholecalciferol (Vitamin D3) (VITAMIN D3) 2,000 Unit Capsule, 1 CAP PO DAILY, # 90 CAP 3 Refills Prov:VELIA MCMANUS APRNP-C 07/30/17 Warfarin Sodium (WARFARIN SODIUM) 5 Mg Tablet, 0.5-1 TAB PO DAILY, #90 TAB 3 Refills Take one 5 mg tab on , wed, th, sat, and sun Take half tab (2.5 mg) on Wed and Wednesday Prov:VELIA MCMANUS APRN-C 07/15/17 Gabapentin (GABAPENTIN) 100 Mg Capsule, 2 TAB PO TID, #180 CAPSULE 5 Refills Prov:VELIA MCMANUS APRN-C 06/11/17 Omeprazole (OMEPRAZOLE) 20 Mg Capsule.dr, 1 CAP PO QDAY, #90 CAP 3 Refills Prov:VELIA MCMANUS APRN-Debo 04/07/17 Folic Acid (FOLIC ACID) 1 Mg Tablet, 1 MG PO QDAY, #90 TAB 1 Refill Prov:VELIA MCMANUS APRN-C 03/11/17 Atorvastatin Calcium (ATORVASTATIN CALCIUM) 10 Mg Tablet, 1 TAB PO QHS, #90 TAB 3 Refills Prov:VELIA MCMANUS APRN-Debo 03/11/17 Acetaminophen (ACETAMINOPHEN) 500 Mg Tablet, 1 TAB PO TID, #270 TAB Prov:VELIA MCMANUS APRN-Debo 11/06/16 Multivitamin (MULTIVITAMINS) 1 Each Tablet, 1 TAB PO DAILY, #30 TAB 11 Refills Prov:LORENE GAO MD 08/03/16 Vitamin B Complex (VITAMIN B COMPLEX) 1 Each Capsule, 1 EACH PO BID, #180 CAPSULE 1 Refill Prov:VELIA MCMANUS APRNC 07/15/16 Discontinued Reported Medications Zeaxanthin (ZEAXANTHIN) 100 Gm Powder 07/11/17 Discontinued Scripts Peg 3350/Na Sulf,Bicarb,Cl/Kcl (PEG-3350 AND ELECTROLYTES SOLN) 4,000 Ml Soln.recon, 1 GAL PO ONCE, #1 GAL 0 Refills Prov:JEAN PITTMAN MD 08/06/17 Duloxetine Hcl (CYMBALTA) 60 Mg Capsule.dr, 1 CAP PO DAILY, #90 CAP 1 Refill Prov:VELIA MCMANUS APRN 07/15/17 Quetiapine Fumarate (SEROQUEL) 25 Mg Tablet, 0.5-1 TAB PO BID, #453 TAB 1 Refill 0.5 tab po QAM and 1 tab po QHS Prov:VELIA MCMANUS APRN 06/21/17 Glycerin/Propylene Glycol (ARTIFICIAL TEARS DROPS) 30 Ml Drops, 2 GTT OU QID, # 30 ML 5 Refills Prov:VELIA MCMANUS [employer]MARKETING [employer]ENT-C 01/18/17 Diet: Regular Activity: As Tolerated, With Walker Special Instructions: Stay off coumadin and NSAIDS (ibuprofen, motrin, advil, aleve, naproxen, naprosyn, etc) until after the colonoscopy. Tylenol (acetaminophen) is OK to take. Please call my office or come in to the ER if you continue to have a lot of blood with bowel movements. Problem Qualifiers (1) GI bleed: GI bleed type/associated pathology: unspecified gastrointestinal hemorrhage type Qualified Codes: K92.2 - Gastrointestinal hemorrhage, unspecified JEAN PITTMAN MD Aug 16, 2017 13:59
[2017-08-16] MEDS ORDERED: MELATONIN 3 MG TAB PO SCH (21:00)
[2017-08-18] MEDS ORDERED: GUAI600T57 PO (14:36)
[2017-08-19] MEDS ORDERED: CALC-707 PO (16:18)
[2017-08-19] MEDS ORDERED: POLY17PO25 PO (16:18)
[2017-08-19] MEDS ORDERED: PHEN10TA PO (16:18)
[2017-08-19] MEDS ORDERED: DEXT1DRO15 OP (16:18)
[2017-08-19] MEDS ORDERED: DULO60CA7 PO (16:18)
[2017-08-19] MEDS ORDERED: MELA5TAB6 PO (16:18)
[2017-08-19] MEDS ORDERED: GUAI237L21 PO (16:18)
[2017-08-19] MEDS ORDERED: WARF5TAB23 PO (16:18)
[2017-08-19] MEDS ORDERED: QUET100T PO (16:18)
[2017-08-19] MEDS ORDERED: IPRA3AMP21 IH (16:18)
[2017-08-19] MEDS ORDERED: MOM PO (16:18)
== END 2017-08-16 13:52 | disposition home or self-care (01) ==
LOC: ER 12:47 → MED 15:26 → INTOOBSV 15:26
PROVIDERS: ADMIT Surgery; ATTEND Surgery
DX: K92.2 Gastrointestinal hemorrhage, unspecified (principal)
CPT/HCPCS: 36415; 71046; 81001; 85025; 85610; 86850; 86870; 86900; 86901; 96361; 96365; 96372; 99285; A4353; A9270; C9113; G0378; J3430; J7040; J7050; P9017; 82040; 82247; 82310; 82374; 82435; 82565; 82947; 84075; 84132; 84155; 84295; 84450; 84460; 84520

== ENCOUNTER → 2017-08-17 | Outpatient (CLI) | payer MEDICARE, BC, MEDICAID ==
[2017-07-11 10:53] VITALS: BMI 31.0
[~2017-08-17] MED LIST changes: +CALC-707 PO; +DEXT1DRO15 OP; +GUAI237L21 PO; +MELA5TAB6 PO; +PHEN10TA PO; +POLY17PO25 PO; +QUET100T PO
== END ==
LOC: ZZSPRING 00:20
PROVIDERS: ATTEND Nurse Practitioner Family
DX: I48.2 Chronic atrial fibrillation (principal); Z79.01 Long term (current) use of anticoagulants

== ENCOUNTER 2017-08-26 01:43 | Day surgery (SDC) | payer MEDICARE, BC, MEDICAID ==
[2017-07-11 10:53] VITALS: Ht 157.5 cm; Wt 67.6 kg
[~2017-08-26] VITALS: Ht 157.5 cm; Wt 67.6 kg
[2017-08-26] MEDS ORDERED: fentaNYL CITR 100 MCG/2 ML AMP ONE ×2 (09:36→12:06)
[2017-08-26] MEDS ORDERED: PROPOFOL EMUL(*) 10MG/ML 20 ML 60 ML ONE (09:37)
[2017-08-26] MEDS ORDERED: LIDOCAINE MPF 1% 5 ML VIAL ONE (09:37)
[2017-08-26 09:47] VITALS: BP 131/72
[2017-08-26] MEDS ORDERED: ROPIVACAINE 0.5% 20 ML VIAL ONE (10:23)
[2017-08-26] MEDS ORDERED: ePHEDrine 25 MG/5 ML DISP.SYR IVP ONE ×3 (10:31→11:05)
[2017-08-26] MEDS ORDERED: DOCU-416 PO (11:47)
[2017-08-26] MEDS ORDERED: OXYC-854 PO (11:47)
--- NOTE | 2017-08-26 11:51 | Short(Outpt) Discharge Summary ---
Discharge Summary Reason for Hosp/Final Diag: (1) History of colon cancer Status: Chronic Hospital Course & Plan: Colonoscopy (incomplete due to poor bowel prep) and right infraclavicular lipoma excision completed without problems. (2) Mass of subcutaneous tissue Status: Chronic Departure Discharge to: Home, Self Care Discharge Instructions Home Meds Active Scripts Docusate Sodium (COLACE) 100 Mg Capsule, 1 CAP PO BID, #30 CAPSULE 0 Refills Prov:SARMAD PITTMAN MD 08/26/17 Oxycodone Hcl/Acet 5/325 Mg (ENDOCET 5-325 TABLET) 1 Each Tablet, 1 TAB PO Q4H Y for PAIN, #20 TAB 0 Refills Prov:SARMAD PITTMAN MD 08/26/17 Guaifenesin (MUCINEX) 600 Mg Tablet.er, 1 TAB PO BID, #30 TAB 3 Refills Prov:SARMAD PITTMAN MD 08/18/17 Simethicone (SIMETHICONE) 125 Mg Tab.chew, 1 TAB PO TIDPC Y for GAS, #90 TAB.CHEW 5 Refills Please offer after meals pt may not remember to ask but does not need to take if not having problems with gas Prov:VELIA MCMANUS APRNP-C 08/09/17 Levothyroxine Sodium (SYNTHROID) 25 Mcg Tablet, 1 TAB PO QDAY, #90 TAB 1 Refill Prov:VELIA MCMANUS APRN-C 07/30/17 Cholecalciferol (Vitamin D3) (VITAMIN D3) 2,000 Unit Capsule, 1 CAP PO DAILY, # 90 CAP 3 Refills Prov:VELIA MCMANUS APRN-C 07/30/17 Gabapentin (GABAPENTIN) 100 Mg Capsule, 2 TAB PO TID, #180 CAPSULE 5 Refills Prov:VELIA MCMANUS APRN DIRECTOR CORPORATE-C 06/11/17 Omeprazole (OMEPRAZOLE) 20 Mg Capsule.dr, 1 CAP PO QDAY, #90 CAP 3 Refills Prov:VELIA MCMANUS APRN DIRECTOR [employer]POR[employer]-C 04/07/17 Folic Acid (FOLIC ACID) 1 Mg Tablet, 1 MG PO QDAY, #90 TAB 1 Refill Prov:VELIA MCMANUS APRN-C 03/11/17 Atorvastatin Calcium (ATORVASTATIN CALCIUM) 10 Mg Tablet, 1 TAB PO QHS, #90 TAB 3 Refills Prov:VELIA MCMANUS APRN-C 03/11/17 Acetaminophen (ACETAMINOPHEN) 500 Mg Tablet, 1 TAB PO TID, #270 TAB Prov:VELIA MCMANUS APRN DIRECTOR [employer]PORATE-C 11/06/16 Multivitamin (MULTIVITAMINS) 1 Each Tablet, 1 TAB PO DAILY, #30 TAB 11 Refills Prov:LORENE GAO MD 08/03/16 Vitamin B Complex (VITAMIN B COMPLEX) 1 Each Capsule, 1 EACH PO BID, #180 CAPSULE 1 Refill Prov:VELIA MCMANUS APRNP-C 07/15/16 Reported Medications Ipratropium/Albuterol Sulfate (IPRAT-ALBUT 0.5-3(2.5) MG/3 ML) 3 Ml Ampul.neb, 3 ML IH Q6H Y for SHORTNESS OF BREATH 08/19/17 Phenylephrine Hcl (SUDOGEST PE) 10 Mg Tablet, 10 MG PO Q8H Y for CONGESTION 08/19/17 Calcium Carbonate (ANTACID) 300 Mg Tab.chew, 2 TAB PO Q2H Y for REFLUX, TAB.CHEW 08/19/17 Magnesium Hydroxide (MILK OF MAGNESIA) 400 Mg/5 Ml Oral.susp, 15-30 ML PO Q12H Y for CONSTIPATION, BOTTLE 08/19/17 Guaifenesin/Dextromethorphan (Robitussin Cough-Chest Dm Liq) 100 Mg-5 Mg/5 Ml Liquid, 2 TSP PO Q6H Y for COUGH 08/19/17 Dextran 70/Hypromellose (ARTIFICIAL TEARS) 1 Each Droperette, 1 EACH OP PRN Y for DRY EYES 08/19/17 Quetiapine Fumarate (QUETIAPINE FUMARATE) 100 Mg Tablet, 100 MG PO QDAY 08/19/17 Warfarin Sodium (WARFARIN SODIUM) 5 Mg Tablet, 5 MG PO QDAY, TAB 08/19/17 Polyethylene Glycol 3350 (MIRALAX) 17 Gm Powd.pack, 17 GM PO BID, PKT 08/19/17 Melatonin (MELATONIN) 5 Mg Tablet, 5 MG PO HS 08/19/17 Duloxetine HCl (Duloxetine HCl) 60 Mg Capsule., 1 TAB PO QDAY 08/19/17 Follow up Referrals: General Surgery - 09/03/17 @ Surgery, General with Sarmad Pittman Md You have a follow up appointment scheduled with Dr. Pittman on 09/03/17, at 11:30am. Diet: Regular Activity: As Tolerated Special Instructions: You may remove the dressings on 08/28/17, then you can shower. After showering, leave the incision open to air but place drain dressings around the drain and change these daily. Leave the steristrips in place until they fall off on their own. Do not immerse the incision or drain site for 2 weeks. Keep a running log of how much you empty from the drain and bring the log to your follow up appointment. SARMAD PITTMAN MD Aug 26, 2017 11:51
--- NOTE | 2017-08-26 12:00 | Post Operative Progress Note ---
Post Operative Progress Note Date: Aug 26, 2017 Time: 11:52 Surgeon: Paresh Dictation number: [id number] Anesthesia: LMA by Dr. Fuentes Pre-Op Diagnosis: H/O colon cancer BRBPR Right infraclavicular subcutaneous mass Post-Op Diagnosis: JAZIEL Findings: Poor bowel prep Anastomosis looks good Mass c/w lipoma Procedure(s): Colonoscopy (incomplete due to poor bowel prep) Excision of right infraclavicular subcutaneous mass Specimen Removed:(May be N/A): 1) Right infraclavicular mass Complications: None Fluids: See anesthesia record Estimated Blood Loss: Minimal Date OP Note Dictated: Aug 26, 2017 Time OP Note Dictated: 11:54 JEAN PITTMAN MD Aug 26, 2017 12:00
[2017-08-26] MEDS ORDERED: DEXAMETHASONE SOD 4 MG/ML VIAL ONE (12:26)
[2017-08-26] MEDS ORDERED: ONDANSETRON 4 MG/2 ML VIAL ONE (12:27)
[2017-08-26] MEDS ORDERED: NORMOSOL R SOLN(*) 1000 ML BAG 1,000 ML IV PRN (12:30)
[2017-08-26] MEDS ORDERED: AMPICILLIN/SULBACT (*) 3 GM VL 3 GM in NS(*) 0.9% 100 ML BAG 100 ML IVPB ONE (12:30)
[2017-08-26] MEDS ORDERED: LIDOCAINE/SOD BICARB 8.4% SYR ID ONE (12:30)
[2017-08-26 12:40] VITALS: BP 99/52
[2017-08-26 13:15] VITALS: BP 104/64
[2017-08-26 13:17] VITALS: BP 112/64
--- NOTE | 2017-08-26 17:17 | OPERATIVE REPORT 1 ---
EVENT DATE: August 26, 2017 SURGEON: Sarmad Yoder MD ANESTHESIOLOGIST: Jourdan Fuentes MD ANESTHESIA: LMA. PREOPERATIVE DIAGNOSES 1. Right infraclavicular subcutaneous mass. 2. History of colon cancer. 3. Bright red blood per rectum. POSTOPERATIVE DIAGNOSES 1. Right infraclavicular subcutaneous mass. 2. History of colon cancer. 3. Bright red blood per rectum. PROCEDURES PERFORMED 1. Colonoscopy which was incomplete due to poor bowel prep. Please refer to the endoscopy report about this. 2. Excision of right infraclavicular subcutaneous mass. COMPLICATIONS None. CONDITION Stable. BLOOD LOSS Minimal. INDICATIONS This is an 81-year-old female who has a history of colon cancer that I resected a couple of years ago. She has not had any repeat surveillance colonoscopy since then, but has had bright red blood per rectum pretty consistently over the last year and a half. She is on chronic Coumadin. The blood seems to go away when she stops the Coumadin. She also has a mass below her right collarbone that has been excised once before many years ago, but it has been getting bigger, and she would like to have it removed again. She would like to proceed with a colonoscopy and excision of the right infraclavicular mass. DESCRIPTION OF PROCEDURE The patient was brought to the operating room and placed supine on the operating room table. LMA anesthesia was administered, and she was placed in the left lateral decubitus position. The colonoscopy was attempted, and I was able to get up to the splenic flexure, but the colon was too full of stool and could not be considered at all an adequate procedure. I did not see anything obvious. I did see the anastomosis from the previous resection, and this looked wide open and normal. I did not see any gross blood or anything that looked like it has been recently bleeding. I aborted the procedure. She was placed supine, and her right upper chest, shoulder, and neck were prepped and draped in a sterile fashion. Timeout was completed once again, and I injected the skin overlying the mass with 0.5% ropivacaine plain. I made an elliptical incision to encompass a previous scar. The incision was approximately 6 cm long x 2.5 cm wide. The entire mass itself was about 8 cm in diameter and about 5 cm thick. I dissected through the dermis and then the subcutaneous tissues. There was a nice distinct plane around what appeared to be a lipoma, and it pulled out rather nicely. I dissected very easily the areolar tissue around the lipoma and then passed it off the field. The wound was made hemostatic with pressure, and I placed a 10 mm flat Carl-Leiva drain in the wound. I then closed the skin with interrupted 3-0 Vicryl deep dermal sutures and 4-0 Monocryl running subcuticular sutures. The skin was cleaned and dried, and Steri-Strips were applied, followed by a sterile surgical dressing and drain dressing. The patient was then awakened and LMA removed. She was transferred to the recovery room in stable condition having tolerated the procedure without any apparent problems. ABDIAS
[2017-08-30] MEDS ORDERED: DULO60CA7 PO (09:02)
[2017-08-30] MEDS ORDERED: PRAZ1CAP26 PO (09:04)
== END 2017-08-26 12:40 | disposition home or self-care (01) ==
LOC: OR 01:43
PROVIDERS: ATTEND Surgery
DX: K92.1 Melena (principal); R22.2 Localized swelling, mass and lump, trunk
CPT/HCPCS: 00811; 21552; 45378; 88305; A9270; J0295; J1100; J2001; J2405; J2704; J2795; J3010; J7050

== ENCOUNTER → 2017-09-02 | Outpatient (CLI) | payer MEDICARE, BC, MEDICAID ==
[2017-07-11 10:53] VITALS: BMI 31.0
[~2017-09-02] MED LIST changes: +DOCU-416 PO; +OXYC-854 PO; +PRAZ1CAP26 PO
[2017-09-02 16:04] LABS: INR 1.9
== END ==
LOC: LAB 15:32
PROVIDERS: ATTEND Nurse Practitioner Primary Care
DX: Z51.81 Encounter for therapeutic drug level monitoring (principal); Z79.01 Long term (current) use of anticoagulants
CPT/HCPCS: 36415; 85610

== ENCOUNTER → 2017-09-08 | Outpatient (CLI) | payer MEDICARE, BC, MEDICAID ==
[2017-07-11 10:53] VITALS: BMI 31.0
[~2017-09-08] MED LIST changes: +DICL100G39 TOP; +OXYGENHOME INH
[2017-09-08 15:14] LABS: INR 4.08
== END ==
LOC: LAB 14:47
PROVIDERS: ATTEND Family Medicine
DX: Z51.81 Encounter for therapeutic drug level monitoring (principal); Z79.01 Long term (current) use of anticoagulants; K92.2 Gastrointestinal hemorrhage, unspecified
CPT/HCPCS: 36415; 85610

== ENCOUNTER → 2017-09-14 | Outpatient (CLI) | payer MEDICARE, BC, MEDICAID ==
[2017-07-11 10:53] VITALS: BMI 31.0
[2017-09-14 08:24] LABS: INR 2.13
== END ==
LOC: ZZSPRING 01:28
PROVIDERS: ATTEND Family Medicine
DX: Z51.81 Encounter for therapeutic drug level monitoring (principal); Z79.01 Long term (current) use of anticoagulants
CPT/HCPCS: 36415; 85610

== ENCOUNTER → 2017-09-21 | Outpatient (CLI) | payer MEDICARE, BC, MEDICAID ==
[2017-07-11 10:53] VITALS: BMI 31.0
[~2017-09-21] MED LIST changes: +DUL20 PO
[2017-09-21 17:47] LABS: INR 2.42
== END ==
LOC: LAB 10:57
PROVIDERS: ATTEND Family Medicine
DX: I48.2 Chronic atrial fibrillation (principal); D68.59 Other primary thrombophilia
CPT/HCPCS: 36415; 85610

== ENCOUNTER → 2017-09-21 | Outpatient (CLI) | payer MEDICARE, BC, MEDICAID ==
[2017-07-11 10:53] VITALS: BMI 31.0
[2017-09-21 16:55] LABS: PLATELET COUNT, AUTOMATED 314 K/uL (150-450)
== END ==
LOC: LAB 10:58
PROVIDERS: ATTEND Internal Medicine Hematology
DX: I82.402 Acute embolism and thrombosis of unspecified deep veins of left lower extremity (principal)
CPT/HCPCS: 36415; 82040; 82247; 82310; 82374; 82435; 82565; 82947; 84075; 84132; 84155; 84295; 84450; 84460; 84520; 85025

== ENCOUNTER 2017-09-24 13:00 | Outpatient (RCR) | payer MEDICARE, BC, MEDICAID ==
[2017-07-11 10:53] VITALS: Wt 69.0 kg
[2017-09-24 13:13] VITALS: BP 123/60
--- NOTE | 2017-09-25 19:49 | ONCOLOGY FOLLOW UP NOTE ---
EVENT DATE: September 24, 2017 DIAGNOSES 1. Recurrent deep vein thrombosis, left lower extremity. 2. Positive lupus anticoagulant. 3. 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 5. Heterozygous state for factor V Leiden mutation. 6. 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 7. Hypertension. 8. Arthritis. 9. Macular degeneration. CHIEF COMPLAINT The patient is here today for followup of her hypercoagulable state with recurrent DVT. HEMATOLOGY HISTORY The patient is a 81-year-old female who was diagnosed with stage IIIA adenocarcinoma of the lung (T4 N0 M0). She had a left lower lobe lobectomy in 2012 for bT1 pN0 M0 left lung cancer. There was an area in the lingula in the ipsilateral upper lobe that was concerning, but not resected. Approximately a year later, that lesion was complicated temporarily by an air leak. This is concerning for a T4 lesion with the primary being present in two ipsilateral lobes. She presented recently with swelling and pain in the left lower extremity and she had a Doppler ultrasound on July 12, 2015 which showed extensive left lower extremity DVT and patient was started on anticoagulation with Lovenox bridged to Coumadin. She had some thrombophilia workup, but not a complete workup for thrombophilia, which showed homozygous state for methylenetetrahydrofolate reductase [id number] mutation and her lupus anticoagulant also came back positive. Homocysteine came back high at 15. The patient is positive for heterozygous state for factor V Leiden mutation. Repeat parameters for antiphospholipid antibody syndrome with anticardiolipin antibodies, beta-2 glycoprotein antibodies, lupus anticoagulant done on January came back negative. Her homocysteine level dropped from 15 and currently is 12. HISTORY OF PRESENT ILLNESS Patient is here today for followup of her recurrent DVT of the left lower extremity. She is complaining of shortness of breath. She has pain in her knees, and ankles, but other than that the patient denies any other complaint. PAST MEDICAL HISTORY 1. Left lung cancer. 2. Arthritis. 3. Macular degeneration. 4. Hypertension. 5. Coronary artery disease, status post myocardial infarction. 6. DVT of left lower extremity, July 2015. PAST SURGICAL HISTORY 1. Ileostomy for malignant colon polyp. 2. Left lower lobe lobectomy. FAMILY HISTORY Sister with breast cancer. Mother with some sort of gynecologic cancer, could be uterine or ovarian cancer. SOCIAL HISTORY The patient is a . She lives in a usp. She has five children. She quit smoking two to three years ago after a half pack a day for over fifty years. Denies any abuse of alcohol or drugs. CURRENT MEDICATIONS 1. Aricept 5 mg daily. 2. Atorvastatin 10 mg at bedtime. 3. Ferrous sulfate 325 mg twice daily. 4. Gabapentin 300 mg at bedtime. 5. Mirtazapine 30 mg at bedtime. 6. Omeprazole 20 mg daily. 7. Synthroid 25 mcg daily. 8. Valium 5 mg daily. 9. Vitamin D3 at 2000 U daily. 10. Warfarin 2.5 mg daily. 11. Zofran 4 mg q.12h. p.r.n. for nausea. 12. Nitrostat 0.4 mg sublingually p.r.n. for chest pain. 13. Milk of Magnesia 400 mg/5 mL oral suspension as needed. 14. Ipratropium/albuterol 0.5/2.5 nebulization every six hours. 15. Tramadol 50 mg q.4-6h. p.r.n. for pain. ALLERGIES No known drug allergies. REVIEW OF SYSTEMS CONSTITUTIONAL: No appetite or weight change. No fever, chills or sweating. No recent infection. HEENT: Ears: No tinnitus or hearing problem. Nose: No nasal discharge or epistaxis. Throat: No sore throat or mouth ulcers. Eyes: No diplopia or visual changes. RESPIRATORY: The patient has shortness of breath. CARDIOVASCULAR: No chest pain, orthopnea, or paroxysmal nocturnal dyspnea (PND) . No edema. No palpitations. GASTROINTESTINAL: She has nausea. GENITOURINARY: No hematuria or dysuria. MUSCULOSKELETAL: She has pain in the knees and ankles. NEUROLOGICAL: She has tingling and numbness occasionally. HEMATOLOGIC/LYMPHATIC: She is weak, tired, and fatigued. SKIN: No skin rash or lumps. PSYCHIATRIC: No anxiety or depression. PHYSICAL EXAMINATION GENERAL: Looks stable. Well-developed, well-nourished, and in no acute distress. VITAL SIGNS: Blood pressure 123/60, pulse 97 per minute, respirations 16 per minute, temperature 97, pulse ox 88% on room air. HEENT: Head: Atraumatic. No sinus tenderness to palpation. Eyes: No icterus or conjunctivitis. Mouth and Throat: No oral thrush or mucositis. NECK: Supple. No cervical or supraclavicular lymphadenopathy. LUNGS: Clear to auscultation and percussion bilaterally. HEART: Regular rate and rhythm. No gallops, murmurs, clicks or rubs. ABDOMEN: Soft and lax. No tenderness. No hepatosplenomegaly. No masses. EXTREMITIES: No cyanosis, clubbing or edema. LYMPHATICS: No peripheral lymphadenopathy. NEUROLOGICAL: Conscious, alert and oriented times three. No focal motor or sensory deficits. PSYCHIATRIC: Mood and affect appear normal. SKIN: No skin rash, bruise or purpuric eruption. DIAGNOSTIC DATA CBC showed white count 5.9, hemoglobin 9.8, hematocrit 31.2, platelets 314,000. Homocysteine level in March 2017 was high at 19. Patient did not check her count this time, but she is going to do that next week. ASSESSMENT 1. Deep venous thrombosis left lower extremity. Patient had positive lupus anticoagulant, heterozygous state for factor V Leiden mutation and heterozygous state for methylenetetrahydrofolate reductase mutation with hyperhomocysteinemia. Repeat antiphospholipid antibody testing came back negative. Patient had two episodes of blood clotting with heterozygous state for factor V Leiden mutation and for this reason the patient is a candidate for lifelong anticoagulation. She is currently on Coumadin lifelong. 2. Positive lupus anticoagulant. Repeat testing after three months in January 2016 was negative, so patient does not fit the criteria of antiphospholipid antibody syndrome. 3. Heterozygous state for methylenetetrahydrofolate [id number] mutation. Patient currently on folic acid 2 mg daily and vitamin B complex three times daily. Her last homocysteine level in March 2017 was high at 19. She is going to have her blood checked for fasting homocysteine next week, and I will adjust the dose of the multivitamins based on that. 4. Heterozygous state for factor V Leiden mutation with two episodes of blood clotting in her left lower extremity in the past, so the patient is a candidate for lifelong anticoagulation. 5. History of stage III adenocarcinoma of the left lung involving the left lower lobe status post left lower lobe lobectomy, April 2013 followed by wedge resection of the left upper lobe lingula October 2013 due to growth of previously noted lesion. Lymph nodes were not involved. Repeat CT scan January 06, 2016 did not show any change. The 2-3 mm noncalcified nodule in the posterior aspect of the right upper lobe and the right lower lobe remained unchanged. 6. Hyperhomocystinemia. Her last homocysteine level in March 2017 was 19. Patient is going to have her fasting homocysteine level be checked very soon, next week. 7. Hypertension, on treatment. 8. Macular degeneration. PLAN 1. Folic acid 2 mg daily. 2. Vitamin B complex three times daily. 3. Patient to return in six months with homocysteine level. 4. Patient is to contact us for any new concern or complaints. ABDIAS
[2017-10-06] MEDS ORDERED: ATOR10TA65 PO (08:41)
[2017-10-06] MEDS ORDERED: DULO30CA35 PO (17:24)
[2017-10-06] MEDS ORDERED: DULO60CA56 PO (17:42)
[2017-10-13] MEDS ORDERED: PRAZ1CAP26 PO (18:17)
[2017-10-20] MEDS ORDERED: ATOR10TA65 PO (11:46)
[2017-10-25] MEDS ORDERED: FURO40TA35 PO (21:14)
[2017-10-26] MEDS ORDERED: WARF5TAB23 PO (14:11)
== END 2017-11-01 13:21 | disposition home or self-care (01) ==
LOC: ONC 13:00
PROVIDERS: ATTEND Internal Medicine Hematology
DX: I82.402 Acute embolism and thrombosis of unspecified deep veins of left lower extremity (principal); D68.51 Activated protein C resistance; E72.12 Methylenetetrahydrofolate reductase deficiency; E72.11 Homocystinuria; Z79.01 Long term (current) use of anticoagulants; D68.62 Lupus anticoagulant syndrome; Z85.118 Personal history of other malignant neoplasm of bronchus and lung; I10 Essential (primary) hypertension; H35.30 Unspecified macular degeneration; R06.02 Shortness of breath; Z87.891 Personal history of nicotine dependence; Z79.899 Other long term (current) drug therapy; R11.0 Nausea; R53.1 Weakness; R53.83 Other fatigue
CPT/HCPCS: 99212

== ENCOUNTER → 2017-09-28 | Outpatient (CLI) | payer MEDICARE, BC, MEDICAID ==
[2017-07-11 10:53] VITALS: BMI 31.0
== END ==
LOC: ZZSPRING 00:21
PROVIDERS: ATTEND Internal Medicine Hematology
DX: I82.402 Acute embolism and thrombosis of unspecified deep veins of left lower extremity (principal)

== ENCOUNTER → 2017-10-12 | Outpatient (CLI) | payer MEDICARE, BC, MEDICAID ==
[2017-07-11 10:53] VITALS: BMI 31.0
[~2017-10-12] MED LIST changes: +DULO30CA35 PO
[2017-10-12 09:01] LABS: INR 5.79
== END ==
LOC: ZZSPRING 10-11 08:32
PROVIDERS: ATTEND Family Medicine
DX: D68.59 Other primary thrombophilia (principal); I48.2 Chronic atrial fibrillation; Z79.01 Long term (current) use of anticoagulants
CPT/HCPCS: 36415; 85014; 85018; 85610

== ENCOUNTER → 2017-10-19 | Outpatient (CLI) | payer MEDICARE, BC, MEDICAID ==
[2017-07-11 10:53] VITALS: BMI 31.0
[2017-10-19 09:11] LABS: INR 4.38
== END ==
LOC: ZZSPRING 00:56
PROVIDERS: ATTEND Family Medicine
DX: Z51.81 Encounter for therapeutic drug level monitoring (principal); Z79.01 Long term (current) use of anticoagulants
CPT/HCPCS: 36415; 85610

== ENCOUNTER 2017-10-25 18:45 | Emergency (ER) | payer MEDICARE, BC, MEDICAID ==
[2017-07-11 10:53] VITALS: Wt 67.7 kg
--- NOTE | 2017-10-25 18:54 | ER Report ---
History and Physical Time Seen By MD: 18:53 HPI/ROS CHIEF COMPLAINT: Abdominal pain, swelling HISTORY OF PRESENT ILLNESS: 82-year-old female patient presents to emergency room with her daughter with complaint of abdominal pain and swelling. Patient states that she has had abdominal pain for the past couple weeks. She has had some episodes of vomiting, she states that seems to get better and then will get worse again. Patient states that she has not taken any medication for this. She states she has taken her normal medications intermittently. She states that she has thought had any fevers, chills, or diarrhea. She denies having any chest pain. Her daughter states that she has noticed swelling to the lower extremity is. Daughter states it seems to be equal bilaterally. She states that she just seems to be swollen everywhere. Patient was seen by her primary care provider last week, daughter is unsure of results of that visit. Daughter states that she has not noticed any wheezing. REVIEW OF SYSTEMS: Respiratory: No cough, no dyspnea. Cardiovascular: No chest pain, no palpitations. Gastrointestinal: As noted above Musculoskeletal: No back pain. Allergies: Coded Allergies: No Known Drug Allergies (Unverified , 10/25/17) Home Meds Active Scripts Furosemide (LASIX) 40 Mg Tablet, 1 TAB PO DAILY for 30 Days, #30 TAB Prov:AKILA AGOSTO 10/25/17 Atorvastatin Calcium (ATORVASTATIN CALCIUM) 10 Mg Tablet, 1 TAB PO QODAY for 90 Days, #45 TAB 4 Refills Prov:ZO DENIS MD 10/20/17 Prazosin Hcl (PRAZOSIN HCL) 1 Mg Capsule, 1 TAB PO DAILY for 90 Days, #90 CAPSULE 4 Refills Prov:ZO DENIS MD 10/13/17 Duloxetine Hcl (CYMBALTA) 60 Mg Capsule.dr, 60 MG PO QAM for 90 Days, #90 CAP Prov:ZO DENIS MD 10/06/17 Duloxetine Hcl (CYMBALTA) 30 Mg Capsule.dr, 30 MG PO QDAY for 30 Days, #30 CAP Prov:ZO DENIS MD 10/06/17 Gabapentin (GABAPENTIN) 100 Mg Capsule, 2 TAB PO BID, #180 CAPSULE 5 Refills Prov:ZO DENIS MD 09/16/17 Folic Acid (FOLIC ACID) 1 Mg Tablet, 1 TAB PO QDAY for 90 Days, #90 TAB 4 Refills Prov:ZO DENIS MD 09/08/17 Acetaminophen (ACETAMINOPHEN) 500 Mg Tablet, 2 TAB PO TID, #270 TAB Prov:ZO DENIS MD 09/08/17 Oxycodone Hcl/Acet 5/325 Mg (ENDOCET 5-325 TABLET) 1 Each Tablet, 1 TAB PO Q4H Y for PAIN, #20 TAB 0 Refills Prov:JEAN PITTMAN MD 08/26/17 Guaifenesin (MUCINEX) 600 Mg Tablet.er, 1 TAB PO BID, #30 TAB 3 Refills Prov:JEAN PITTMAN MD 08/18/17 Simethicone (SIMETHICONE) 125 Mg Tab.chew, 1 TAB PO TIDPC Y for GAS, #90 TAB.CHEW 5 Refills Please offer after meals pt may not remember to ask but does not need to take if not having problems with gas Prov:VELIA MCMANUS APRN-C 08/09/17 Levothyroxine Sodium (SYNTHROID) 25 Mcg Tablet, 1 TAB PO QDAY, #90 TAB 1 Refill Prov:VELIA MCMANUS APRN-C 07/30/17 Cholecalciferol (Vitamin D3) (VITAMIN D3) 2,000 Unit Capsule, 1 CAP PO DAILY, # 90 CAP 3 Refills Prov:VELIA MCMANUS APRN-C 07/30/17 Omeprazole (OMEPRAZOLE) 20 Mg Capsule.dr, 1 CAP PO QDAY, #90 CAP 3 Refills Prov:VELIA MCMANUS APRN-C 04/07/17 Vitamin B Complex (VITAMIN B COMPLEX) 1 Each Capsule, 1 EACH PO BID, #180 CAPSULE 1 Refill Prov:VELIA MCMANUS APRNP-C 07/15/16 Reported Medications Oxygen (OXYGEN) Inha, 2 L INH DAILY, L 09/08/17 Ipratropium/Albuterol Sulfate (IPRAT-ALBUT 0.5-3(2.5) MG/3 ML) 3 Ml Ampul.neb, 3 ML IH Q6H Y for SHORTNESS OF BREATH 08/19/17 Phenylephrine Hcl (SUDOGEST PE) 10 Mg Tablet, 10 MG PO Q8H Y for CONGESTION 08/19/17 Calcium Carbonate (ANTACID) 300 Mg Tab.chew, 2 TAB PO Q2H Y for REFLUX, TAB.CHEW 08/19/17 Magnesium Hydroxide (MILK OF MAGNESIA) 400 Mg/5 Ml Oral.susp, 15-30 ML PO Q12H Y for CONSTIPATION, BOTTLE 08/19/17 Guaifenesin/Dextromethorphan (Robitussin Cough-Chest Dm Liq) 100 Mg-5 Mg/5 Ml Liquid, 2 TSP PO Q6H Y for COUGH 08/19/17 Dextran 70/Hypromellose (ARTIFICIAL TEARS) 1 Each Droperette, 1 EACH OP PRN Y for DRY EYES 08/19/17 Warfarin Sodium (WARFARIN SODIUM) 5 Mg Tablet, 5 MG PO QDAY, TAB 08/19/17 Polyethylene Glycol 3350 (MIRALAX) 17 Gm Powd.pack, 17 GM PO BID, PKT 08/19/17 Melatonin (MELATONIN) 5 Mg Tablet, 5 MG PO HS 08/19/17 Past Medical/Surgical History Patient has a past medical history of CVA, TIA, dementia, FL, DVT, irregular heartbeat, adenocarcinoma, hepatitis, reflux, liver disease, incontinence, arthritis, fractures, hypothyroidism, depression. Patient has a surgical history of cataract surgery, hysterectomy, bowel surgery. Reviewed Nurses Notes: Yes Hx Smoking: Yes Smoking Status: Former Smoker Hx Substance Use Disorder: No Hx Alcohol Use: No Constitutional Vital Sign - Last 24 Hours 10/25/17 10/25/17 10/25/17 10/25/17 18:55 19:00 19:15 19:30 Temp 98.3 Pulse 104 101 105 99 Resp 18 B/P (MAP) 124/89 Pulse Ox 95 93 93 94 O2 Delivery Room Air 10/25/17 10/25/17 10/25/17 10/25/17 19:45 20:00 20:15 20:30 Pulse 99 73 ??? 106 Pulse Ox 92 93 94 10/25/17 20:45 Pulse 104 Pulse Ox 93 Physical Exam General Appearance: The patient is alert, has no immediate need for airway protection and no current signs of toxicity. ENT: Tympanic membranes are pearly-purdy, auditory canals are patent, mucous membranes are moist. Respiratory: Chest is non tender, lungs are clear to auscultation. Cardiac: regular rate and rhythm. Patient has bilateral lower extremity edema, 3 +. Gastrointestinal: Abdomen is soft and diffusely tender, no masses, bowel sounds are hypoactive in the right lower quadrant. Musculoskeletal: Neck: Neck is supple and non tender. Extremities have full range of motion and are non tender. Skin: No rashes or lesions. DIFFERENTIAL DIAGNOSIS: After history and physical exam differential diagnosis was considered for abdominal pain including but not limited to appendicitis, cholecystitis, gastritis and urinary tract infection. Included in the differential is congestive heart failure, FL. Medical Decision Making Data Points Result Diagram: 10/25/17189910/25/171899 Laboratory Hematology Test 10/25/17 19:00 Red Blood Count 4.78 M/uL (4.17-5.56) Mean Corpuscular Volume 72.9 fL (80.0-96.0) Mean Corpuscular Hemoglobin 22.4 pg (26.0-33.0) Mean Corpuscular Hemoglobin Concent 30.8 g/dL (32.0-36.0) Red Cell Distribution Width 21.6 % (11.5-14.5) Mean Platelet Volume 8.5 fL (7.2-11.1) Neutrophils (%) (Auto) 59.5 % (39.4-72.5) Lymphocytes (%) (Auto) 24.0 % (17.6-49.6) Monocytes (%) (Auto) 14.6 % (4.1-12.4) Eosinophils (%) (Auto) 1.6 % (0.4-6.7) Basophils (%) (Auto) 0.3 % (0.3-1.4) Nucleated RBC Relative Count (auto) 0.5 /100WBC Neutrophils # (Auto) 3.6 K/uL (2.0-7.4) Lymphocytes # (Auto) 1.4 K/uL (1.3-3.6) Monocytes # (Auto) 0.9 K/uL (0.3-1.0) Eosinophils # (Auto) 0.1 K/uL (0.0-0.5) Basophils # (Auto) 0.0 K/uL (0.0-0.1) Nucleated RBC Absolute Count (auto) 0.03 K/uL Prothrombin Time 32.0 seconds (12.0-14.4) Prothromb Time International Ratio 2.97 Activated Partial Thromboplast Time 45 seconds (23-35) Sodium Level 140 mmol/L (137-145) Potassium Level 4.6 mmol/L (3.5-5.0) Chloride Level 102 mmol/L (98-107) Carbon Dioxide Level 23 mmol/L (22-31) Blood Urea Nitrogen 17 mg/dl (7-18) Creatinine 1.10 mg/dl (0.52-1.04) Glomerular Filtration Rate Calc 47.6 Random Glucose 109 mg/dl (75-110) Calcium Level 9.7 mg/dl (8.4-10.2) Total Bilirubin 1.4 mg/dl (0.2-1.3) Aspartate Amino Transf (AST/SGOT) 50 U/L (0-35) Alanine Aminotransferase (ALT/SGPT) 46 U/L (0-56) Alkaline Phosphatase 132 U/L (0-126) Troponin I 0.037 ng/ml C-Reactive Protein 1.7 mg/dl (<1.0) B-Type Natriuretic Peptide 1800 pg/ml (0-100) Total Protein 6.5 gm/dl (6.3-8.2) Albumin 4.0 g/dl (3.5-5.0) Amylase Level 51 U/L (0-110) Lipase 57 U/L (23-300) Chemistry Test 10/25/17 19:00 White Blood Count 6.0 k/uL (4.5-11.0) Red Blood Count 4.78 M/uL (4.17-5.56) Hemoglobin 10.7 g/dL (12.0-16.0) Hematocrit 34.8 % (34.0-47.0) Mean Corpuscular Volume 72.9 fL (80.0-96.0) Mean Corpuscular Hemoglobin 22.4 pg (26.0-33.0) Mean Corpuscular Hemoglobin Concent 30.8 g/dL (32.0-36.0) Red Cell Distribution Width 21.6 % (11.5-14.5) Platelet Count 265 K/uL (150-450) Mean Platelet Volume 8.5 fL (7.2-11.1) Neutrophils (%) (Auto) 59.5 % (39.4-72.5) Lymphocytes (%) (Auto) 24.0 % (17.6-49.6) Monocytes (%) (Auto) 14.6 % (4.1-12.4) Eosinophils (%) (Auto) 1.6 % (0.4-6.7) Basophils (%) (Auto) 0.3 % (0.3-1.4) Nucleated RBC Relative Count (auto) 0.5 /100WBC Neutrophils # (Auto) 3.6 K/uL (2.0-7.4) Lymphocytes # (Auto) 1.4 K/uL (1.3-3.6) Monocytes # (Auto) 0.9 K/uL (0.3-1.0) Eosinophils # (Auto) 0.1 K/uL (0.0-0.5) Basophils # (Auto) 0.0 K/uL (0.0-0.1) Nucleated RBC Absolute Count (auto) 0.03 K/uL Prothrombin Time 32.0 seconds (12.0-14.4) Prothromb Time International Ratio 2.97 Activated Partial Thromboplast Time 45 seconds (23-35) Glomerular Filtration Rate Calc 47.6 Calcium Level 9.7 mg/dl (8.4-10.2) Total Bilirubin 1.4 mg/dl (0.2-1.3) Aspartate Amino Transf (AST/SGOT) 50 U/L (0-35) Alanine Aminotransferase (ALT/SGPT) 46 U/L (0-56) Alkaline Phosphatase 132 U/L (0-126) Troponin I 0.037 ng/ml C-Reactive Protein 1.7 mg/dl (<1.0) B-Type Natriuretic Peptide 1800 pg/ml (0-100) Total Protein 6.5 gm/dl (6.3-8.2) Albumin 4.0 g/dl (3.5-5.0) Amylase Level 51 U/L (0-110) Lipase 57 U/L (23-300) Coagulation Test 10/25/17 19:00 Prothrombin Time 32.0 seconds Prothromb Time International Ratio 2.97 Activated Partial Thromboplast Time 45 seconds EKG/Imaging EKG Interpretation 12 lead EKG: Rhythm: Sinus tachycardia with ventricular rate of 102 bpm [place]: normal QRS: Low voltage QRS ST segments: normal Imaging EXAMINATION: CT abdomen with IV contrast CT pelvis with IV contrast HISTORY: Abdominal pain. TECHNIQUE: Spiral scan was through the abdomen and pelvis during injection of nonionic iodinated intravenous contrast. Sagittal and coronal reformatted images are also submitted. One of the following dose optimization techniques was utilized in the performance of this exam: Automated exposure control; adjustment of the mA and/ or kV according to the patient's size; or use of an iterative reconstruction technique. Specific details can be referenced in the facility's radiology CT exam operational policy. CONTRAST: 75 mL of IV Isovue-370 COMPARISON: Chest, abdomen, and pelvis CT dated 07/16/2017. FINDINGS: Lower chest: Partially imaged pleural thickening and pleural gas in the left lung base. Small right pleural effusion. No significant change. Liver / biliary: Heterogeneous hepatic enhancement with no definite focal mass. No dilated bile ducts. Gallbladder is unremarkable. Pancreas: Negative. Spleen: Calcified granulomas. Stable small cyst in the superior spleen. Adrenal glands: Negative. Kidneys: Stable small bilateral renal cysts. Pelvic structures: Hysterectomy. Otherwise negative. Bowel: Postsurgical changes in the distal small bowel and distal colon. No obstruction or bowel wall thickening. Peritoneum / retroperitoneum / mesenteries: Mild free fluid in the pelvis, increased compared with 07/16/2017. No free air. Vessels: Severe aortoiliac calcification without aneurysm. Musculoskeletal / Body wall: Moderate to severe bilateral hip osteoarthritis. Multilevel degenerative disc disease and facet hypertrophy in the thoracolumbar spine with grade 1 anterior listhesis of L4 over L5. Diffuse subcutaneous edema suspicious for anasarca. Lymph node assessment: Negative. IMPRESSION: 1. Heterogeneous hepatic enhancement with no definite focal mass. This could be secondary to diffuse liver disease or may be related to contrast timing given that this is predominantly in the arterial phase. Metastasis is also possible. Close attention on follow-up imaging is recommended. 2. Diffuse subcutaneous edema suspicious for anasarca. 3. Mild free fluid in the pelvis, slightly increased compared with 07/16/2017. Report Dictated By: Neville Ocasio MD at 10/25/2017 8:29 PM Report E-Signed By: Neville Ocasio MD at 10/25/2017 8:37 PM Chest 2 views: HISTORY: Abdominal pain, edema. COMPARISON: 08/15/2017 FINDINGS: Heart is enlarged and there is mild prominence of the central vasculature. Interstitial markings are mildly prominent but appears somewhat improved radiographically when compared to previous. There is scarring in the left lung base and left lateral pleural space which is unchanged. Right lung is clear. There is no pleural effusion or pneumothorax. No evidence of overt congestive heart failure. Degenerative changes are present in the thoracic spine. IMPRESSION: 1. Mild cardiomegaly and vascular congestion without evidence of overt congestive heart failure. 2. Stable pleural parenchymal abnormalities, left lung base. Report Dictated By: Yesenia Mar MD at 10/25/2017 8:22 PM Report E-Signed By: Yesenia Mar MD at 10/25/2017 8:24 PM ED Course/Re-evaluation ED Course Patient was admitted to exam room, history and physical were obtained. Differential diagnoses were considered. On examination patient does have 3+ pitting edema to bilateral lower extremities. Patient did have some abdominal tenderness to palpation. A CBC, CMP, BNP, troponin, EKG, chest x-ray and CT scan of the abdomen and pelvis were done. CBC was unremarkable, troponin was indeterminate, however those were she's been running recently. I believe those likely secondary to her kidney function being decreased. CMP showed a creatinine of 1.1 with a GFR of 47. BNP was 1800. EKG showed a sinus tachycardia. The x-ray showed some pulmonary congestion. CT scan of abdomen and pelvis did show an abnormal finding in the liver, however the radiologist was unsure if that was related to contrast there is something there and recommended a repeat study. Also noticed significant edema in the subcutaneous tissue. I felt the patient should be admitted and diuresed. I discussed case with Dr. Mitchell, hospitalist, who felt that this was something we can be treated orally with outpatient therapy, especially as she is not currently on any diuretics and her BNP has remained stable over the last 2 years. He felt that an echo could be done as an outpatient. I discussed this with the patient and the family. I will have her follow-up with Dr. Denis later this week, I will also have the nurses continue to check her weight on a daily basis. She is return to emergency room if she has more than a 2 pound weight gain in 24 hour period. I discussed this with the patient and her daughter and they verbalized understanding and agreement with plan. Decision to Disposition Date: October 25, 2017 Decision to Disposition Time: 21:16 Depart Departure Latest Vital Signs Vital Signs Date Time Temp Pulse Resp B/P (MAP) Pulse Ox O2 Delivery O2 Flow Rate FiO2 10/25/17 20:45 104 93 10/25/17 18:55 98.3 18 124/89 Room Air Impression: Primary Impression: CHF (congestive heart failure) Condition: Condition Unchanged Disposition: HOME OR SELF-CARE Referrals: OZ DENIS MD (PCP) New Scripts Furosemide (LASIX) 40 Mg Tablet 1 TAB PO DAILY for 30 Days, #30 TAB Prov: AKILA AGOSTO 10/25/17 Patient Instructions: Heart Failure (ED) Additional Instructions: Monitor fluids. Have your weight checked daily. Follow up with Dr. Denis at that the end of this week. Return to the ER if condition worsens; ie increased weight of greater than 2 pounds, increased shortness of breath. Continue with your current medications. Problem Qualifiers Primary Impression: CHF (congestive heart failure) Heart failure type: unspecified Heart failure chronicity: chronic Qualified Codes: I50.9 - Heart failure, unspecified AKILA AGOSTO October 25, 2017 18:54
[2017-10-25 18:55] VITALS: BP 124/89
[2017-10-25] MEDS ORDERED: IOPAMIDOL 76% 75 ML INFUS BTL 75 ML ONE (19:17)
[2017-10-25 19:19] LABS: PLATELET COUNT, AUTOMATED 265 K/uL (150-450)
--- NOTE | 2017-10-25 19:42 | EKG ---
FACILITY: [facility] [place] PATIENT NAME: GINA ZUNIGA : [id number] MR: [id number] V: [id number] EXAM DATE: ORDERING PHYSICIAN: AKILA AGOSTO TECHNOLOGIST: CHANNING Test Reason : EDEMA Blood Pressure : / mmHG Vent. Rate : 102 BPM Atrial Rate : 102 BPM P-R Int : 138 ms QRS Dur : 082 ms QT Int : 308 ms P-R-T Axes : 071 -04 060 degrees QTc Int : 401 ms Sinus rhythm with frequent premature ventricular complexes/fusion beats Low voltage QRS Nonspecific T wave abnormality Abnormal ECG Confirmed by ANA PATE ([id number]) on 10/26/2017 5:45:25 AM Referred By: Confirmed By:ANA PATE
[2017-10-25 20:02] LABS: INR 2.97
--- NOTE | 2017-10-25 20:28 | RADIOLOGY IMAGING REPORT ---
[place] [facility] [place] Breanna Schwab : 1935 MR: [id number] V: [id number] EXAM DATE: ORDERING PHYSICIAN: AKILA AGOSTO TECHNOLOGIST: [facility] Patient: Breanna Schwab : 1935 Visit/Account:[id number] Date of Sevice: 10/25/2017 Chest 2 views: HISTORY: Abdominal pain, edema. COMPARISON: 08/15/2017 FINDINGS: Heart is enlarged and there is mild prominence of the central vasculature. Interstitial mar kings are mildly prominent but appears somewhat improved radiographically when compared to previous. There is scarring in the left lung base and left lateral pleural space which is unchanged. Right lung is clear. There is no pleural effusion or pneumothorax. No evidence of overt congestive heart failur e. Degenerative changes are present in the thoracic spine. IMPRESSION: 1. Mild cardiomegaly and vascular congestion without evidence of overt congestive heart failure. 2. Stable pleural parenchymal abnormalities, left lung base. Report Dictated By: Yesenia Mar MD at 10/25/2017 8:22 PM Report E-Signed By: Yesenia Mar MD at 10/25/2017 8:24 PM WSN:[id number]
--- NOTE | 2017-10-25 20:42 | RADIOLOGY IMAGING REPORT ---
[place] [facility] [place] NAME: Breanna Schwab : 1935 MR: [id number] V: [id number] EXAM DATE: ORDERING PHYSICIAN: AKILA AGOSTO TECHNOLOGIST: Location: [facility] Patient: Breanna Schwab : 1935 Visit/Account:[id number] Date of Sevice: 10/25/2017 EXAMINATION: CT abdomen with IV contrast CT pelvis with IV contrast HISTORY: Abdominal pain. TECHNIQUE: Spiral scan was through the abdomen and pelvis during injection of nonionic iodinated in travenous contrast. Sagittal and coronal reformatted images are also submitted. One of the following dose optimization techniques was utilized in the performance of this exam: Autom ated exposure control; adjustment of the mA and/or kV according to the patient's size; or use of an i terative reconstruction technique. Specific details can be referenced in the facility's radiology C T exam operational policy. CONTRAST: 75 mL of IV Isovue-370 COMPARISON: Chest, abdomen, and pelvis CT dated 07/16/2017. FINDINGS: Lower chest: Partially imaged pleural thickening and pleural gas in the left lung base. Small right p leural effusion. No significant change. Liver / biliary: Heterogeneous hepatic enhancement with no definite focal mass. No dilated bile ducts . Gallbladder is unremarkable. Pancreas: Negative. Spleen: Calcified granulomas. Stable small cyst in the superior spleen. Adrenal glands: Negative. Kidneys: Stable small bilateral renal cysts. Pelvic structures: Hysterectomy. Otherwise negative. Bowel: Postsurgical changes in the distal small bowel and distal colon. No obstruction or bowel wall thickening. Peritoneum / retroperitoneum / mesenteries: Mild free fluid in the pelvis, increased compared with 07/16/2017. No free air. Vessels: Severe aortoiliac calcification without aneurysm. Musculoskeletal / Body wall: Moderate to severe bilateral hip osteoarthritis. Multilevel degenerative disc disease and facet hypertrophy in the thoracolumbar spine with grade 1 anterior listhesis of L4 over L5. Diffuse subcutaneous edema suspicious for anasarca. Lymph node assessment: Negative. IMPRESSION: 1. Heterogeneous hepatic enhancement with no definite focal mass. This could be secondary to diffuse liver disease or may be related to contrast timing given that this is predominantly in the arterial p hase. Metastasis is also possible. Close attention on follow-up imaging is recommended. 2. Diffuse subcutaneous edema suspicious for anasarca. 3. Mild free fluid in the pelvis, slightly increased compared with 07/16/2017. Report Dictated By: Neville Ocasio MD at 10/25/2017 8:29 PM Report E-Signed By: Neville Ocasio MD at 10/25/2017 8:37 PM WSN:[id number]
[2017-10-25] MEDS ORDERED: FURO40TA35 PO (21:14)
[2017-10-25] MEDS ORDERED: FUROSEMIDE 40 MG TAB PO ONE (21:20)
[2017-10-26] MEDS ORDERED: WARF5TAB23 PO (14:11)
== END 2017-10-25 21:38 | disposition home or self-care (01) ==
LOC: ER 19:17
DX: I50.9 Heart failure, unspecified (principal)
CPT/HCPCS: 71046; 74177; 82150; 83690; 83880; 84484; 85025; 85610; 85730; 86140; 93005; 99284; A4353; A9270; Q9967; 82040; 82247; 82310; 82374; 82435; 82565; 82947; 84075; 84132; 84155; 84295; 84450; 84460; 84520

== ENCOUNTER 2017-10-26 12:07 | Inpatient (IN) | payer MEDICARE, BC, MEDICAID ==
[~2017-10-26] VITALS: Ht 152.4 cm; Wt 74.8 kg
--- NOTE | 2017-10-26 12:20 | ER Report ---
History and Physical Time Seen By MD: 12:16 HPI/ROS CHIEF COMPLAINT: Abdominal pain, lower extremity edema HISTORY OF PRESENT ILLNESS: This is an 82-year-old female, who was seen in the emergency department yesterday and diagnosed with CHF, returns today for lower sternal he edema and abdominal pain. The patient was evaluated and discharged from the emergency department yesterday for congestive heart failure, was given a prescription for Lasix however the patient and the daughter state that she is unable to take the Lasix and unable to take her regular medications due severe nausea today. Patient states she is unable to take her regular medications today as well secondary to the nausea. They're concerned that the CHF will continue to worsen, and are hoping for an admission for CHF exacerbation today. Patient denies chest pain, shortness of breath, no rashes or headaches no aches or chills. REVIEW OF SYSTEMS: Constitutional: No fever, no chills. Eyes: No discharge. ENT: No sore throat. Cardiovascular: No chest pain, no palpitations. Respiratory: No cough, no shortness of breath. Gastrointestinal: As above. Genitourinary: No hematuria. Musculoskeletal: As above. Skin: No rashes. Neurological: No headache. Allergies: Coded Allergies: No Known Drug Allergies (Unverified , 10/25/17) Home Meds Active Scripts Furosemide (LASIX) 40 Mg Tablet, 1 TAB PO DAILY for 30 Days, #30 TAB Prov:TRINYAKILA [facility] 10/25/17 Atorvastatin Calcium (ATORVASTATIN CALCIUM) 10 Mg Tablet, 1 TAB PO QODAY for 90 Days, #45 TAB 4 Refills Prov:ZO DENIS MD 10/20/17 Prazosin Hcl (PRAZOSIN HCL) 1 Mg Capsule, 1 TAB PO DAILY for 90 Days, #90 CAPSULE 4 Refills Prov:ZO DENIS MD 10/13/17 Duloxetine Hcl (CYMBALTA) 60 Mg Capsule.dr, 60 MG PO QAM for 90 Days, #90 CAP Prov:ZO DENIS MD 10/06/17 Duloxetine Hcl (CYMBALTA) 30 Mg Capsule.dr, 30 MG PO QDAY for 30 Days, #30 CAP Prov:ZO DENIS MD 10/06/17 Gabapentin (GABAPENTIN) 100 Mg Capsule, 2 TAB PO BID, #180 CAPSULE 5 Refills Prov:ZO DENIS MD 09/16/17 Folic Acid (FOLIC ACID) 1 Mg Tablet, 1 TAB PO QDAY for 90 Days, #90 TAB 4 Refills Prov:ZO DENIS MD 09/08/17 Acetaminophen (ACETAMINOPHEN) 500 Mg Tablet, 2 TAB PO TID, #270 TAB Prov:ZO DENIS MD 09/08/17 Oxycodone Hcl/Acet 5/325 Mg (ENDOCET 5-325 TABLET) 1 Each Tablet, 1 TAB PO Q4H Y for PAIN, #20 TAB 0 Refills Prov:JEAN PITTMAN MD 08/26/17 Guaifenesin (MUCINEX) 600 Mg Tablet.er, 1 TAB PO BID, #30 TAB 3 Refills Prov:JEAN PITTMAN MD 08/18/17 Simethicone (SIMETHICONE) 125 Mg Tab.chew, 1 TAB PO TIDPC Y for GAS, #90 TAB.CHEW 5 Refills Please offer after meals pt may not remember to ask but does not need to take if not having problems with gas Prov:VELIA MCMANUS APRNP-C 08/09/17 Levothyroxine Sodium (SYNTHROID) 25 Mcg Tablet, 1 TAB PO QDAY, #90 TAB 1 Refill Prov:VELIA MCMANUS APRNP-C 07/30/17 Cholecalciferol (Vitamin D3) (VITAMIN D3) 2,000 Unit Capsule, 1 CAP PO DAILY, # 90 CAP 3 Refills Prov:VELIA MCMANUS APRN [employer]-C 07/30/17 Omeprazole (OMEPRAZOLE) 20 Mg Capsule.dr, 1 CAP PO QDAY, #90 CAP 3 Refills Prov:VELIA MCMANUS APRN [employer] 04/07/17 Vitamin B Complex (VITAMIN B COMPLEX) 1 Each Capsule, 1 EACH PO BID, #180 CAPSULE 1 Refill Prov:VELIA MCMANUS APRN [employer]-C 07/15/16 Reported Medications Warfarin Sodium (WARFARIN SODIUM) 5 Mg Tablet, 2.5 MG PO QDAY, TAB 10/26/17 Oxygen (OXYGEN) Inha, 2 L INH DAILY, L 09/08/17 Ipratropium/Albuterol Sulfate (IPRAT-ALBUT 0.5-3(2.5) MG/3 ML) 3 Ml Ampul.neb, 3 ML IH Q6H Y for SHORTNESS OF BREATH 08/19/17 Phenylephrine Hcl (SUDOGEST PE) 10 Mg Tablet, 10 MG PO Q8H Y for CONGESTION 08/19/17 Calcium Carbonate (ANTACID) 300 Mg Tab.chew, 2 TAB PO Q2H Y for REFLUX, TAB.CHEW 08/19/17 Magnesium Hydroxide (MILK OF MAGNESIA) 400 Mg/5 Ml Oral.susp, 15-30 ML PO Q12H Y for CONSTIPATION, BOTTLE 08/19/17 Guaifenesin/Dextromethorphan (Robitussin Cough-Chest Dm Liq) 100 Mg-5 Mg/5 Ml Liquid, 2 TSP PO Q6H Y for COUGH 08/19/17 Dextran 70/Hypromellose (ARTIFICIAL TEARS) 1 Each Droperette, 1 EACH OP PRN Y for DRY EYES 08/19/17 Warfarin Sodium (WARFARIN SODIUM) 5 Mg Tablet, 5 MG PO QDAY, TAB 08/19/17 Polyethylene Glycol 3350 (MIRALAX) 17 Gm Powd.pack, 17 GM PO BID, PKT 08/19/17 Melatonin (MELATONIN) 5 Mg Tablet, 5 MG PO HS 08/19/17 Past Medical/Surgical History Patient has a past medical and surgical history of of CVA, TIA, dementia, [place], DVT, irregular heartbeat, adenocarcinoma, hepatitis, reflux, liver disease, incontinence, arthritis, fractures, hypothyroidism, depression, cataract surgery , hysterectomy, bowel surgery. Reviewed Nurses Notes: Yes Hx Smoking: Yes Smoking Status: Former Smoker Hx Substance Use Disorder: No Hx Alcohol Use: No Constitutional Vital Sign - Last 24 Hours 10/26/17 10/26/17 10/26/17 10/26/17 12:07 12:16 12:20 12:22 Temp 97.8 Pulse ??? 101 102 Resp 16 21 B/P (MAP) 119/75 (90) 119/75 Pulse Ox 93 92 O2 Delivery Room Air 10/26/17 10/26/17 10/26/17 10/26/17 12:33 12:37 12:52 13:00 Pulse 102 102 Resp 89 12 B/P (MAP) 113/83 (93) 125/72 (89) Pulse Ox 91 90 10/26/17 10/26/17 10/26/17 10/26/17 13:07 13:22 13:37 13:52 Pulse 89 101 99 100 Resp 28 13 11 41 Pulse Ox 96 98 100 99 10/26/17 10/26/17 10/26/17 10/26/17 13:57 14:12 14:27 14:27 Pulse 101 100 99 Resp 13 23 10 Pulse Ox 98 100 100 O2 Flow Rate 2.0 10/26/17 10/26/17 10/26/17 10/26/17 14:42 14:48 14:57 15:00 Pulse 99 101 Resp 14 10 B/P (MAP) 156/144 (148) 137/82 (100) Pulse Ox 98 95 10/26/17 10/26/17 10/26/17 15:12 15:27 15:30 Pulse 101 100 Resp 30 18 B/P (MAP) 136/124 (128) Pulse Ox 95 96 Intake and Output 10/26/17 10/26/17 10/27/17 15:00 23:00 07:00 Output Total 100 ml Balance -100 ml Physical Exam General Appearance: The patient is alert, has no immediate need for airway protection and no signs of toxicity. Eyes: Pupils equal and round no pallor or injection. ENT, Mouth: Mucous membranes are dry, geographic tongue. Respiratory: There are no retractions, rhonchorous lung sounds mid left lobe. Otherwise clear. Cardiovascular: Regular rate and rhythm, systolic murmur, no clicks or rubs. 2+ pitting edema to bilateral lower extremities up to the knees bilaterally, nonpitting edema to the upper legs The left lower leg is larger than the right. Gastrointestinal: Abdomen is soft and diffusely tender, no masses, bowel sounds normal. Neurological: Alert and oriented 4. Moving all extremities. Following all commands. No focal neuro deficits. Skin: Warm and dry, no rashes. Musculoskeletal: Neck is supple non tender. Extremities are tender with deep palpation, edema to bilateral lower extremities and have full range of motion. DIFFERENTIAL DIAGNOSIS: After history and physical exam differential diagnosis was considered for shortness of breath including but not limited to pulmonary infectious process, COPD, asthma, pulmonary embolus and congestive heart failure. Medical Decision Making Data Points Result Diagram: 10/26/17 1245 10/26/17 1333 Laboratory Hematology Test 10/26/17 12:45 10/26/17 13:14 10/26/17 13:33 Red Blood Count 4.62 M/uL (4.17-5.56) Mean Corpuscular Volume 73.4 fL (80.0-96.0) Mean Corpuscular Hemoglobin 22.7 pg (26.0-33.0) Mean Corpuscular Hemoglobin Concent 30.9 g/dL (32.0-36.0) Red Cell Distribution Width 22.0 % (11.5-14.5) Mean Platelet Volume 8.5 fL (7.2-11.1) Neutrophils (%) (Auto) 75.4 % (39.4-72.5) Lymphocytes (%) (Auto) 9.0 % (17.6-49.6) Monocytes (%) (Auto) 14.6 % (4.1-12.4) Eosinophils (%) (Auto) 0.1 % (0.4-6.7) Basophils (%) (Auto) 0.9 % (0.3-1.4) Nucleated RBC Relative Count (auto) 0.5 /100WBC Neutrophils # (Auto) 7.0 K/uL (2.0-7.4) Lymphocytes # (Auto) 0.8 K/uL (1.3-3.6) Monocytes # (Auto) 1.4 K/uL (0.3-1.0) Eosinophils # (Auto) 0.0 K/uL (0.0-0.5) Basophils # (Auto) 0.1 K/uL (0.0-0.1) Nucleated RBC Absolute Count (auto) 0.04 K/uL B-Type Natriuretic Peptide 1560 pg/ml (0-100) Urine Color [place] Urine Clarity Slightly-cloudy Urine pH 5.0 pH (4.8-9.5) Urine Specific [place] 1.048 Urine Protein 100 mg/dL (NEGATIVE) Urine Glucose (UA) Negative mg/dL (NEGATIVE) Urine Ketones Negative mg/dL (NEGATIVE) Urine Blood Negative (NEGATIVE) Urine Nitrite Negative (NEGATIVE) Urine Bilirubin Negative (NEGATIVE) Urine Urobilinogen 2.0 mg/dL (0.2-1.9) Urine Leukocyte Esterase Negative (NEGATIVE) Urine RBC 1 /HPF (0-2/HPF) Urine WBC 2 /HPF (0-5/HPF) Urine Squamous Epithelial Cells Moderate /LPF (NONE-FEW) Urine Bacteria Few /HPF (NONE-FEW) Urine Hyaline Casts Few /LPF (NONE-FEW) Urine Mucus Few /HPF (NONE-FEW) Sodium Level 139 mmol/L (137-145) Potassium Level 4.7 mmol/L (3.5-5.0) Chloride Level 101 mmol/L (98-107) Carbon Dioxide Level 19 mmol/L (22-31) Blood Urea Nitrogen 19 mg/dl (7-18) Creatinine 1.40 mg/dl (0.52-1.04) Glomerular Filtration Rate Calc 36.0 Random Glucose 106 mg/dl (75-110) Calcium Level 9.2 mg/dl (8.4-10.2) Total Bilirubin 2.4 mg/dl (0.2-1.3) Aspartate Amino Transf (AST/SGOT) 1123 U/L (0-35) Alanine Aminotransferase (ALT/SGPT) 572 U/L (0-56) Alkaline Phosphatase 115 U/L (0-126) Total Creatine Kinase 244 U/L (30-135) Total Protein 6.0 gm/dl (6.3-8.2) Albumin 3.8 g/dl (3.5-5.0) Amylase Level < 30 U/L (0-110) Lipase 61 U/L (23-300) Acetaminophen Level < 10 ug/ml Chemistry Test 10/26/17 12:45 10/26/17 13:14 10/26/17 13:33 White Blood Count 9.3 k/uL (4.5-11.0) Red Blood Count 4.62 M/uL (4.17-5.56) Hemoglobin 10.5 g/dL (12.0-16.0) Hematocrit 33.9 % (34.0-47.0) Mean Corpuscular Volume 73.4 fL (80.0-96.0) Mean Corpuscular Hemoglobin 22.7 pg (26.0-33.0) Mean Corpuscular Hemoglobin Concent 30.9 g/dL (32.0-36.0) Red Cell Distribution Width 22.0 % (11.5-14.5) Platelet Count 270 K/uL (150-450) Mean Platelet Volume 8.5 fL (7.2-11.1) Neutrophils (%) (Auto) 75.4 % (39.4-72.5) Lymphocytes (%) (Auto) 9.0 % (17.6-49.6) Monocytes (%) (Auto) 14.6 % (4.1-12.4) Eosinophils (%) (Auto) 0.1 % (0.4-6.7) Basophils (%) (Auto) 0.9 % (0.3-1.4) Nucleated RBC Relative Count (auto) 0.5 /100WBC Neutrophils # (Auto) 7.0 K/uL (2.0-7.4) Lymphocytes # (Auto) 0.8 K/uL (1.3-3.6) Monocytes # (Auto) 1.4 K/uL (0.3-1.0) Eosinophils # (Auto) 0.0 K/uL (0.0-0.5) Basophils # (Auto) 0.1 K/uL (0.0-0.1) Nucleated RBC Absolute Count (auto) 0.04 K/uL B-Type Natriuretic Peptide 1560 pg/ml (0-100) Urine Color [place]ena Urine Clarity Slightly-cloudy Urine pH 5.0 pH (4.8-9.5) Urine Specific [place] 1.048 Urine Protein 100 mg/dL (NEGATIVE) Urine Glucose (UA) Negative mg/dL (NEGATIVE) Urine Ketones Negative mg/dL (NEGATIVE) Urine Blood Negative (NEGATIVE) Urine Nitrite Negative (NEGATIVE) Urine Bilirubin Negative (NEGATIVE) Urine Urobilinogen 2.0 mg/dL (0.2-1.9) Urine Leukocyte Esterase Negative (NEGATIVE) Urine RBC 1 /HPF (0-2/HPF) Urine WBC 2 /HPF (0-5/HPF) Urine Squamous Epithelial Cells Moderate /LPF (NONE-FEW) Urine Bacteria Few /HPF (NONE-FEW) Urine Hyaline Casts Few /LPF (NONE-FEW) Urine Mucus Few /HPF (NONE-FEW) Glomerular Filtration Rate Calc 36.0 Calcium Level 9.2 mg/dl (8.4-10.2) Total Bilirubin 2.4 mg/dl (0.2-1.3) Aspartate Amino Transf (AST/SGOT) 1123 U/L (0-35) Alanine Aminotransferase (ALT/SGPT) 572 U/L (0-56) Alkaline Phosphatase 115 U/L (0-126) Total Creatine Kinase 244 U/L (30-135) Total Protein 6.0 gm/dl (6.3-8.2) Albumin 3.8 g/dl (3.5-5.0) Amylase Level < 30 U/L (0-110) Lipase 61 U/L (23-300) Acetaminophen Level < 10 ug/ml Toxicology Test 10/26/17 13:33 Acetaminophen Level < 10 ug/ml Urinalysis Test 10/26/17 13:14 Urine Color Leena Urine Clarity Slightly-cloudy Urine pH 5.0 pH (4.8-9.5) Urine Specific [place] 1.048 Urine Protein 100 mg/dL (NEGATIVE) Urine Glucose (UA) Negative mg/dL (NEGATIVE) Urine Ketones Negative mg/dL (NEGATIVE) Urine Blood Negative (NEGATIVE) Urine Nitrite Negative (NEGATIVE) Urine Bilirubin Negative (NEGATIVE) Urine Urobilinogen 2.0 mg/dL (0.2-1.9) Urine Leukocyte Esterase Negative (NEGATIVE) Urine RBC 1 /HPF (0-2/HPF) Urine WBC 2 /HPF (0-5/HPF) Urine Squamous Epithelial Cells Moderate /LPF (NONE-FEW) Urine Bacteria Few /HPF (NONE-FEW) Urine Hyaline Casts Few /LPF (NONE-FEW) Urine Mucus Few /HPF (NONE-FEW) EKG/Imaging EKG Interpretation 12 lead EKG: Time of EKG 1238 Rhythm: Sinus tachycardia, ventricular rate 102 bpm. With PVCs. [place]: normal QRS: normal ST segments: No ST depression or elevation identified. No significant changes from the 10/25/2017 EKG Imaging Location: [facility] - [place] Patient: Breanna Schwab : 1935 Visit/Account:[id number] Date of Sevice: 10/26/2017 EXAMINATION: Right upper quadrant abdominal ultrasound HISTORY: Elevated ALT/AST. Pain. COMPARISON: CT abdomen/pelvis 10/25/2017. FINDINGS: Liver: The liver parenchyma appears mildly coarsened and heterogeneous. No evidence of any focal liver mass. The hepatic veins are patent. The main portal vein is patent with a pulsatile waveform. Gallbladder: The gallbladder is moderately distended. There is some nonshadowing and nonmobile echogenic material in the gallbladder fundus, likely sludge. No abnormal vascularity with color Doppler. No ultrasound findings to suggest cholecystitis. No gallbladder wall thickening or pericholecystic fluid. Negative sonographic Paredes sign. Bile Ducts: No biliary ductal dilatation. The common duct measures 4 mm. Pancreas: The head and body of the pancreas are segmentally visualized and unremarkable where seen. Right kidney: Normal echogenicity of the right kidney. The renal cortical parenchyma is maintained. No hydronephrosis. The right kidney measures 8.6 cm in length. Small right renal cysts. Aorta: Patent and normal in caliber. IVC: Patent. Ascites: None. IMPRESSION: 1. Liver parenchyma appears mildly heterogeneous. No focal liver mass by ultrasound. 2. The hepatic veins are patent. The main portal vein is patent with a pulsatile waveform. This is likely transmitted in a retrograde manner from the hepatic veins and could be due to right heart dysfunction. 3. There is some nonshadowing and nonmobile echogenic material in the gallbladder fundus, likely sludge. No ultrasound evidence of cholecystitis. 4. No bile duct dilatation. Report Dictated By: Adrian Gary MD at 10/26/2017 2:48 PM Report E-Signed By: Adrian Gary MD at 10/26/2017 3:01 PM WSN:[id number] ED Course/Re-evaluation ED Course The patient was admitted to room. A history and physical were obtained. Differential diagnoses were considered. An IV was started. I repeated the CBC and CMP and BNP. CBC basically unchanged. Negative UA. Chemistry significantly changed With an AST of 964, ALT 498, total bilirubin 2.5, BNP 1560, creatinine 1.4, BUN 19. This was such a significant change from last night's chemistry panel I did repeat the labs which were essentially the same however the AST did bump from 964-1123. The PT and INR that was drawn at [facility] this morning is up INR 4.3, INR last night was 2.97. With the significant change in the chemistry I did a CPK and Tylenol and a gallbladder ultrasound showing patent hepatic veins, patent portal veins, with a pulsatile waveform, according to radiology this could be right heart dysfunction which would fit with the patient 's congestive heart failure. The gallbladder is fundus is also showing sludge no bile duct dilatation. I did review the result with the daughter and the patient. EKG showing sinus tachycardia. The patient did have abdomen pelvis CT last night as well as a chest x-ray did not feel that repeat studies were needed at this time. I did speak with Dr Higgins the hospitalist [facility] operations staff officer who accepted the patient into his services for CHF and elevated LFT's. The patient and her daughter were in agreement with this plan of care and admitted from the ED. Patient had no other needs or concerns at the time of admit. 10/26/2017 1:24:23 pm I did call Dr. Higgins to discuss the patient's possible admission for CHF as well as discussing the case with him lab studies did return the chemistry significantly changed from yesterday, I will repeat the chemistry, and CPK, Tylenol amylase lipase and a gallbladder ultrasound. I did discuss this with the patient and her daughter they're both in agreement with this 10/26/2017 3:22:[address] Higgins did accept the patient into his services. Patient will be admitted to the medical floor. Decision to Disposition Date: October 26, 2017 Decision to Disposition Time: 15:23 Depart Departure Latest Vital Signs Vital Signs Date Time Temp Pulse Resp B/P (MAP) Pulse Ox O2 Delivery O2 Flow Rate FiO2 10/26/17 15:30 136/124 (128) 10/26/17 15:27 100 18 96 10/26/17 14:27 2.0 10/26/17 12:20 97.8 Room Air Impression: Primary Impression: CHF (congestive heart failure) Additional Impression: Elevated LFTs Condition: Improved Disposition: Admitted from ER Referrals: ZO DENIS MD (PCP) Problem Qualifiers Primary Impression: CHF (congestive heart failure) Heart failure type: unspecified Heart failure chronicity: acute Qualified Codes: I50.9 - Heart failure, unspecified KORY GREGORY [employer] October 26, 2017 12:20
--- NOTE | 2017-10-26 12:42 | EKG ---
FACILITY: [facility] - [place] PATIENT NAME: GINA ZUNIGA : [id number] MR: [id number] V: [id number] EXAM DATE: ORDERING PHYSICIAN: KORY GREGORY TECHNOLOGIST: YANNICK Muniz Reason : ABD. PAIN Blood Pressure : / mmHG Vent. Rate : 102 BPM Atrial Rate : 102 BPM P-R Int : 140 ms QRS Dur : 076 ms QT Int : 360 ms P-R-T Axes : 097 003 046 degrees QTc Int : 469 ms Sinus tachycardia with fusion complexes with a PVC Low voltage QRS Cannot rule out Anterior infarct , age undetermined Diffuse, non-specific, T flattening When compared with ECG of 25-OCT-2017 19:14, Relatively unchanged Confirmed by FERNANDO NATH ([id number]) on 10/26/2017 1:03:24 PM Referred By: MATTEO Confirmed By:FERNANDO NATH
[2017-10-26] MEDS ORDERED: ONDANSETRON 4 MG/2 ML VIAL IVP ONE (12:50)
[2017-10-26 12:55] LABS: PLATELET COUNT, AUTOMATED 270 K/uL (150-450)
[2017-10-26] MEDS ORDERED: WARF5TAB23 PO (14:11)
--- NOTE | 2017-10-26 15:04 | RADIOLOGY IMAGING REPORT ---
FACILITY: [facility] - [place] PATIENT NAME: Breanna Schwab : 1935 MR: [id number] V: [id number] EXAM DATE: ORDERING PHYSICIAN: KORY GREGORY TECHNOLOGIST: Location: [facility] - [place], [place] Patient: Breanna Schwab : 1935 Visit/Account:[id number] Date of Sevice: 10/26/2017 EXAMINATION: Right upper quadrant abdominal ultrasound HISTORY: Elevated ALT/AST. Pain. COMPARISON: CT abdomen/pelvis 10/25/2017. FINDINGS: Liver: The liver parenchyma appears mildly coarsened and heterogeneous. No evidence of any focal jacquie er mass. The hepatic veins are patent. The main portal vein is patent with a pulsatile waveform. Gallbladder: The gallbladder is moderately distended. There is some nonshadowing and nonmobile echog enic material in the gallbladder fundus, likely sludge. No abnormal vascularity with color Doppler. N o ultrasound findings to suggest cholecystitis. No gallbladder wall thickening or pericholecystic flu id. Negative sonographic Paredes sign. Bile Ducts: No biliary ductal dilatation. The common duct measures 4 mm. Pancreas: The head and body of the pancreas are segmentally visualized and unremarkable where seen. Right kidney: Normal echogenicity of the right kidney. The renal cortical parenchyma is maintained. N o hydronephrosis. The right kidney measures 8.6 cm in length. Small right renal cysts. Aorta: Patent and normal in caliber. IVC: Patent. Ascites: None. IMPRESSION: 1. Liver parenchyma appears mildly heterogeneous. No focal liver mass by ultrasound. 2. The hepatic veins are patent. The main portal vein is patent with a pulsatile waveform. This is li wolfgang transmitted in a retrograde manner from the hepatic veins and could be due to right heart dysfun ction. 3. There is some nonshadowing and nonmobile echogenic material in the gallbladder fundus, likely slud ge. No ultrasound evidence of cholecystitis. 4. No bile duct dilatation. Report Dictated By: Adrian Gary MD at 10/26/2017 2:48 PM Report E-Signed By: Adrian Gary MD at 10/26/2017 3:01 PM [id number]
[2017-10-26] MEDS ORDERED: INFLUENZA VIRUS VAC 0.5 ML SYR IM ONLY ONE (16:10)
[2017-10-26 16:16] VITALS: BP 126/75
[2017-10-26] MEDS ORDERED: FUROSEMIDE 40 MG/4 ML VIAL IVP ONE (16:30)
--- NOTE | 2017-10-26 17:22 | History & Physical ---
History of Present Illness History of Present Illness 82yo female with CHF, colon cancer and lung cancer who was brought to the ER for worsening edema and difficulty taking pills. She was in the ER yesterday for abdominal pain and worsening edema. She was given a dose of Lasix and sent home with Lasix, but was unable to take the pill because she kept gagging. She has had poor oral intake for the last couple of days. She reports some abdominal pain that is diffuse, but is not able to specify the severity. Apparently, per the ER report, the abdominal pain has been going on for a couple of weeks. The edema was noted by her PCP about a week ago and recommended compression stockings. No diarrhea, new SOB, CP, chills. In the ER, she has received a dose of Zofran. History Problems: (1) Depression Status: Chronic (2) History of colon cancer Status: Chronic (3) History of lung cancer Status: Chronic (4) GI bleed Status: Resolved (5) GERD (gastroesophageal reflux disease) Status: Chronic (6) Dysphagia Onset Date: 09/17/2014 Status: Chronic (7) CHRONIC ATRIAL FIBRILLATION Status: Chronic (8) Deep vein thrombosis (DVT) of left lower extremity (9) S/P partial colectomy Status: Chronic (10) S/P partial lobectomy of lung Status: Chronic (11) History of tonsillectomy (12) History of hysterectomy (13) History of appendectomy Home Meds Active Scripts Furosemide (LASIX) 40 Mg Tablet, 1 TAB PO DAILY for 30 Days, #30 TAB Prov:AKILA AGOSTO [facility] 10/25/17 Atorvastatin Calcium (ATORVASTATIN CALCIUM) 10 Mg Tablet, 1 TAB PO QODAY for 90 Days, #45 TAB 4 Refills Prov:ZO DENIS MD 10/20/17 Prazosin Hcl (PRAZOSIN HCL) 1 Mg Capsule, 1 TAB PO DAILY for 90 Days, #90 CAPSULE 4 Refills Prov:ZO DENIS MD 10/13/17 Duloxetine Hcl (CYMBALTA) 60 Mg Capsule.dr, 60 MG PO QAM for 90 Days, #90 CAP Prov:ZO DENIS MD 10/06/17 Duloxetine Hcl (CYMBALTA) 30 Mg Capsule.dr, 30 MG PO QDAY for 30 Days, #30 CAP Prov:ZO DENIS MD 10/06/17 Gabapentin (GABAPENTIN) 100 Mg Capsule, 2 TAB PO BID, #180 CAPSULE 5 Refills Prov:ZO DENIS MD 09/16/17 Folic Acid (FOLIC ACID) 1 Mg Tablet, 1 TAB PO QDAY for 90 Days, #90 TAB 4 Refills Prov:ZO DENIS MD 09/08/17 Acetaminophen (ACETAMINOPHEN) 500 Mg Tablet, 2 TAB PO TID, #270 TAB Prov:ZO DENIS MD 09/08/17 Oxycodone Hcl/Acet 5/325 Mg (ENDOCET 5-325 TABLET) 1 Each Tablet, 1 TAB PO Q4H Y for PAIN, #20 TAB 0 Refills Prov:JEAN PITTMAN MD 08/26/17 Guaifenesin (MUCINEX) 600 Mg Tablet.er, 1 TAB PO BID, #30 TAB 3 Refills Prov:JEAN PITTMAN MD 08/18/17 Simethicone (SIMETHICONE) 125 Mg Tab.chew, 1 TAB PO TIDPC Y for GAS, #90 TAB.CHEW 5 Refills Please offer after meals pt may not remember to ask but does not need to take if not having problems with gas Prov:VELIA MCMANUS APRNP-C 08/09/17 Levothyroxine Sodium (SYNTHROID) 25 Mcg Tablet, 1 TAB PO QDAY, #90 TAB 1 Refill Prov:VELIA MCMANUS APRNP-C 07/30/17 Cholecalciferol (Vitamin D3) (VITAMIN D3) 2,000 Unit Capsule, 1 CAP PO DAILY, # 90 CAP 3 Refills Prov:VELIA MCMANUS APRN-C 07/30/17 Omeprazole (OMEPRAZOLE) 20 Mg Capsule.dr, 1 CAP PO QDAY, #90 CAP 3 Refills Prov:VELIA MCMANUS APRNP-C 04/07/17 Vitamin B Complex (VITAMIN B COMPLEX) 1 Each Capsule, 1 EACH PO BID, #180 CAPSULE 1 Refill Prov:VELIA MCMANUS APRNP-C 07/15/16 Reported Medications Warfarin Sodium (WARFARIN SODIUM) 5 Mg Tablet, 2.5 MG PO QDAY, TAB 10/26/17 Oxygen (OXYGEN) Inha, 2 L INH DAILY, L 09/08/17 Ipratropium/Albuterol Sulfate (IPRAT-ALBUT 0.5-3(2.5) MG/3 ML) 3 Ml Ampul.neb, 3 ML IH Q6H Y for SHORTNESS OF BREATH 08/19/17 Phenylephrine Hcl (SUDOGEST PE) 10 Mg Tablet, 10 MG PO Q8H Y for CONGESTION 08/19/17 Calcium Carbonate (ANTACID) 300 Mg Tab.chew, 2 TAB PO Q2H Y for REFLUX, TAB.CHEW 08/19/17 Magnesium Hydroxide (MILK OF MAGNESIA) 400 Mg/5 Ml Oral.susp, 15-30 ML PO Q12H Y for CONSTIPATION, BOTTLE 08/19/17 Guaifenesin/Dextromethorphan (Robitussin Cough-Chest Dm Liq) 100 Mg-5 Mg/5 Ml Liquid, 2 TSP PO Q6H Y for COUGH 08/19/17 Dextran 70/Hypromellose (ARTIFICIAL TEARS) 1 Each Droperette, 1 EACH OP PRN Y for DRY EYES 08/19/17 Warfarin Sodium (WARFARIN SODIUM) 5 Mg Tablet, 5 MG PO QDAY, TAB 08/19/17 Polyethylene Glycol 3350 (MIRALAX) 17 Gm Powd.pack, 17 GM PO BID, PKT 08/19/17 Melatonin (MELATONIN) 5 Mg Tablet, 5 MG PO HS 08/19/17 Allergies: Coded Allergies: No Known Drug Allergies (Unverified , 10/25/17) Patient History: Aneurysm FATHER, , Age:50's - 60 FH: breast cancer BROTHER OR SISTER FH: stroke FH: stroke FH: stroke FH: stroke FHx: colon cancer BROTHER OR SISTER, , Age:60 years and older GERD GERD Hypertension Hypertension MS (multiple sclerosis) BROTHER OR SISTER, , Age:41 Other Social/Family Hx She quit smoking two to three years ago after a half pack a day for over fifty years. Denies any abuse of alcohol or drugs. Lives at [facility]. Hx Smoking: Yes Smoking Status: Former Smoker Caffeine Intake: Coffee, Tea Caffeine/Cups Per Day: DECAF Hx Alcohol Use: No Hx Substance Use Disorder: No Social Drug Use: Never Review of Systems All Systems Reviewed/Normal: Yes, Except as Noted Exam Vital Signs Vital Signs Date Time Temp Pulse Resp B/P (MAP) Pulse Ox O2 Delivery O2 Flow Rate FiO2 10/26/17 16:16 97.6 99 16 126/75 (92) 98 Nasal Cannula 1.0 General Appearance: Alert, Awake, No Acute Distress Neuro: No Gross deficits (but difficult to understand. Answers questions appropriately. Knows where she is.) Cardiovascular: Regular Rate and Rhythm (2/6 systolic murmur on left parasternal border at 4-5 interspace. Borderline tachy.) Respiratory: Clear to Auscultation GI: Other (Soft, non-distended, mild pain with RUQ palpation.) Extremities: Edema (2+ pitting to knees bilaterally) Integumentary: No Jaundice, No Cyanosis Medical Decision Making Data Points Result Diagram: 10/26/17 1245 10/26/17 1333 Item Value Date Time Hemoglobin 9.6 g/dL L 10/12/17 0758 Hemoglobin 10.7 g/dL L 10/25/17 1900 Hemoglobin 10.5 g/dL L 10/26/17 1245 Mean Corpuscular Volume 73.4 fL L 10/26/17 1245 Mean Corpuscular Volume 72.9 fL L 10/25/17 1900 Mean Corpuscular Volume 74.1 fL L 09/21/17 0000 Hemoglobin 9.8 g/dL L 09/21/17 0000 Platelet Count 270 K/uL 10/26/17 1245 Platelet Count 265 K/uL 10/25/17 1900 Neutrophils (%) (Auto) 75.4 % H 10/26/17 1245 Lymphocytes (%) (Auto) 9.0 % L 10/26/17 1245 Monocytes (%) (Auto) 14.6 % H 10/26/17 1245 Prothromb Time International Ratio 4.30 10/26/17 0723 Prothromb Time International Ratio 2.97 10/25/17 1900 Creatinine 1.10 mg/dl H 08/16/17 0500 Creatinine 1.20 mg/dl H 09/21/17 0000 Creatinine 1.10 mg/dl H 10/25/17 1900 Total Bilirubin 0.8 mg/dl 09/21/17 0000 Total Bilirubin 1.4 mg/dl H 10/25/17 1900 Aspartate Amino Transf (AST/SGOT) 40 U/L H 09/21/17 0000 Aspartate Amino Transf (AST/SGOT) 50 U/L H 10/25/17 1900 Alanine Aminotransferase (ALT/SGPT) 46 U/L 09/21/17 0000 Alkaline Phosphatase 108 U/L 09/21/17 0000 Alkaline Phosphatase 132 U/L H 10/25/17 1900 Alanine Aminotransferase (ALT/SGPT) 46 U/L 10/25/17 1900 B-Type Natriuretic Peptide 1800 pg/ml H 10/25/17 1900 C-Reactive Protein 1.7 mg/dl H 10/25/17 1900 Aspartate Amino Transf (AST/SGOT) 964 U/L H 10/26/17 1245 Alanine Aminotransferase (ALT/SGPT) 498 U/L H 10/26/17 1245 Total Bilirubin 2.5 mg/dl H 10/26/17 1245 Total Bilirubin 2.4 mg/dl H 10/26/17 1333 Aspartate Amino Transf (AST/SGOT) 1123 U/L H 10/26/17 1333 Alanine Aminotransferase (ALT/SGPT) 572 U/L H 10/26/17 1333 Total Creatine Kinase 244 U/L H 10/26/17 1333 Troponin I 0.037 ng/ml 10/25/17 1900 B-Type Natriuretic Peptide 1560 pg/ml H 10/26/17 1245 Blood Urea Nitrogen 19 mg/dl H 10/26/17 1245 Creatinine 1.40 mg/dl H 10/26/17 1245 Blood Urea Nitrogen 19 mg/dl H 10/26/17 1333 Creatinine 1.40 mg/dl H 10/26/17 1333 Urine RBC 1 /HPF 10/26/17 1314 Urine WBC 2 /HPF 10/26/17 1314 Urine Squamous Epithelial Cells Moderate /LPF H 10/26/17 1314 Urine Protein 100 mg/dL 10/26/17 1314 Acetaminophen Level < 10 ug/ml 10/26/17 1333 EKG / Imaging EKG Interpretation Vent. Rate : 102 BPM Atrial Rate : 102 BPM P-R Int : 140 ms QRS Dur : 076 ms QT Int : 360 ms P-R-T Axes : 097 003 046 degrees QTc Int : 469 ms Sinus tachycardia with fusion complexes with a PVC Low voltage QRS Cannot rule out Anterior infarct , age undetermined Diffuse, non-specific, T flattening When compared with ECG of 25-OCT-2017 19:14, Relatively unchanged Confirmed by FERNANDO NATH ([id number]) on 10/26/2017 1:03:24 PM Imaging 10/25/17 Abd/Pelvis CT - 1. Heterogeneous hepatic enhancement with no definite focal mass. This could be secondary to diffuse liver disease or may be related to contrast timing given that this is predominantly in the arterial phase. Metastasis is also possible. Close attention on follow-up imaging is recommended. 2. Diffuse subcutaneous edema suspicious for anasarca. 3. Mild free fluid in the pelvis, slightly increased compared with 07/16/2017. 10/26/17 Gallbladder US - 1. Liver parenchyma appears mildly heterogeneous. No focal liver mass by ultrasound. 2. The hepatic veins are patent. The main portal vein is patent with a pulsatile waveform. This is likely transmitted in a retrograde manner from the hepatic veins and could be due to right heart dysfunction. 3. There is some nonshadowing and nonmobile echogenic material in the gallbladder fundus, likely sludge. No ultrasound evidence of cholecystitis. 4. No bile duct dilatation. Assessment and Plan Problems: (1) Elevated LFTs Status: Acute Assessment & Plan: She presented with a couple days of abdominal pain and 1 day dramatic increase in AST/ALT. The etiology is unclear, but she does have an abnormal nonmobile material in the gallbladder and the liver is mildly heterogenous. The hepatic and portal veins are patent. APAP level is normal. Will check for viral hepatitis. Will follow closely. (2) CHF (congestive heart failure) Status: Acute Assessment & Plan: Echo in 2016 showed an EF of 67%, RVSP of 68mmHg, and moderate to borderline severe [place]. She has been having worsening LE edema for a couple of weeks. She persistently has an elevated BNP back to 2016 (ranges from [phone]). She will get daily wts, low sodium diet, fluid restricted, an echo and one dose of Lasix. (3) ARF (acute renal failure) Status: Acute Assessment & Plan: Baseline creatinine is 1.1. But today, it increased to 1.4. If related, to CHF exacerbation, diuresis should help. Will follow. 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 Repeat antiphospholipid antibody testing came back negative. Patient had two episodes of blood clotting. Supratherapeutic on warfarin. Daily INR and hold warfarin. (5) CHRONIC ATRIAL FIBRILLATION Status: Chronic Assessment & Plan: Currently in a sinus rhythm. Will follow on telemetry. Not on any medication for rate or rhythm control. Chronically on warfarin. See above. 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 Lymph nodes were not involved. Repeat CT scan January 06, 2016 did not show any change. The 2-3 mm noncalcified nodule in the posterior aspect of the right upper lobe and the right lower lobe remained unchanged. (7) History of colon cancer Status: Chronic Assessment & Plan: Resection with ileostomy placement and the reversal in 2015. Copies to: ZO DENIS MD Venous Thromboembolism Antithrombotics Is Pt On Any Antithrombotics?: Yes Exam Sepsis Risk: No Definite Risk Problem Qualifiers (1) CHF (congestive heart failure): Heart failure type: unspecified Heart failure chronicity: acute Qualified Codes: I50.9 - Heart failure, unspecified FERNANDO NATH MD October 26, 2017 17:22
[2017-10-26] MEDS ORDERED: ONDANSETRON 4 MG/2 ML VIAL IVP PRN (17:30)
[2017-10-26] MEDS ORDERED: MORPHINE 2 MG/ML SYR IVP PRN (19:10)
[2017-10-26 19:46] VITALS: BP 111/71
[2017-10-26] MEDS: MELATONIN 3 MG TAB PO SCH (20:55)
[2017-10-26] MEDS: NYSTATIN 100,000 U/GM PWD 15GM TP SCH (20:55)
[2017-10-26] MEDS ORDERED: GABAPENTIN 100 MG CAP PO SCH (21:00)
[2017-10-26] MEDS ORDERED: PRAZOSIN HCL 1 MG CAP PO SCH (21:00)
[2017-10-27 02:52] VITALS: BP 117/47
[2017-10-27] MEDS: LEVOTHYROXINE SOD 0.025 MG TAB PO SCH (05:31)
[2017-10-27 06:18] LABS: INR 7.55
[2017-10-27 06:26] LABS: PLATELET COUNT, AUTOMATED 222 K/uL (150-450)
[2017-10-27 07:13] VITALS: BP 130/85
[2017-10-27 08:33] VITALS: Ht 152.4 cm; Wt 74.8 kg
[2017-10-27] MEDS: NYSTATIN 100,000 U/GM PWD 15GM TP SCH ×2 (08:34→21:14)
[2017-10-27] MEDS: PANTOPRAZOLE SOD 40 MG TABEC PO SCH (09:00)
[2017-10-27] MEDS ORDERED: PHYTONADIONE 10 MG/ML AMP SC ONE (09:00)
[2017-10-27] MEDS ORDERED: D5W IV ONE ×3 (09:15→14:30)
[2017-10-27] MEDS ORDERED: ACETYLCYS IV ONE ×3 (09:15→14:30)
[2017-10-27] MEDS ORDERED: NS(*) 0.9% 250 ML BAG 250 ML ONE (10:29)
--- NOTE | 2017-10-27 11:51 | Hospitalist Progress Note ---
Subjective Progress Notes Subjective She does awaken and answer simple questions with garbled voice. Her liver function tests have worsened significantly in past 24 hours. Physical Exam Vital Signs Date Time Temp Pulse Resp B/P (MAP) Pulse Ox O2 Delivery O2 Flow Rate FiO2 10/27/17 08:21 90 Nasal Cannula 1.0 10/27/17 07:13 97.6 98 18 130/85 (100) General Appearance: Other (somnolent, but did awaken to voice and answered a few simple questions) Neuro: Other (she does move all four extremities) ENT: Oropharynx Clear Neck: Other (+JVD and significant HJR) Cardiovascular: Other (Irregular with distant tones) Respiratory: Other (essentially clear) GI: Other (soft/BS present/mild tenderness over RUQ with deep palpation) Extremities: Warm, Perfused, Edema Result Diagram: 10/27/17 0531 10/27/17 0531 Item Value Date Time Albumin 3.5 g/dl 10/27/17 0531 Total Protein 5.5 gm/dl L 10/27/17 0531 B-Type Natriuretic Peptide 1750 pg/ml H 10/27/17 0531 Total Creatine Kinase 840 U/L H 10/27/17 0531 Alkaline Phosphatase 118 U/L 10/27/17 0531 Alanine Aminotransferase (ALT/SGPT) 1457 U/L H 10/27/17 0531 Aspartate Amino Transf (AST/SGOT) 3169 U/L H 10/27/17 0531 Total Bilirubin 2.4 mg/dl H 10/27/17 0531 Ammonia 15 UMOL/L 10/27/17 0531 Calcium Level 9.5 mg/dl 10/27/17 0531 Random Glucose 95 mg/dl 10/27/17 0531 Troponin I 0.101 ng/ml 10/27/17 0534 Prothromb Time International Ratio 7.55 *H 10/27/17 0531 Prothromb Time International Ratio 4.30 10/26/17 0723 Prothromb Time International Ratio 2.97 10/25/17 1900 Activated Partial Thromboplast Time 45 seconds H 10/25/17 1900 Prothrombin Time 32.0 seconds H 10/25/17 1900 Prothrombin Time 43.2 seconds H 10/26/17 0723 Prothrombin Time 68.3 seconds H 10/27/17 0531 Acetaminophen Level < 10 ug/ml 10/26/17 1333 Assessment and Plan Problems: (1) Elevated LFTs Status: Acute Assessment & Plan: She presented with a couple days of abdominal pain and now dramatic increase in AST/ALT. The etiology is unclear, but she does have an abnormal nonmobile material in the gallbladder and the liver is mildly heterogenous. The hepatic and portal veins are patent. APAP level is negative , but she has been on 1000mg of acetaminophen three times daily for an extended time frame. She had also received a couple of doses of Percocet in the week leading up to admission. I have significant concern she may have hepatotoxicity secondary to the acetaminophen. Will go ahead and start IV acetylcysteine. Watch labs. We are also checking for viral hepatitis. Will follow closely. I discussed all of this with her daughter. (2) CHF (congestive heart failure) Status: Acute Assessment & Plan: Echo in 2016 showed an EF of 67%, RVSP of 68mmHg, and moderate to borderline severe [place]. She has been having worsening LE edema for a couple of weeks. She persistently has an elevated BNP back to 2016 (ranges from [phone]). Will follow daily weights, low sodium diet. Repeat echocardiogram. (3) ARF (acute renal failure) Status: Acute Assessment & Plan: Baseline creatinine is 1.1, but it increased to 1.4 yesterday and 1.8 this AM. Will give some IV fluids and follow closely. 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 Repeat antiphospholipid antibody testing came back negative. Patient had two episodes of blood clotting. Supra-therapeutic on warfarin. Daily INR, hold warfarin, give small dose of Vit K as the INR jatinder dramatically again today. (5) CHRONIC ATRIAL FIBRILLATION Status: Chronic Assessment & Plan: Currently in a sinus rhythm. Will follow on telemetry. Not on any medication for rate or rhythm control. Chronically on warfarin. See above. 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 Lymph nodes were not involved. Repeat CT scan January 06, 2016 did not show any change. The 2-3 mm noncalcified nodule in the posterior aspect of the right upper lobe and the right lower lobe remained unchanged. (7) History of colon cancer Status: Chronic Assessment & Plan: Resection with ileostomy placement and the reversal in 2016. (8) Dementia Status: Chronic Assessment & Plan: Some acute decompensation most likely due to current illness. Exam Sepsis Risk: Severe Sepsis Risk Problem Qualifiers (1) CHF (congestive heart failure): Heart failure type: unspecified Heart failure chronicity: acute Qualified Codes: I50.9 - Heart failure, unspecified ANA PATE MD October 27, 2017 11:51
[2017-10-27 12:03] VITALS: BP 127/58
[2017-10-27 16:04] VITALS: BP 125/71
[2017-10-27 19:28] VITALS: BP 121/84
[2017-10-27 20:45] LABS: PLATELET COUNT, AUTOMATED 200 K/uL (150-450)
[2017-10-27] MEDS: MELATONIN 3 MG TAB PO SCH (21:00)
[2017-10-27 21:04] LABS: INR 6.92
[2017-10-27 22:29] VITALS: BP 124/83
--- NOTE | 2017-10-27 22:33 | RADIOLOGY IMAGING REPORT ---
FACILITY: [facility] PATIENT NAME: Breanna Schwab : 1935 MR: [id number] V: [id number] EXAM DATE: ORDERING PHYSICIAN: ANA PATE TECHNOLOGIST: Location: [facility] [place] Patient: Breanna Schwab : 1935 Visit/Account:[id number] Date of Sevice: 10/27/2017 CT OF THE BRAIN WITHOUT CONTRAST HISTORY: Mental status change PROCEDURE: 3.0 mm contiguous axial sections were performed through the brain. Sagittal and coronal r eformats were submitted. COMPARISON: None FINDINGS: BRAIN: Brain and intracranial structures: There is no mass lesion, hemorrhage or acute infarct. Periventricu lar and deep white matter hypoattenuation likely flex chronic ischemic change. Cavernous carotid athe rosclerosis is extensive. Diffuse cerebral volume loss is mild to moderate. Orbits (included portions): Normal. Scalp: Normal. Skull: Normal. Paranasal sinuses and mastoid air cells (included portions): The nasal septum deviates to the right. Minimal mucosal thickening in the left maxillary sinus. IMPRESSION: 1. No evidence of acute intracranial abnormality by CT. 2. Chronic age-related change. One of the following dose optimization techniques was utilized in the performance of this exam: Autom ated exposure control; adjustment of the mA and/or kV according to the patient's size; or use of an i terative reconstruction technique. Specific details can be referenced in the facility's radiology C T exam operational policy. Report Dictated By: Deana Luevano MD at 10/27/2017 10:26 PM Report E-Signed By: Deana Luevano MD at 10/27/2017 10:30 PM WSN:[id number]
[2017-10-28] VITALS (7 sets, daily range): BP systolic 86–115; BP diastolic 58–100
[2017-10-28] MEDS: LEVOTHYROXINE SOD 0.025 MG TAB PO SCH (05:23)
[2017-10-28 06:13] LABS: PLATELET COUNT, AUTOMATED 182 K/uL (150-450)
[2017-10-28 06:22] LABS: INR 5.24
[2017-10-28] MEDS: PANTOPRAZOLE SOD 40 MG TABEC PO SCH (08:36)
[2017-10-28] MEDS: NYSTATIN 100,000 U/GM PWD 15GM TP SCH ×2 (08:37→20:27)
[2017-10-28] MEDS ORDERED: LACTULOSE 10 GM/15 ML UDCUP PO ONE (08:55)
[2017-10-28] MEDS ORDERED: POTASSIUM CHL PWDR 20 MEQ PKT PO SCH (09:00)
[2017-10-28] MEDS ORDERED: DILTIAZEM HCL* 100 MG ADDVIAL 100 MG in NS(*) 0.9% 100 ML ADDVANT BAG 100 ML IV SCH (10:30)
[2017-10-28] MEDS ORDERED: NS(*) 0.9% 500 ML BAG 500 ML ONE (11:08)
[2017-10-28] MEDS: NS(*) 0.9% 500 ML BAG 500 ML IV PRN (11:10)
[2017-10-28] MEDS: MORPHINE 2 MG/ML SYR IVP PRN (11:47)
--- NOTE | 2017-10-28 11:51 | Hospitalist Progress Note ---
Subjective Progress Notes Subjective This patient was admitted for liver failure. She had no acute events overnight. Patient Complains of: Cardiovascular: No: Chest Pain Respiratory: No: Shortness of Breath Physical Exam Vital Signs Date Time Temp Pulse Resp B/P (MAP) Pulse Ox O2 Delivery O2 Flow Rate FiO2 10/28/17 11:15 97.8 133 16 115/86 (96) 95 Nasal Cannula 3.0 Intake and Output 10/29/17 07:00 Intake Total 200 ml Balance 200 ml Intake Oral 200 ml Neuro: No Gross deficits Eyes: PERRLA Cardiovascular: Regular Rate and Rhythm Respiratory: Clear to Auscultation GI: Soft and Non-Tender Integumentary: No Jaundice Result Diagram: 10/28/1755110/28/17551 Item Value Date Time Prothromb Time International Ratio 5.24 *H 10/28/17551 Item Value Date Time Total Bilirubin 1.7 mg/dl H 10/28/17551 Aspartate Amino Transf (AST/SGOT) 3737 U/L H 10/28/17551 Alanine Aminotransferase (ALT/SGPT) 2189 U/L H 10/28/17 05 Assessment and Plan Problems: (1) Hepatic failure Assessment & Plan: She did have an abrupt increase in her liver tests. The etiology at this time appears to be related to unintentional acetaminophen toxicity. She has nearly completed a course of N-acetyl cystine. Her labs are currently stable. (2) Coagulopathy Assessment & Plan: Her INR was significantly increased. She did receive a dose of vitamin K yesterday. (3) CHF (congestive heart failure) Status: Acute Assessment & Plan: Echo in 2016 showed an EF of 67%, RVSP of 68mmHg, and moderate to borderline severe [place]. A repeat echocardiogram is pending. She did receive a dose of IV Lasix yesterday. Her weight is decreased slightly. (4) ARF (acute renal failure) Status: Acute Assessment & Plan: Her creatinine has been elevated above baseline, but is currently stable. 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 Repeat antiphospholipid antibody testing came back negative. She has had two episodes of blood clotting. Her INR was significantly elevated as above. (6) CHRONIC ATRIAL FIBRILLATION Status: Chronic Assessment & Plan: She developed a rapid ventricular rate today and was started on IV diltiazem. 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 Lymph nodes were not involved. Repeat CT scan January 06, 2016 did not show any change. The 2-3 mm noncalcified nodule in the posterior aspect of the right upper lobe and the right lower lobe remained unchanged. (8) History of colon cancer Status: Chronic Assessment & Plan: Resection with ileostomy placement and the reversal in 2015. (9) Dementia Status: Chronic Assessment & Plan: Some acute decompensation most likely due to current illness. Exam Sepsis Risk: No Definite Risk Problem Qualifiers (1) CHF (congestive heart failure): Heart failure type: unspecified Heart failure chronicity: acute Qualified Codes: I50.9 - Heart failure, unspecified JEAN MILLAN DO October 28, 2017 11:51
[2017-10-28] MEDS: MELATONIN 3 MG TAB PO SCH (20:28)
[2017-10-28] MEDS: DILTIAZEM(*) 5 MG/ML 5ML IVP 125 MG in NS(*) 0.9% 100 ML BAG 100 ML IV SCH (20:36)
[2017-10-29] MEDS: MORPHINE 2 MG/ML SYR IVP PRN (02:11)
[2017-10-29 02:12] VITALS: BP 94/53
[2017-10-29] MEDS: NS(*) 0.9% 500 ML BAG 500 ML IV PRN (04:36)
[2017-10-29 05:50] LABS: PLATELET COUNT, AUTOMATED 179 K/uL (150-450)
[2017-10-29 06:00] LABS: INR 3.24
[2017-10-29] MEDS: LEVOTHYROXINE SOD 0.025 MG TAB PO SCH (06:10)
--- NOTE | 2017-10-29 07:28 | Medical Nutrition Therapy ---
Nutrition Anthropometrics Height (Inches): 60.00 Height (Calculated Centimeters: 152.553350 Weight (Pounds): 163 Weight (Calculated Kilograms): 73.992 Nicholas Nutrition Score: Probably Inadequate Nicholas Nutrition Risk Score: 14 Dietary Referral Nutrition Risk Factors: TPN/PPN Nutrition Risk Comment: Physical Findings Physical Appearance: Obese BMI 30-39 Skin Appearance Skin Appearance: Edema Edema Location Modifier: Both Edema Location: Lower Extremity Type of Edema: Degree of Edema: 3+ Gastrointestinal Symptoms GI Symtoms: Appetite Changes, Constipation, Change in Bowel Pattern Tube Present: Bowel Sounds: Recent Bowel Pattern: Stool Characteristics: Nutritional Diagnosis Nutritional Risk Acuity 1: No Appetite Nutritional Risk Acuity 2: CHF w/Complication, Chronic Renal Failure Nutritional Risk Acuity 3: Cancer, GERD Past Medical History: HTN, COPD, SBO, history of colon and lung Ca, dementia, [place], DVT, Htn, GERD, dysphagia, hypothyroid, CHF, acute renal failure, elevated LFTS Nutritional Acuity: 2-Moderate Nutrition Diagnosis: Inadequate Food Intake Nutrition Etiology: Change in Appetite Nutrition Problem/Etiology/Sym: Inadequate food intake related to change in appetite AEB no oral intake the past two days. Energy Requirement: 1580 ([place] adj wt BMI > 27.5 1316 with AF 1.2 and SF 1.2 1579.68 kcal) Protein Requirement: 81 (1.1g/kg pro 1.1 X 73.99) Fluid Requirement: 1580 (1ml/kcal) Diet Type: CHF Diet Nutrition Intervention: Cont diet as ordered, Encourage intake, Between meal supplement Do Not Serve Any of the Follow: [employer] Diet Comment To RSA: OFFER NUTRITION SUPPLEMENT Nutrition Monitoring & Eval Nutrition Goals: Fluid Restrictions RD Patient Assessment Time: [address] Assessment Type: RD Assessment Patient Nutrition Acuity: 3-Mild Follow Up Date: October 31, 2017 Nutritional Comment: 10/27 Pt admited for elevated liver enzymes. Pt was newly diagnosied with CHF (10/25) and returns yesterday for abdominal pain and edema. Pt states that she feels nausea and unable to take CHF medication. Pt is on CHF diet with no intake recorded at this time. [place] labs indicate elevated liver enzymes, elevated K+ 7.5, elevated BUN 22, and elevated creatinine 1.8. Continue to monitor pt progress and follow up tomorrow. MT 10/28 Pt continues on CHF diet with no oral intake for two days. Provide nutrition supplement to help meet nutritional needs. Pt may benefit from speech therapy, due to pt having difficulty swallowing her pills and history of dysphagia. Pt liver function tests have worsened significantly in past 24 hours. Pt liver enzymes continue to remain elevated. Other notable labs are elevated random blood glucose 144, low K + 3.3. Continue to monitor pt progress, lab values, and encourage intake. SAUL DORSEY October 28, 2017 09:47
[2017-10-29 07:30] VITALS: BP 112/55
[2017-10-29] MEDS: NYSTATIN 100,000 U/GM PWD 15GM TP SCH ×2 (08:41→21:14)
[2017-10-29] MEDS: PANTOPRAZOLE SOD 40 MG TABEC PO SCH (08:41)
[2017-10-29] MEDS ORDERED: DILTIAZEM CD 120 MG CAPCR PO SCH (09:00)
[2017-10-29] MEDS: KCL (*) 20 MEQ/100 ML PREMIX 100 ML IV SCH ×2 (09:44→12:12)
[2017-10-29] MEDS: DILTIAZEM(*) 5 MG/ML 5ML IVP 125 MG in NS(*) 0.9% 100 ML BAG 100 ML IV SCH (10:00)
--- NOTE | 2017-10-29 11:28 | Hospitalist Progress Note ---
Subjective Progress Notes Subjective She is without complaints. No concerns from o/n staff. Still on the diltiazem drip. Physical Exam Vital Signs Date Time Temp Pulse Resp B/P (MAP) Pulse Ox O2 Delivery O2 Flow Rate FiO2 10/29/17 08:45 107 10/29/17 07:30 97.6 16 112/55 (74) 96 Oxy Mask 3.0 Intake and Output 10/30/17 07:00 Intake Total 240 ml Balance 240 ml Intake Oral 240 ml General Appearance: Alert, Awake, No Acute Distress Neuro: Other (Confused to place and date.) Cardiovascular: Regular Rate and Rhythm GI: Soft and Non-Tender Extremities: No Edema Result Diagram: 10/29/1752910/29/17529 Assessment and Plan Problems: (1) Hepatic failure Assessment & Plan: She presented with acute increase in LFT's, ARF, and borderline elevated of troponin. The etiology is unclear, but seems to fit a global hypotensive event. She has been on scheduled Tylenol at 3 grams. She has completed a course of N-acetyl cystine because of concern of chronic Tylenol toxicity contributing. Her labs are improving. (2) CHRONIC ATRIAL FIBRILLATION Status: Chronic Assessment & Plan: She developed a rapid ventricular rate and was started on IV diltiazem. Converting to oral diltiazem. Might consider Carvedilol or Toprol with the EF of 50% for rate control in the future. Supratherapeutic with warfarin. See above. (3) Coagulopathy Assessment & Plan: Secondary to warfarin use, but potentially exacerbated by liver injury. Her INR was significantly increased upon admission. She did receive a dose of vitamin K on 10/27. INR is improving. No evidence of bleeding. (4) CHF (congestive heart failure) Status: Acute Assessment & Plan: Echo in 2016 showed an EF of 67%, RVSP of 68mmHg, and moderate to borderline severe [place]. A repeat echocardiogram has not been transcribed, but EF reported at 50% (in afib), new mild AI. She did receive a dose of IV Lasix. She is on a fluid restricted diet and getting daily wts. (5) ARF (acute renal failure) Status: Acute Assessment & Plan: Her creatinine had been elevated above baseline, but is currently stable. 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 Repeat antiphospholipid antibody testing came back negative. She has had two episodes of blood clotting. Her INR was significantly elevated as above. 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 Lymph nodes were not involved. Repeat CT scan January 06, 2016 did not show any change. The 2-3 mm noncalcified nodule in the posterior aspect of the right upper lobe and the right lower lobe remained unchanged. (8) History of colon cancer Status: Chronic Assessment & Plan: Resection with ileostomy placement and the reversal in 2015. (9) Dementia Status: Chronic Assessment & Plan: Some acute decompensation most likely due to current illness. Exam Sepsis Risk: No Definite Risk Problem Qualifiers (1) CHF (congestive heart failure): Heart failure type: unspecified Heart failure chronicity: acute Qualified Codes: I50.9 - Heart failure, unspecified FERNANDO NATH MD October 29, 2017 11:28
[2017-10-29 12:15] VITALS: BP 110/75
[2017-10-29 14:54] VITALS: BP 105/55
[2017-10-29] MEDS ORDERED: oxyCODONE HCL 5 MG CAP PO PRN (16:50)
[2017-10-29] MEDS ORDERED: CELECOXIB 100 MG CAP PO PRN (16:50)
[2017-10-29] MEDS ORDERED: POTASSIUM CHL 10 MEQ TABCR PO SCH (17:00)
--- NOTE | 2017-10-29 18:34 | RADIOLOGY IMAGING REPORT ---
FACILITY: [facility] - [place] PATIENT NAME: GINA ZUNIGA : [id number] MR: [id number] V: [id number] EXAM DATE: [id number] ORDERING PHYSICIAN: FERNANDO NATH TECHNOLOGIST: Afia Cramer EXAMINATION:TWO-DIMENSIONAL ECHOCARDIOGRAPH REASON:CHEST PAIN 2D Measurements (normal values in centimeters) LV endLV endRV endVent.LV PostAorticLeftPercent DiastolicSystolicDiastolicSeptumWallRootAtriumShortening (3.5-5.7)(0.9-2.6)(0.6-1.1)(0.6-1.1)(2.0-3.7)(1.9-4.0)(25-35%) [id number]% STROKE VOLUME: 54ml ESTIMATED EJECTION FRACTION:49-51% LEFT VENTRICLE: Ejection fraction 50% with anterolateral hypokinesis & a dyskinetic septum consistent with conduction abnormality. Patient remains in atrial fibrillation throughout the study & unable to assess diastolic dysfunction accurately. RIGHT VENTRICLE: Normal size & function. RIGHT ATRIUM: Moderately enlarged. LEFT ATRIUM: Severely enlarged. AORTIC VALVE: No evidence of aortic stenosis, mild aortic insufficiency. PULMONIC VALVE: Poorly visualized but mild pulmonic insufficiency. MITRAL VALVE: Moderate to severe mitral regurgitation, no evidence of stenosis. Mild posterior leaflet prolapse. TRICUSPID VALVE: Moderate to severe regurgitation, RVSP at 70mm Hg with 15mm Hg estimated RA pressure. PERICARDIUM: No evidence of pericardial effusion. EXTRACARDIAC STRUCTURES: No pericardial effusion. OVERALL IMPRESSION: 1. Ejection fraction 50% with anterolateral hypokinesis & dyskinetic septum consistent with conduction abnormality. Patient is in atrial fibrillation throughout & thus unable to accurately assess diastolic function. 2. Moderately enlarged right atrium. 3. Severely enlarged left atrium. 4. Mild aortic regurgitation. 5. Moderate to severe mitral regurgitation. 6. Tricuspid valve shows moderate to severe tricuspid regurgitation with an RVSP of 70mm Hg. In comparison to prior 03/12/16, there is new aortic regurgitation, otherwise largely unchanged. Dictated by: Brad Evans M.D. on 10/28/2017 at 8:02 Transcribed by: MARY LOU on 10/29/2017 at 10:49 Approved by: Brad Evans M.D. on 10/29/2017 at 18:32 [facility]
[2017-10-29 20:02] VITALS: BP 101/60
[2017-10-29] MEDS: MELATONIN 3 MG TAB PO SCH (21:00)
[2017-10-29 23:14] VITALS: BP 117/62
[2017-10-30 03:22] VITALS: BP 98/49
[2017-10-30 05:51] LABS: PLATELET COUNT, AUTOMATED 226 K/uL (150-450)
[2017-10-30 05:55] LABS: INR 2.75
[2017-10-30] MEDS: LEVOTHYROXINE SOD 0.025 MG TAB PO SCH ×2 (06:00→06:16)
[2017-10-30] MEDS ORDERED: FUROSEMIDE 20 MG/2 ML VIAL IVP ONE (06:15)
[2017-10-30 06:27] VITALS: BP 122/59
[2017-10-30 07:07] VITALS: BP 109/54
[2017-10-30] MEDS ORDERED: LACTULOSE 10 GM/15 ML UDCUP PO SCH (09:00)
[2017-10-30] MEDS: NYSTATIN 100,000 U/GM PWD 15GM TP SCH ×2 (10:05→21:34)
--- NOTE | 2017-10-30 11:10 | Hospitalist Progress Note ---
Subjective Progress Notes Subjective This patient was admitted for hepatic failure. She had no acute events overnight. Patient Complains of: Neurological: Confusion Cardiovascular: No: Chest Pain Respiratory: No: Shortness of Breath Physical Exam Vital Signs Date Time Temp Pulse Resp B/P (MAP) Pulse Ox O2 Delivery O2 Flow Rate FiO2 10/30/17 10:08 76 10/30/17 10:08 94 Oxy Mask 4.0 10/30/17 07:07 97.6 20 109/54 (72) Neuro: No Gross deficits Cardiovascular: Regular Rate and Rhythm Respiratory: Clear to Auscultation GI: Soft and Non-Tender Extremities: No Edema Integumentary: Jaundice Result Diagram: 10/30/17 0539 10/30/17 0539 Item Value Date Time Ammonia 45 UMOL/L H 10/30/17538 Assessment and Plan Problems: (1) Hepatic failure Assessment & Plan: She presented with acute increase in LFT's, ARF, and borderline elevated of troponin. She has been on scheduled Tylenol at 3 grams. She has completed a course of N-acetyl cystine because of concern of chronic Tylenol toxicity contributing. Her liver enzymes have decreased, but her bilirubin and ammonia are increased. We have started her on lactulose. (2) CHRONIC ATRIAL FIBRILLATION Status: Chronic Assessment & Plan: She developed a rapid ventricular rate and was started on IV diltiazem. She has now been converted to oral dosing. (3) Coagulopathy Assessment & Plan: Her INR was significantly increased upon admission. She did receive a dose of vitamin K on 10/27. INR is improving. No evidence of bleeding. (4) CHF (congestive heart failure) Status: Acute Assessment & Plan: Echo in 2016 showed an EF of 67%, RVSP of 68mmHg, and moderate to borderline severe [place]. A repeat echocardiogram has not been transcribed, but EF reported at 50% (in afib), new mild AI. She did receive a dose of IV Lasix. She is on a fluid restricted diet and getting daily wts. (5) ARF (acute renal failure) Status: Acute Assessment & Plan: Her creatinine had been elevated above baseline, but is currently stable. 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 Repeat antiphospholipid antibody testing came back negative. She has had two episodes of blood clotting. Her INR was significantly elevated as above. 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 Lymph nodes were not involved. Repeat CT scan January 06, 2016 did not show any change. The 2-3 mm noncalcified nodule in the posterior aspect of the right upper lobe and the right lower lobe remained unchanged. (8) History of colon cancer Status: Chronic Assessment & Plan: Resection with ileostomy placement and the reversal in 2015. (9) Dementia Status: Chronic Assessment & Plan: Some acute decompensation most likely due to current illness. Exam Sepsis Risk: No Definite Risk Problem Qualifiers (1) CHF (congestive heart failure): Heart failure type: unspecified Heart failure chronicity: acute Qualified Codes: I50.9 - Heart failure, unspecified JEAN MILLAN DO October 30, 2017 11:10
--- NOTE | 2017-10-30 11:41 | Medical Nutrition Therapy ---
Nutrition Anthropometrics Height (Inches): 60.00 Height (Calculated Centimeters: 152.092913 Weight (Pounds): 165 Weight (Calculated Kilograms): 74.843 Nicholas Nutrition Score: Probably Inadequate Nicholas Nutrition Risk Score: 14 Dietary Referral Nutrition Risk Factors: TPN/PPN Nutrition Risk Comment: Nutritional Diagnosis Nutritional Risk Acuity 2: Pr Appetite > 3d, CHF w/Complication, Chronic Renal Failure Nutritional Risk Acuity 3: Cancer Past Medical History: HTN, COPD, SBO, history of colon and lung Ca, dementia, [place], DVT, Htn, GERD, dysphagia, hypothyroid, CHF, acute renal failure, elevated LFTS Nutritional Acuity: 2-Moderate Nutrition Diagnosis: Inadequate Food Intake Nutrition Etiology: Change in Appetite Nutrition Problem/Etiology/Sym: Inadequate food intake related to change in appetite AEB 0-25% oral intake since admission. Energy Requirement: 1580 ([place]ieves [place] adj wt BMI > 27.5 1316 with AF 1.2 and SF 1.2 1579.68 kcal) Protein Requirement: 81 (1.1g/kg pro 1.1 X 73.99) Fluid Requirement: 1580 (1ml/kcal) Diet Type: Diet as Tolerated VINICIO/REG, Fiber Restricted Nutrition Intervention: Cont diet as ordered, Encourage intake, Between meal supplement Diet Comment To RSA: OFFER NUTRITION SUPPLEMENT Nutrition Monitoring & Eval Nutrition Goals: Eat 50-100% Meal Nutrition Follow-Up: Poor Intake RD Patient Assessment Time: [address] Assessment Type: RD Re-Assessment Patient Nutrition Acuity: 2-Moderate Follow Up Date: November 01, 2017 Nutritional Comment: 10/27 Pt admited for elevated liver enzymes. Pt was newly diagnosied with CHF (10/25) and returns yesterday for abdominal pain and edema. Pt states that she feels nausea and unable to take CHF medication. Pt is on CHF diet with no intake recorded at this time. [place] labs indicate elevated liver enzymes, elevated K+ 7.5, elevated BUN 22, and elevated creatinine 1.8. Continue to monitor pt progress and follow up tomorrow. MT 10/28 Pt continues on CHF diet with no oral intake for two days. Provide nutrition supplement to help meet nutritional needs. Pt may benefit from speech therapy, due to pt having difficulty swallowing her pills and history of dysphagia. Pt liver function tests have worsened significantly in past 24 hours. Pt liver enzymes continue to remain elevated. Other notable labs are elevated random blood glucose 144, low K + 3.3. Continue to monitor pt progress, lab values, and encourage intake. MT 10/30 Intake cont very poor intake ranging 0-25%. Pt is being offered nutrional supplements to increase kcal and protein intake. Diet was changed to regular with fluid restiction to encourage greater selection of food which may improve intake. Alb increase to 3.3. AST and ALT cont elevated. Cont to monitor and encourage intake. Nurt supp may be needed to meet nutr needs if pt cont poor oral intake. MITCHELL JUSTICE October 30, 2017 11:41
[2017-10-30 12:09] VITALS: BP 126/64
[2017-10-30] MEDS ORDERED: NS(*) 0.9% 1000 ML BAG 1,000 ML ONE (13:50)
[2017-10-30] MEDS ORDERED: NS(*) 0.9% 1000 ML BAG 1,000 ML IV PRN ×2 (13:55→20:19)
[2017-10-30 15:28] VITALS: BP 111/55
[2017-10-30 19:46] VITALS: BP 110/59
[2017-10-30] MEDS: MELATONIN 3 MG TAB PO SCH (21:00)
[2017-10-30] MEDS ORDERED: NS 0.9% IRRIGATION 1000ML PLCT IR ONE (22:55)
[2017-10-30] MEDS ORDERED: LACTULOSE 10 GM/15 ML UDCUP PR ONE (22:55)
[2017-10-31 00:53] VITALS: BP 120/65
[2017-10-31 04:19] VITALS: BP 142/74
[2017-10-31 05:52] LABS: INR 2.32
[2017-10-31] MEDS ORDERED: NS(*) 0.9% 1000 ML BAG 1,000 ML IV PRN (06:10)
[2017-10-31] MEDS: NYSTATIN 100,000 U/GM PWD 15GM TP SCH ×2 (09:00→20:45)
--- NOTE | 2017-10-31 09:30 | RADIOLOGY IMAGING REPORT ---
FACILITY: [facility] - [place] PATIENT NAME: Breanna Schwab : 1935 MR: [id number] V: [id number] EXAM DATE: ORDERING PHYSICIAN: ANA PATE TECHNOLOGIST: Location: [facility] [place] Patient: Breanna Schwab : 1935 Visit/Account:[id number] Date of Sevice: 10/31/2017 CHEST SINGLE AP AP portable at 0844 hours COMPARISON: 10/25/2017 PA lateral chest HISTORY: hypoxia/?aspiration FINDINGS: CARDIAC/VASC: Moderate cardiomegaly overall stable. Vasculature is obscured by bilateral lung opac ities which are new. MEDIASTINUM: Aortic calcifications. Mediastinal contours are obscured by bilateral lung opacities. LUNGS/PLEURA: There is no pneumothorax. There is diffuse confluent consolidation bilaterally, new fr om previous, right lung more than left, lower lobes worse than upper lobes. This could represent wide spread bilateral pneumonia or pulmonary edema. Cannot exclude a small left effusion. No right costoph renic angle blunting. BONES: No fracture or visible bony lesion. Degenerative changes in the visualized spine. OTHER:Negative. IMPRESSION: 1. Widespread bilateral lung consolidation, new from 10/25/2017 which could represent diffuse pneumon ia or pulmonary edema. 2. Moderate stable cardiomegaly. Report Dictated By: Colton Woody at 10/31/2017 9:24 AM Report E-Signed By: Colton Woody at 10/31/2017 9:26 AM WSN:[id number]
--- NOTE | 2017-10-31 09:37 | Hospitalist Progress Note ---
Subjective Progress Notes Subjective Less responsive. Oxygen requirement has increased significantly. She is not clearing secretions. Physical Exam Vital Signs Date Time Temp Pulse Resp B/P (MAP) Pulse Ox O2 Delivery O2 Flow Rate FiO2 10/31/17 07:31 102 10/31/17 07:11 92 Non-Rebreather 15.0 10/31/17 04:19 97.8 18 142/74 (96) Intake and Output 11/01/17 07:00 Output Total 10 ml Balance -10 ml Output Urine Total 10 ml General Appearance: Other (somnolent/she does awaken when moved/she does get mildly agitated and respond with "no" when moved) Neuro: Other (she prefers to lie in position with left side down) Cardiovascular: Other (Irregular slightly tachycardic) Respiratory: Other (coarse upper airway breath sounds with diffuse rhonchi and rales in most lung lucia) Chest: No Tenderness GI: Other (soft, but does respond with "no" with palpation over RUQ) Extremities: Warm, Perfused, Edema Integumentary: Generalized Fragile Skin Result Diagram: 10/30/17 0539 10/31/17 0530 Assessment and Plan Problems: (1) Hepatic failure Assessment & Plan: She presented with acute increase in LFTs, ARF, and borderline elevated of troponin. She has been on scheduled Tylenol at 3 grams daily with infrequent dosing of Percocet as well. She has completed a course of N-acetyl cystine because of concern of chronic Tylenol toxicity contributing. Her liver enzymes have decreased, but her bilirubin and ammonia are increased. She has been started on lactulose and her ammonia is back down today. (2) CHRONIC ATRIAL FIBRILLATION Status: Chronic Assessment & Plan: She developed a rapid ventricular rate and was started on IV diltiazem. She has now been converted to oral dosing. (3) Coagulopathy Assessment & Plan: Her INR was significantly increased upon admission. She did receive a dose of vitamin K on 10/27. INR is improving (now in therapeutic range at 2.32). No evidence of bleeding. (4) CHF (congestive heart failure) Status: Acute Assessment & Plan: Echo in 2016 showed an EF of 67%, RVSP of 68mmHg, and moderate to borderline severe [place]. Repeat echocardiogram EF reported at 50% (in a-fib), new mild AI with RVSP 70mmHg. She did receive a dose of IV Lasix. She is on a fluid restricted diet and getting daily weights. (5) ARF (acute renal failure) Status: Acute Assessment & Plan: Her creatinine had been elevated above baseline, but improved with IV fluids. It has risen again today (now at 1.5). 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 Repeat antiphospholipid antibody testing came back negative. She has had two episodes of blood clotting. Her INR was significantly elevated as above. She is still in therapeutic range as of today. 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 Lymph nodes were not involved. Repeat CT scan January 06, 2016 did not show any change. The 2-3 mm noncalcified nodule in the posterior aspect of the right upper lobe and the right lower lobe remained unchanged. (8) History of colon cancer Status: Chronic Assessment & Plan: Resection with ileostomy placement and the reversal in 2015. (9) Dementia Status: Chronic Assessment & Plan: Some acute decompensation most likely due to current illness. (10) Aspiration pneumonia Status: Acute Assessment & Plan: It appears she most likely has an aspiration pneumonia involving her right middle and lower lobes and possibly on left as well. Her family has been considering transition into comfort care in the past. Will discuss with her family regarding their wishes. Exam Sepsis Risk: Severe Sepsis Risk Problem Qualifiers (1) CHF (congestive heart failure): Heart failure type: unspecified Heart failure chronicity: acute Qualified Codes: I50.9 - Heart failure, unspecified ANA PATE MD October 31, 2017 09:37
[2017-10-31] MEDS: CEFEPIME HCL 2 GM VIAL IVP SCH ×2 (10:19→22:24)
[2017-10-31 10:55] VITALS: BP 132/85
[2017-10-31 15:03] VITALS: BP 109/61
[2017-10-31] MEDS: MELATONIN 3 MG TAB PO SCH (20:45)
[2017-11-01 04:55] VITALS: BP 85/42
[2017-11-01] MEDS ORDERED: MORPHINE 4 MG/ML SDV IVP PRN (06:00)
[2017-11-01] MEDS ORDERED: LORazepam 2 MG/ML VIAL IVP PRN (06:00)
[2017-11-01] MEDS ORDERED: PROMETHAZINE 25 MG/ML 1 ML AMP IVP PRN (06:00)
[2017-11-01] MEDS: NYSTATIN 100,000 U/GM PWD 15GM TP SCH (09:37)
--- NOTE | 2017-11-01 11:03 | Death Summary ---
Pronounced Date: November 01, 2017 Pronounced Time: 10:08 Preliminary Cause of : Aspiration pneumonia Assessment: Hepatic failure, chronic atrial fibrillation, congestive heart failure, acute renal failure, history of deep venous throbosis, history of lung cancer, history of colon cancer, dementia, depression History of Present Illness Please see admission history and physical for details. Hospital Course The patient was admitted to [facility] on 10/26 with abdominal pain, worsening edema, poor oral intake and trouble taking her pills. Work up revealed she was in hepatic failure. She was given Mucomyst and her LFTs did improve some. She was also noted to have acute renal failure and was treated with IV fluids. She had history of atrial fibrillation and presented with rapid ventricular response which was initially treated with IV diltiazem and then converted to oral. Her INR was elevated on admission and she received a dose of vitamin K. She was noted to have increased LE edema. An echocardiogram showed an ejection fraction of 50% (in a fib) and pulmonary hypertension. She did receive a dose of IV Lasix. She had history of DVTs in the past and had been anticoagulated but her INR was high on admission so she received vitamin K as above. She had history of colon and lung cancers which had been previously treated and were not active at the time of admission. She also had a history of dementia and depression. On 10/31, the patient became less responsive and CXR showed bilateral pneumonia felt to be due to aspiration. The patient's family elected to transition her to comfort care. She on 11/01/17 at 1008 with her family by her side. Copies to: ZO DENIS MD, JULIE A MD November 01, 2017 11:03
--- NOTE | 2017-11-01 11:07 | Medical Nutrition Therapy ---
Nutrition Anthropometrics Height (Inches): 60.00 Height (Calculated Centimeters: 152.451850 Weight (Pounds): 165 Weight (Calculated Kilograms): 74.843 Nicholas Nutrition Score: Very Poor Nicholas Nutrition Risk Score: 8 Dietary Referral Nutrition Risk Factors: TPN/PPN Nutrition Risk Comment: Nutritional Diagnosis Nutritional Risk Acuity 2: Pr Appetite > 3d, CHF w/Complication, Chronic Renal Failure Nutritional Risk Acuity 3: Cancer Past Medical History: HTN, COPD, SBO, history of colon and lung Ca, dementia, AR, DVT, Htn, GERD, dysphagia, hypothyroid, CHF, acute renal failure, elevated LFTS Nutritional Acuity: 2-Moderate Nutrition Diagnosis: Inadequate Food Intake Nutrition Etiology: Change in Appetite Nutrition Problem/Etiology/Sym: Inadequate food intake related to change in appetite AEB 0-25% oral intake since admission. Energy Requirement: 1580 (Nieves Luxor adj wt BMI > 27.5 1316 with AF 1.2 and SF 1.2 1579.68 kcal) Protein Requirement: 81 (1.1g/kg pro 1.1 X 73.99) Fluid Requirement: 1580 (1ml/kcal) Diet Type: Diet as Tolerated VINICIO/REG, Fiber Restricted Nutrition Intervention: Cont diet as ordered Nutrition Monitoring & Eval RD Patient Assessment Time: [address] Assessment Type: RD Re-Assessment Patient Nutrition Acuity: 2-Moderate Follow Up Date: November 04, 2017 Nutritional Comment: 10/27 Pt admited for elevated liver enzymes. Pt was newly diagnosied with CHF (10/25) and returns yesterday for abdominal pain and edema. Pt states that she feels nausea and unable to take CHF medication. Pt is on CHF diet with no intake recorded at this time. [place] labs indicate elevated liver enzymes, elevated K+ 7.5, elevated BUN 22, and elevated creatinine 1.8. Continue to monitor pt progress and follow up tomorrow. MT 10/28 Pt continues on CHF diet with no oral intake for two days. Provide nutrition supplement to help meet nutritional needs. Pt may benefit from speech therapy, due to pt having difficulty swallowing her pills and history of dysphagia. Pt liver function tests have worsened significantly in past 24 hours. Pt liver enzymes continue to remain elevated. Other notable labs are elevated random blood glucose 144, low K + 3.3. Continue to monitor pt progress, lab values, and encourage intake. MT 10/30 Intake cont very poor intake ranging 0-25%. Pt is being offered nutrional supplements to increase kcal and protein intake. Diet was changed to regular with fluid restiction to encourage greater selection of food which may improve intake. Alb increase to 3.3. AST and ALT cont elevated. Cont to monitor and encourage intake. Nurt supp may be needed to meet nutr needs if pt cont poor oral intake. 11/01 Dr reports pt somulent and less responsive. Pt has aspiration pneumonia and has [address] intake [address] reporting family is considering comfort care. Recommend enteral nutrition to meet nutritional needs unless comfort care desired. MITCHELL DOMINGUEZ November 01, 2017 11:07
== END 2017-11-01 10:08 | disposition expired | DRG 441 ==
LOC: ER 12:19 → MED 15:30
PROVIDERS: ADMIT Internal Medicine; ATTEND Internal Medicine
DX: K71.10 Toxic liver disease with hepatic necrosis, without coma (principal); J69.0 Pneumonitis due to inhalation of food and vomit; N17.9 Acute kidney failure, unspecified; D68.4 Acquired coagulation factor deficiency; I48.0 Paroxysmal atrial fibrillation; I50.9 Heart failure, unspecified; I27.20 Pulmonary hypertension, unspecified; F03.90 Unspecified dementia, unspecified severity, without behavioral disturbance, psychotic disturbance, mood disturbance, and anxiety; F32.9 Major depressive disorder, single episode, unspecified; R13.10 Dysphagia, unspecified; T39.1X5A Adverse effect of 4-Aminophenol derivatives, initial encounter; I34.0 Nonrheumatic mitral (valve) insufficiency; K21.9 Gastro-esophageal reflux disease without esophagitis; E03.9 Hypothyroidism, unspecified; Z51.5 Encounter for palliative care; I25.2 Old myocardial infarction; Z90.710 Acquired absence of both cervix and uterus; Z87.891 Personal history of nicotine dependence; Z90.2 Acquired absence of lung [part of]; Z79.01 Long term (current) use of anticoagulants; Z85.038 Personal history of other malignant neoplasm of large intestine; Z85.118 Personal history of other malignant neoplasm of bronchus and lung; Z86.718 Personal history of other venous thrombosis and embolism; Z86.73 Personal history of transient ischemic attack (TIA), and cerebral infarction without residual deficits; Z79.899 Other long term (current) drug therapy
CPT/HCPCS: 36415; 70450; 71045; 71046; 74177; 76705; 80329; 81001; 82040; 82140; 82150; 82247; 82310; 82374; 82435; 82550; 82565; 82947; 83690; 83735; 83880; 84075; 84132; 84155; 84295; 84443; 84450; 84460; 84484; 84520; 85025; 85610; 85730; 86140; 86704; 86705; 86706; 86707; 86708; 86709; 86803; 87340; 87350; 93005; 93306; 97161; 97166; 99284; 99285; A4338; A4353; C1758; J0132; J0692; J1940; J2270; J2405; J3430; J3480; J3490; J7030; J7040; J7050; J7060; J7070; Q9967

== ENCOUNTER → 2017-10-26 | Outpatient (CLI) | payer MEDICARE, BC, MEDICAID ==
[2017-07-11 10:53] VITALS: BMI 31.0
[~2017-10-26] MED LIST changes: +FURO40TA35 PO
[2017-10-26 08:49] LABS: INR 4.3
== END ==
LOC: ZZSPRING 01:24
PROVIDERS: ATTEND Family Medicine
DX: Z51.81 Encounter for therapeutic drug level monitoring (principal); Z79.01 Long term (current) use of anticoagulants
CPT/HCPCS: 36415; 85610